=== PATIENT | male | born 1940 | race Caucasian/White ===

== ENCOUNTER 2017-03-22 09:11 | Outpatient (CLI) | payer MEDICARE, OTHER ==
--- NOTE | 2017-03-22 12:40 | CT ---
CT THORAX WITHOUT IV CONTRAST: Date: 03-22-17 History: Follow up left lower lobe nodule. COPD. Comparison: No prior CT available for direct comparison. FINDINGS: An approximately 4 mm pleural based nodular density is seen in the superior aspect of the major fiss ure on the right. Calcified granuloma is present at the right lung apex. No additional noncalcified pulmonary nodule i s seen within the lungs bilaterally. There is mild linear increased density seen in the right upper lobe which may be related to an area of mild scarring. No pleural effusion is present. Prominent vascular calcifications are seen in the coronary arteries as well as involving the visuali zed thoracic and upper abdominal aorta. There are calcified mediastinal and right hilar lymph nodes identified. Post cholecystectomy changes are noted. There is limited evaluation of the vascular structures due to the nonenhanced examination. There is a low density incompletely imaged calcific lesion in the superior pole right kidney, also s een on prior CT lumbar spine on 11-15-14 and also visualized on MRI lumbar spine of 10-24-14 likely re lated to a small cyst. There is a small nodule seen within the subcutaneous soft tissues left anterolateral chest wall whic h measures 13 mm in greatest dimensions and may represent a small lymph node. IMPRESSION: 1. No discrete pulmonary nodule is identified in the left lower lobe as indicated by provided histor y. There is a tiny 4 mm pleural based nodular density along the major fissure which is in the right upper lobe. This may represent a small focal area of nodular pleural thickening. 2. Prominent vascular calcifications in the coronary arteries. 3. Hypodense cystic region superior pole right kidney seen on prior studies in 2015 and likely repre sents a renal cyst. 4. Small subcutaneous nodule left anterolateral chest may represent a small lymph node. POS: [facility]
== END 2017-03-22 09:12 | disposition home or self-care (01) ==
LOC: CT 09:11
PROVIDERS: ATTEND Orthopaedic Surgery Sports Medicine
DX: R91.1 Solitary pulmonary nodule (principal); R91.8 Other nonspecific abnormal finding of lung field; I25.10 Atherosclerotic heart disease of native coronary artery without angina pectoris; N28.89 Other specified disorders of kidney and ureter
CPT/HCPCS: 71250

== ENCOUNTER 2017-06-11 21:30 | Inpatient (IN) | payer MEDICARE ==
[2017-06-11 22:15] LABS: #Eosinphils 0.2 thou/uL (0.0-0.7); #Lymphocytes 2.1 thou/uL (1.20-3.40); #Monocytes 1.3 thou/uL (0.11-0.59); #Neutrophils 10.1 thou/uL (1.40-6.50); %Basophils 0.2 % (0.0-1.0); %Eosinophils 1.4 % (0.0-10.0); %Lymphocytes 15.2 % (21.0-51.0); %Monocytes 9.6 % (0.0-10.0); %Neutrophils 73.5 % (42.0-75.0); Hemoglobin 11.8 g/dL (14.0-18.0); Mean Corpuscular HGB CONC 32.1 g/dL (32.0-36.0); Mean Corpuscular Hemoglobin 27.6 pg (27.0-31.0); Mean Corpuscular Volume 86.3 fl (80.0-94.0); Mean Platelet Volume 7.3 fL (7.4-10.4); Platelet Count 240 thou/uL (130-400); RBC Distribution Width 15.8 % (11.5-14.5); Red Blood Cell (RBC) Count 4.25 mill/uL (4.70-6.10); White Blood Cell (WBC) Count 13.7 thou/uL (4.8-10.8)
[2017-06-11 22:20] LABS: Actual Bicarbonate (HCO3a) 27.1 mEq/L (22-26); Base Excess (BEa) 2.2 mEq/L (0 (+/-) 2.5); CO2 Tension 43.6 mmHg (35.0-45.0); Hematocrit-ABG 36.1 % (42.0-52.0); Hemoglobin (Hb) 11.2 g/dL (14.0-18.0); O2 Tension (PaO2) 174.9 mmHg (80.0-100.0); pH, Arterial 7.41 (7.35-7.45)
[2017-06-11 22:21] LABS: PTT 33.2 SEC (22.9-36.1)
[2017-06-11 22:21] LABS: Analyzer IN Cardio ER; Calcium, Ionized 1.2 mmol/L (1.12-1.30); Puncture Site RRA
[2017-06-11] MEDS ORDERED: Nitroglycerin 2% Ointment 1 INCH/1 GM Packet ONE (22:25)
[2017-06-11] MEDS ORDERED: Furosemide 40 MG/4 ML VIAL ONE (22:25)
[2017-06-11] MEDS ORDERED: Dexamethasone 10 MG/ML VIAL ONE (22:25)
[2017-06-11 22:26] LABS: INR-International Normal Ratio 1.1; Prothrombin Time 14.1 SEC (12.0-14.7)
[2017-06-11 22:36] LABS: ALT (SGPT) 24 U/L (8-55); AST (SGOT) 20 U/L (5-34); Alkaline Phosphatase 98 U/L (40-150); Anion Gap 13 mmol/L (10-20); BUN (Urea Nitrogen) 29 mg/dL (8.4-25.7); Bilirubin, Total 0.4 mg/dL (0.2-1.2); CK (CPK) 105 U/L (30-200); Calc. Creatinine Clearance 0 mL/min (70-130); Carbon Dioxide 28 mmol/L (23-31); Chloride 103 mmol/L (98-107); Estimated GFR-MDRD 36; Globulin 3.3 g/dL (2.4-3.5); Glucose 192 mg/dL (83-110); Lipase 33 U/L (8-78); Potassium 4.9 mmol/L (3.5-5.1); Protein, Total 7.3 g/dL (5.8-8.1); Sodium 139 mmol/L (136-145)
[2017-06-11 22:40] LABS: CKMB 1.6 ng/mL (0-6.6)
--- NOTE | 2017-06-11 22:52 | RAD ---
CHEST ONE VIEW 06/11/17 HISTORY: Dyspnea. COMPARISON: Chest one view 06/04/16. FINDINGS: The heart size is enlarged. Mild pulmonary venous congestion. No pneumothorax or large effusion. IMPRESSION: Mild cardiomegaly and pulmonary venous congestion. POS: [facility]
[2017-06-11 23:31] LABS: Bilirubin Negative (Negative); Blood, Urine Negative (Negative); Clarity CLEAR (Clear); Glucose, Urine (Dipstick) Negative (Negative); Leukocyte Negative (Negative); Nitrite Negative (Negative); Protein, Urine (Dipstick) Negative (Neg-Trace); Specific Gravity, Urine 1.017 (1.002-1.036); Urobilinogen 0.2 mg/dL (0.2-1.0)
[2017-06-12] MEDS ORDERED: Dextrose 50% Abboject 50 ML SYRINGE SLOW IVP PRN ×2 (01:07→10:11)
[2017-06-12] MEDS ORDERED: Dextrose 5% in Water 1,000 ML IV PRN ×2 (01:07→10:11)
[2017-06-12] MEDS ORDERED: Acetaminophen 325 MG TAB PO PRN (01:07)
[2017-06-12] MEDS ORDERED: Guaifenesin DM 100-10/5 ML UDCUP PO PRN (01:07)
--- NOTE | 2017-06-12 02:34 | HP ---
REASON FOR ADMISSION: Acute respiratory failure with hypoxia, on BiPAP; acute congestive heart failure exacerbation; acute chronic obstructive pulmonary disease exacerbation. HISTORY OF PRESENT ILLNESS: The patient gives history of shortness of breath from 1 week. This has been progressively getting worse. He has a followup appointment on Tuesday and does not think that he could make it. He also complains of fluid buildup with swelling of both lower extremities. He has no chest pain or palpitation. The patient normally is on 3 liters nasal cannula at home. He has taken his flu shot for this year and has had a pneumococcal shot as well. No history of fever at home. PAST MEDICAL AND SURGICAL HISTORY: Chronic obstructive pulmonary disease, hypertension, cholecystectomy, congestive heart failure with diastolic dysfunction, paroxysmal atrial fibrillation, obstructive sleep apnea, morbid obesity, pulmonary hypertension, history of rheumatoid arthritis, history of psoriasis, multiple back surgeries, depression. PERSONAL HISTORY: Quit smoking 15 years ago, does not abuse alcohol or drugs. Lives with his . FAMILY HISTORY: No history of lung disease or vascular disease. CURRENT MEDICATIONS: The patient is on MiraLax daily, potassium chloride 30 mEq p.o. daily, Breo Ellipta inhaler daily, Brilinta 90 mg twice daily, Otezla 30 mg p.o. twice daily, Crestor 20 mg daily, amiodarone 200 mg twice daily, metolazone 5 mg every other day, valsartan 320 mg daily, Lasix 80 mg 3 times a day, Coreg 25 mg twice daily, budesonide inhaler daily, glipizide 5 mg daily, aspirin 81 mg daily, CoQ10 of 100 mg daily, fluoxetine 20 mg 3 times daily, cetirizine 5 mg daily, hydroxyzine 25 mg 3 times daily. ALLERGIES: No known drug allergies. REVIEW OF SYSTEMS: The following complete review of systems was negative, unless otherwise mentioned in the HPI or below: Constitutional: Weight loss or gain, ability to conduct usual activities. Skin: Rash, itching. Eyes: Double vision, pain. ENT/Mouth: Nose bleeding, neck stiffness, pain, tenderness. Cardiovascular: Palpitations, dyspnea on exertion, orthopnea. Respiratory: Shortness of breath, wheezing, cough, hemoptysis, fever or night sweats. Gastrointestinal: Poor appetite, abdominal pain, heartburn, nausea, vomiting, constipation, or diarrhea. Genitourinary: Urgency, frequency, dysuria, nocturia. Musculoskeletal: Pain, swelling. Neurologic/Psychiatric: Anxiety, depression. Allergy/Immunologic: Skin rash, bleeding tendency. PHYSICAL EXAMINATION: GENERAL: The patient is a 77-year-old male, who is currently on BiPAP. VITAL SIGNS: Blood pressure 144/80, pulse 72 per minute, respiratory rate 22 per minute, temperature 98.3 degrees Fahrenheit, saturating 100% on BiPAP. NECK: Supple, no elevated JVD. HEENT: Eyes: Extraocular muscles are intact. Pupils are reacting to light. Oral cavity: Mucous membranes are moist. No exudates or congestion. CARDIOVASCULAR SYSTEM: S1, S2 heard. Regular rhythm. RESPIRATORY SYSTEM: Air entry 1+ bilateral. Scattered rales plus bilateral. ABDOMEN: Soft, bowel sounds heard. No tenderness, rigidity or guarding. EXTREMITIES: There is 2+ peripheral edema, no calf tenderness. VASCULAR SYSTEM: Peripheral pulses 1+ bilateral. No ischemic ulcerations or gangrene. CENTRAL NERVOUS SYSTEM: No gross focal deficits seen. The patient is alert and oriented well. PSYCHIATRIC SYSTEM: The patient's mood is euthymic. No hallucinations or delusions. LABORATORY AND X-RAY FINDINGS: White count of 13, H&H 11 and 36, platelet count 240 with 73% neutrophils, MCV is 86. PT, INR, PTT within normal limits. Blood gas done shows a pH of 7.41, PCO2 of 43, PO2 of 174. Electrolytes are stable. BUN 29, creatinine 1.8, glucose 192. Liver enzymes are within normal limits. Cardiac enzymes are negative. BNP is 147. Lipase is 33. Influenza A and B antigens are negative. Chest x-ray done shows pulmonary vascular congestion with mild cardiomegaly. CLINICAL IMPRESSION AND PLAN: The patient will be admitted to [facility] for acute respiratory failure with hypoxia, acute chronic obstructive pulmonary disease exacerbation. The patient will be on Lasix 40 mg IV q.12 hourly. We will also add metolazone 2.5 mg daily. He will be on DuoNebs q.6 hourly and Solu-Medrol 40 mg IV q.6 hourly. We will continue his Brilinta, low dose aspirin, Coreg at a smaller dose at 6.25 twice daily to accommodate for diuresis and CoQ10 100 mg at bedtime. We will also continue sucralfate and Crestor as before. His Cozaar will be held for now. He will be empirically placed on Levaquin 750 mg daily. We will continue to closely monitor him. The patient has known history of multivessel coronary artery disease and is a prohibitive risk for surgery due to severe lung disease. MTDD
[2017-06-12 02:43] VITALS: BMI 44.6
[2017-06-12 05:16] LABS: #Eosinphils 0.1 thou/uL (0.0-0.7); #Lymphocytes 1.5 thou/uL (1.20-3.40); #Monocytes 0.2 thou/uL (0.11-0.59); #Neutrophils 8.7 thou/uL (1.40-6.50); %Basophils 0.2 % (0.0-1.0); %Eosinophils 1.1 % (0.0-10.0); %Lymphocytes 13.9 % (21.0-51.0); %Neutrophils 82.7 % (42.0-75.0); Hemoglobin 10.8 g/dL (14.0-18.0); Mean Corpuscular Hemoglobin 27.4 pg (27.0-31.0); Mean Corpuscular Volume 85.5 fl (80.0-94.0); Mean Platelet Volume 7.4 fL (7.4-10.4); Platelet Count 213 thou/uL (130-400); RBC Distribution Width 15.7 % (11.5-14.5); Red Blood Cell (RBC) Count 3.95 mill/uL (4.70-6.10); White Blood Cell (WBC) Count 10.5 thou/uL (4.8-10.8)
[2017-06-12 05:39] LABS: Anion Gap 14 mmol/L (10-20); BUN (Urea Nitrogen) 30 mg/dL (8.4-25.7); Calc. Creatinine Clearance 77 mL/min (70-130); Calcium 9.7 mg/dL (7.8-10.44); Carbon Dioxide 26 mmol/L (23-31); Chloride 102 mmol/L (98-107); Estimated GFR-MDRD 37; Glucose 237 mg/dL (83-110); Potassium 4.5 mmol/L (3.5-5.1); Sodium 137 mmol/L (136-145)
[2017-06-12] MEDS ORDERED: Furosemide 40 MG/4 ML VIAL SLOW IVP SCH ×2 (06:00→11:45)
[2017-06-12] MEDS: HumaLOG 300 UNITS/3 ML VIAL SC PRN ×4 (07:21→21:23)
[2017-06-12] MEDS: Sucralfate 1 GM TAB PO SCH ×4 (08:43→20:41)
[2017-06-12] MEDS ORDERED: Famotidine 20 MG TAB PO SCH (09:00)
[2017-06-12] MEDS: Rosuvastatin 20 MG TAB PO SCH (09:01)
[2017-06-12] MEDS: Docusate 100 MG CAP PO SCH ×2 (09:01→20:42)
[2017-06-12] MEDS: FLUoxetine HCl 20 MG CAP PO SCH ×2 (09:01→20:41)
[2017-06-12] MEDS: Carvedilol 6.25 MG TAB PO SCH ×2 (09:01→20:41)
[2017-06-12] MEDS: TICAGRELOR 90 MG TABLET PO SCH ×2 (09:22→20:40)
[2017-06-12] MEDS ORDERED: Metolazone 5 MG TAB PO SCH (11:45)
[2017-06-12] MEDS: Furosemide 40 MG/4 ML VIAL SLOW IVP SCH (13:51)
--- NOTE | 2017-06-12 14:08 | CON ---
DATE OF CONSULTATION: 06/12/2017 HISTORY OF PRESENT ILLNESS: The patient is a 77-year-old gentleman with a history of coronary artery disease who presents with increasing dyspnea and lower extremity swelling. The patient has a long history of coronary artery disease. The patient recently was in the hospital in 07/2016 and underwent cardiac evaluation and was found to have severe 3-vessel coronary artery disease. He subsequently underwent PTCA and stent placement in the left anterior descending, obtuse marginal branch and left circumflex artery. He subsequently underwent PTCA and stent placement into the RCA . The patient was felt to be at prohibitive risk for surgery due to severe COPD. The patient also has a history of atrial fibrillation and he has undergone several oblations for atrial fibrillation. The patient unfortunately suffers from sleep apnea and morbid obesity. The patient presented to the hospital with marked increased lower extremity swelling and dyspnea. He denied having any chest discomfort. PAST MEDICAL HISTORY: 1. COPD. 2. Hypertension. 3. Paroxysmal atrial fibrillation. 4. Morbid obesity. 5. Rheumatoid arthritis. PAST SURGICAL HISTORY: Cholecystectomy and back surgery. SOCIAL HISTORY: He is a former smoker. FAMILY HISTORY: No strong family history of heart disease. MEDICATIONS ON ADMISSION: See nursing list. ALLERGIES: No known drug allergies. REVIEW OF SYSTEM: Noticeable for increasing weight gain. No bright red blood per rectum, hematuria or palpitations. PHYSICAL EXAMINATION: GENERAL: This is an obese gentleman in no acute distress. Blood pressure 161/ 77. NECK: Full. LUNGS: Clear to auscultation. HEART: Regular rate and rhythm with a normal S1 and S2. ABDOMEN: Distended. EXTREMITIES: Severe bilateral edema. SKIN: Warm and dry. NEUROLOGIC: Nonfocal. VASCULAR: Radial pulses are 2+. LABORATORY RESULTS: Sodium is 137, potassium 4.5, chloride 102, bicarbonate 26 , BUN 30 and creatinine is 1.79. His white blood cell count is 10.5, hemoglobin 10.8, hematocrit 33.8 and platelets are 213. IMAGING DATA: His EKG revealed him to have normal sinus rhythm with a nonspecific T-wave abnormality. IMPRESSION: 1. Congestive heart failure, probably secondary to right-sided heart failure. 2. Chronic obstructive pulmonary disease. 3. History of atrial fibrillation. 4. Renal insufficiency. 5. Diabetes mellitus. 6. Hypertension. 7. Morbid obesity. PLAN: This gentleman presents with right-sided heart failure, probably secondary to sleep apnea, morbid obesity and diastolic dysfunction. The patient is being diuresed with IV Lasix. He has chronic renal insufficiency. From a cardiac standpoint, we would try to decrease the dose of the patient's Coreg since he also has severe chronic obstructive pulmonary disease. We will follow this patient with you through his hospitalization. PERCY
--- NOTE | 2017-06-12 17:10 | PDOC.EVN ---
Event Note - Event Note Event Note: pt seen and evaluated agree with current plan
[2017-06-12] MEDS: Ubidecarenone 50 MG CAP PO SCH (20:39)
--- NOTE | 2017-06-12 23:28 | CON ---
DATE OF CONSULTATION: 06/12/2017 SERVICE: Pulmonary Medicine. HISTORY OF PRESENT ILLNESS: The patient is a 77-year-old white male. He had multiple family engagements recently. He had [place], his 's birthday, and 2 different family functions because there was a in the family. With this, he put over 30 pounds of weight on over a 2-month period of time. He had increasing difficulty with breathing, got to the point where he could not even walk to the bathroom and back. He lost his water weight get away from him. As such, he developed respiratory failure. He denied any fevers or chills. He had no sick contacts. He is not coughing up any sputum, but he is coughing. The only reprieve he gets is when he wears his BiPAP. PAST MEDICAL HISTORY: 1. COPD. 2. Chronic diastolic heart failure. 3. Paroxysmal atrial fibrillation. 4. Obstructive sleep apnea, severe. 5. Morbid obesity. 6. Pulmonary hypertension, multifactorial. 7. History of rheumatoid arthritis. 8. Psoriasis. PAST SURGICAL HISTORY: 1. Multiple back surgeries. 2. Cholecystectomy. SOCIAL HISTORY: Negative for alcohol, tobacco, or illicit drug use currently. He has quit smoking 15 years ago. Prior to that, he had a [id number] history of smoking. He currently lives with his . He has no exposure to chemicals , dust, asbestos, or tuberculosis. FAMILY HISTORY: Noncontributory. ALLERGIES: No known drug allergies. MEDICATIONS: List of his inpatient medications were reviewed. No specific updates were made at this time. REVIEW OF SYSTEMS: General, head, eyes, nose, throat, cardiovascular, respiratory, GI, , musculoskeletal, neurologic, and skin is negative except as mentioned in the HPI. PHYSICAL EXAMINATION: VITAL SIGNS: Afebrile, pulse 66, blood pressure 153/77, respirations 20, saturation 96% on 3 liters nasal cannula. GENERAL: Patient is awake, alert, in no apparent distress. LUNGS: Extensive crackles are present. There is a prolonged expiratory phase and wheezing. Rhonchi are present. HEART: Normal rate, regular. ABDOMEN: Soft, nontender, nondistended. Bowel sounds positive. MUSCULOSKELETAL: No cyanosis or clubbing. There is 2-3+ pitting in the bilateral lower extremities. NEUROLOGIC: Grossly nonfocal. LABORATORIES: WBC 10.5, hemoglobin 10.8, platelets 213,000. INR 1.1. PH 7.41 , pCO2 43, pO2 174. Creatinine 1.79 and gently downtrending. BUN 30. Basic metabolic profile is otherwise unremarkable. Magnesium is normal. Liver function studies are unremarkable. BNP is elevated. Troponin is negative. Urinalysis is unremarkable. Influenza A and B are negative. IMAGING: Chest x-ray demonstrates pulmonary vascular congestion as well as interstitial opacifications consistent with volume overload. I do not appreciate any overt pulmonary edema. ASSESSMENT: 1. Acute hypoxic respiratory failure. 2. Chronic obstructive pulmonary disease with acute exacerbation. 3. Obstructive sleep apnea, severe. 4. Acute on chronic diastolic heart failure. PLAN: We will continue to diurese the patient aggressively until he approaches euvolemia. At this point, he is stable for transition out of the [facility]. He uses BiPAP at home on and off basis during the daytime as well as at night. Pulmonary will continue to follow while he remains in this location. I will decrease his steroids to 40 mg p.o. on a daily basis. We will continue our nebulized medications as well as other antibiotics. 70 minutes have been devoted to this patient in various activities. I personally reviewed all imaging studies and laboratory data noted within this document. For at least half of this time, I was interacting with the patient at bedside or coordinating care with the care team. For the remainder of the time, I was immediately available to the patient in the hospital unit. PERCY
[2017-06-13 04:35] LABS: #Basophils 0.1 thou/uL (0.0-0.2); #Eosinphils 0.1 thou/uL (0.0-0.7); #Lymphocytes 2.6 thou/uL (1.20-3.40); #Monocytes 1.1 thou/uL (0.11-0.59); #Neutrophils 12.4 thou/uL (1.40-6.50); %Basophils 0.4 % (0.0-1.0); %Eosinophils 0.6 % (0.0-10.0); %Monocytes 6.8 % (0.0-10.0); %Neutrophils 76.2 % (42.0-75.0); Hemoglobin 11.2 g/dL (14.0-18.0); Mean Corpuscular HGB CONC 32.4 g/dL (32.0-36.0); Mean Corpuscular Hemoglobin 27.6 pg (27.0-31.0); Mean Corpuscular Volume 85.1 fl (80.0-94.0); Mean Platelet Volume 7.2 fL (7.4-10.4); Platelet Count 247 thou/uL (130-400); RBC Distribution Width 15.7 % (11.5-14.5); Red Blood Cell (RBC) Count 4.06 mill/uL (4.70-6.10); White Blood Cell (WBC) Count 16.2 thou/uL (4.8-10.8)
[2017-06-13 05:01] LABS: Albumin 3.8 g/dL (3.4-4.8); Anion Gap 14 mmol/L (10-20); BUN (Urea Nitrogen) 46 mg/dL (8.4-25.7); Calc. Creatinine Clearance 65 mL/min (70-130); Calcium 9.7 mg/dL (7.8-10.44); Carbon Dioxide 28 mmol/L (23-31); Chloride 98 mmol/L (98-107); Estimated GFR-MDRD 31; Glucose 210 mg/dL (83-110); Phosphorus 3.6 mg/dL (2.3-4.7); Potassium 3.8 mmol/L (3.5-5.1); Sodium 136 mmol/L (136-145)
[2017-06-13] MEDS: Furosemide 40 MG/4 ML VIAL SLOW IVP SCH ×2 (05:44→14:51)
[2017-06-13] MEDS: predniSONE 20 MG TAB PO SCH (08:26)
[2017-06-13] MEDS: Carvedilol 6.25 MG TAB PO SCH ×2 (08:26→21:51)
[2017-06-13] MEDS: Rosuvastatin 20 MG TAB PO SCH (08:26)
[2017-06-13] MEDS: Docusate 100 MG CAP PO SCH ×2 (08:26→21:51)
[2017-06-13] MEDS: FLUoxetine HCl 20 MG CAP PO SCH ×2 (08:27→21:51)
[2017-06-13] MEDS: Sucralfate 1 GM TAB PO SCH ×4 (08:27→21:50)
[2017-06-13] MEDS: TICAGRELOR 90 MG TABLET PO SCH ×2 (08:28→21:50)
[2017-06-13] MEDS: HumaLOG 300 UNITS/3 ML VIAL SC PRN ×3 (12:09→21:51)
--- NOTE | 2017-06-13 15:29 | PRG ---
DATE OF SERVICE: 06/13/2017 SERVICE: Pulmonary Medicine. INTERVAL HISTORY: The patient is doing well from a cardiovascular and respiratory standpoint. He is breathing much more comfortably this morning. He slept well. He has no overnight events. Otherwis e, there has been no interval change to his condition. The BiPAP can be discontinued. The patient c an use his home unit at night. PHYSICAL EXAMINATION: VITAL SIGNS: Afebrile, pulse 90, blood pressure 150/64, respirations 18, saturation 93% on 2-1/2 lit ers nasal cannula. GENERAL: Patient is awake, alert, in no apparent distress. LUNGS: Much improved air entry. There is a slightly prolonged expiratory phase, but no wheezing tod ay. Crackles are still present. HEART: Normal rate, regular. ABDOMEN: Soft, nontender, nondistended. Bowel sounds positive. MUSCULOSKELETAL: No cyanosis or clubbing. Pitting edema has improved to 2+ in the bilateral lower e xtremities. NEUROLOGIC: Grossly nonfocal. LABORATORY DATA: WBC 16.2, hemoglobin 11.2, platelets 247,000 and stable. INR 1.1. Creatinine 2.11 and up trending. Basic metabolic profile is otherwise unremarkable. Magnesium 2.5. Urinalysis is negative. Influenza A and B is unremarkable. Blood cultures x2 remain negative. ASSESSMENT: 1. Acute on chronic hypoxic respiratory failure. 2. Chronic obstructive pulmonary disease with acute exacerbation. 3. Acute on chronic diastolic heart failure. 4. Obstructive sleep apnea, severe. PLAN: The patient will continue his BiPAP at night. We will continue our antibiotics, steroids, and nebulized medications. My suspicion is that the patient's primary reason for exacerbation and COPD is secondary to volume. Agree with aggressive diuretics. I will back off to once daily, however.
--- NOTE | 2017-06-13 18:42 | PDOC.PN ---
- Subjective Encounter Start Date: 06/13/17 Encounter Start Time: 18:40 Patient seen and examined. No new complaints. No overnight events - Objective Resuscitation Status: Resuscitation Status FULL:Full Resuscitation MAR Reviewed: Yes Vital Signs & Weight: Vital Signs (12 hours) Temp Pulse Resp BP BP Pulse Ox 06/13/17 12:04 90 18 06/13/17 08:26 150/64 H 06/13/17 08:00 97.7 F 70 22 H 150/64 H 93 L 06/13/17 07:00 70 18 Weight Weight 337 lb 8 oz I&O: 06/12/17 06/13/17 06/14/17 06:59 06:59 06:59 Intake Total 100 1750 Output Total 1400 2250 Balance -1300 -500 Result Diagrams: 06/13/17 03:57 06/13/17 03:57 Additional Labs: Accuchecks 06/13/17 06/13/17 06/13/17 16:57 11:14 05:06 POC Glucose 369 H 216 H 214 H 06/12/17 20:24 POC Glucose 332 H Phys Exam - Physical Examination Constitutional: NAD HEENT: PERRLA Neck: no JVD Respiratory: no wheezing dependent crackles Cardiovascular: no significant murmur Gastrointestinal: non-tender Musculoskeletal: pulses present Neurological: moves all 4 limbs Psychiatric: A&O x 3 Dx/Plan (1) Morbid obesity Code(s): E66.01 - MORBID (SEVERE) OBESITY DUE TO EXCESS CALORIES Status: Acute (2) COPD with acute exacerbation Code(s): J44.1 - CHRONIC OBSTRUCTIVE PULMONARY DISEASE W (ACUTE) EXACERBATION Status: Acute Comment: cont steroids, nebs (3) Diastolic CHF, acute on chronic Code(s): I50.33 - ACUTE ON CHRONIC DIASTOLIC (CONGESTIVE) HEART FAILURE Status : Acute Comment: suspect diastolic dysfunction due to hypertensive crisis. (4) Dyslipidemia Code(s): E78.5 - HYPERLIPIDEMIA, UNSPECIFIED Status: Chronic (5) Sleep apnea, obstructive Code(s): G47.33 - OBSTRUCTIVE SLEEP APNEA (ADULT) (PEDIATRIC) Status: Chronic - Plan * ef- 65% * cont current rx
[2017-06-13] MEDS: Ubidecarenone 50 MG CAP PO SCH (21:50)
--- NOTE | 2017-06-13 23:34 | CON ---
NEPHROLOGY CONSULTATION NOTE DATE OF CONSULTATION: 06/13/2017 CONSULTING PHYSICIAN: Vannesa Torres M.D. REASON FOR CONSULTATION: Acute kidney injury. REASON FOR ADMISSION: Shortness of breath. HISTORY OF PRESENT ILLNESS: This is a 77-year-old male with history of chronic kidney disease, COPD, hypertension, congestive heart failure and AFib, who came to the hospital with shortness of breath and is being evaluated for CHF and COPD exacerbation. The patient is feeling much better. His baseline creatinine is around 1.82 and this morning was found to be 2.1 and Nephrology consultation per family request for evaluation of renal function. No fever or chills. No nausea or vomiting. No chest pain or palpitations. PAST MEDICAL HISTORY: Positive for COPD, hypertension, congestive heart failure , diastolic dysfunction, AFib, obstructive sleep apnea, pulmonary hypertension, rheumatoid arthritis, psoriasis and depression. PAST SURGICAL HISTORY: Cholecystectomy and back surgeries. HOME MEDICATIONS: Include MiraLax, potassium chloride, Breo, Brilinta, Otezla, Crestor, amiodarone, metolazone, Valsartan, Lasix, Coreg, prednisone, glipizide , aspirin, coenzyme Q10, fluoxetine, cetirizine and hydroxyzine. ALLERGIES: No known drug allergies. SOCIAL HISTORY: No smoking, alcohol or illicit drug abuse. Remote history of smoking. FAMILY HISTORY: No history of any kidney disease. REVIEW OF SYSTEMS: The following complete review of systems was negative, unless otherwise mentioned in the HPI or below: CONSTITUTIONAL: Weight loss or gain, ability to conduct usual activities. SKIN: Rash, itching. EYES: Double vision, pain. ENT/MOUTH: Nose bleeding, neck stiffness, pain, tenderness. CARDIOVASCULAR: Palpitations, dyspnea on exertion, orthopnea. RESPIRATORY: Shortness of breath, wheezing, cough, hemoptysis, fever or night sweats. GASTROINTESTINAL: Poor appetite, abdominal pain, heartburn, nausea, vomiting, constipation, or diarrhea. GENITOURINARY: Urgency, frequency, dysuria, nocturia. MUSCULOSKELETAL: Pain, swelling. NEUROLOGIC/PSYCHIATRIC: Anxiety, depression. ALLERGY/IMMUNOLOGIC: Skin rash, bleeding tendency. PHYSICAL EXAMINATION: GENERAL: This is an obese male in no apparent distress. VITAL SIGNS: Temperature 97.7, pulse 70, respiratory rate 16 and blood pressure 150/64. HEENT: Atraumatic, normocephalic. Oral mucosa is moist. NECK: Supple. CARDIOVASCULAR: S1, S2 heard. Rate and rhythm regular. RESPIRATORY: Clear. GASTROINTESTINAL: Abdomen is soft. MUSCULOSKELETAL: 2+ edema. DERMATOLOGIC: No skin rash. NEUROLOGIC: Alert and awake. PSYCHIATRIC: Mood and affect normal. LABORATORY DATA: Potassium is 3.8, BUN is 46 and creatinine is 2.1. Hemoglobin is 11.2. ASSESSMENT AND PLAN: 1. 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 Renal function was slightly worsening with diuresis. Agree with diuresis with cautious monitoring. 2. Hypokalemia, replace. 3. Edema, better. 4. Cardiorenal syndrome. 5. Hyperglycemia. 6. Obesity. 7. Mild hypoalbuminemia. 8. Anemia. 9. Hypertension, titrate medications. 10. Agree with current plan. We will monitor renal function closely. Avoid nephrotoxins. We will follow. Thank you for the consultation. PERCY
[2017-06-14 05:38] LABS: #Eosinphils 0.1 thou/uL (0.0-0.7); #Lymphocytes 3.5 thou/uL (1.20-3.40); #Monocytes 1.4 thou/uL (0.11-0.59); #Neutrophils 10.2 thou/uL (1.40-6.50); %Basophils 0.1 % (0.0-1.0); %Eosinophils 0.8 % (0.0-10.0); %Lymphocytes 23.1 % (21.0-51.0); Hemoglobin 11.3 g/dL (14.0-18.0); Mean Corpuscular HGB CONC 31.6 g/dL (32.0-36.0); Mean Corpuscular Hemoglobin 26.8 pg (27.0-31.0); Mean Corpuscular Volume 84.8 fl (80.0-94.0); Mean Platelet Volume 7.6 fL (7.4-10.4); Platelet Count 262 thou/uL (130-400); RBC Distribution Width 15.8 % (11.5-14.5); Red Blood Cell (RBC) Count 4.21 mill/uL (4.70-6.10); White Blood Cell (WBC) Count 15.3 thou/uL (4.8-10.8)
[2017-06-14 05:58] LABS: Albumin 3.6 g/dL (3.4-4.8); Anion Gap 15 mmol/L (10-20); BUN (Urea Nitrogen) 54 mg/dL (8.4-25.7); BUN/Creatinine Ratio 25.35; Calc. Creatinine Clearance 65 mL/min (70-130); Calcium 9.5 mg/dL (7.8-10.44); Carbon Dioxide 30 mmol/L (23-31); Chloride 95 mmol/L (98-107); Estimated GFR-MDRD 30; Glucose 156 mg/dL (83-110); Magnesium 2.7 mg/dL (1.6-2.6); Phosphorus 4.1 mg/dL (2.3-4.7); Sodium 137 mmol/L (136-145)
[2017-06-14] MEDS: Furosemide 100 MG/10 ML VIAL SLOW IVP SCH (06:30)
[2017-06-14] MEDS ORDERED: Potassium Chloride 20 MEQ TAB PO SCH (11:00)
--- NOTE | 2017-06-14 11:05 | PRG ---
DATE OF SERVICE: 06/14/2016 SUBJECTIVE: Patient was seen and examined at bedside and overnight events noted. Patient denies any shortness of breath or chest pain or palpitation. No history of nausea or vomiting or diarrhea or f ever or chills or cramps. OBJECTIVE: GENERAL: This is an obese male in no apparent distress. VITAL SIGNS: Temperature 97.7, pulse 60, respiratory rate 18, blood pressure 122/60. HEENT: Atraumatic, normocephalic. Oral mucosa is moist. NECK: Supple. CARDIOVASCULAR: S1, S2 heard. Rate and rhythm regular. RESPIRATORY: Clear to auscultation. GASTROINTESTINAL: Abdomen is soft. MUSCULOSKELETAL: No tenderness. No edema. DERMATOLOGIC: No skin rash. NEUROLOGIC: Alert and awake and oriented x3. No focal neurologic deficits. Moving all the extremiti es. PSYCHIATRIC: Mood and affect normal. LABORATORY DATA: Creatinine is 2.1, potassium 3.0. ASSESSMENT AND PLAN: 1. Acute kidney injury on chronic kidney disease. Renal function is stable. 2. Hypokalemia, replaced. 3. Edema. 4. Fluid overload. 5. Cardiorenal syndrome. 6. Anemia. 7. Hypertension, stable. 8. Obesity. 9. Obstructive sleep apnea. 10. COPD. 11. Continue supportive care. Renal function is stable. Replace potassium and will follow.
[2017-06-14] MEDS: Rosuvastatin 20 MG TAB PO SCH (11:19)
[2017-06-14] MEDS: Sucralfate 1 GM TAB PO SCH ×4 (11:19→21:21)
[2017-06-14] MEDS: predniSONE 20 MG TAB PO SCH (11:19)
[2017-06-14] MEDS: FLUoxetine HCl 20 MG CAP PO SCH ×2 (11:19→21:21)
[2017-06-14] MEDS: Carvedilol 6.25 MG TAB PO SCH ×2 (11:19→21:21)
[2017-06-14] MEDS: TICAGRELOR 90 MG TABLET PO SCH ×2 (11:19→21:22)
[2017-06-14] MEDS: Docusate 100 MG CAP PO SCH ×2 (11:20→21:22)
[2017-06-14] MEDS: Potassium Chloride 20 MEQ TAB PO SCH ×3 (17:30→23:37)
--- NOTE | 2017-06-14 17:56 | PDOC.PN ---
- Subjective Encounter Start Date: 06/14/17 Encounter Start Time: 17:54 Patient seen and examined. No new complaints. No overnight events - Objective Resuscitation Status: Resuscitation Status FULL:Full Resuscitation MAR Reviewed: Yes Vital Signs & Weight: Vital Signs (12 hours) Temp Pulse Resp BP BP Pulse Ox 06/14/17 11:19 174/71 H 06/14/17 08:00 97.5 F L 57 L 22 H 174/71 H 99 06/14/17 07:29 64 20 94 L Weight Weight 339 lb I&O: 06/13/17 06/14/17 06/15/17 06:59 06:59 06:59 Intake Total 1750 150 Output Total 2250 Balance -500 150 Result Diagrams: 06/14/17 04:27 06/14/17 04:27 Additional Labs: Accuchecks 06/14/17 06/14/17 06/14/17 16:40 11:08 05:09 POC Glucose 237 H 187 H 184 H 06/13/17 20:03 POC Glucose 333 H Phys Exam - Physical Examination Constitutional: NAD HEENT: PERRLA Neck: no JVD Respiratory: no wheezing Cardiovascular: no significant murmur Gastrointestinal: non-tender Musculoskeletal: pulses present Neurological: moves all 4 limbs Psychiatric: A&O x 3 Dx/Plan (1) Diastolic CHF, acute on chronic Code(s): I50.33 - ACUTE ON CHRONIC DIASTOLIC (CONGESTIVE) HEART FAILURE Status : Acute Comment: suspect diastolic dysfunction due to hypertensive crisis. (2) Morbid obesity Code(s): E66.01 - MORBID (SEVERE) OBESITY DUE TO EXCESS CALORIES Status: Acute (3) COPD with acute exacerbation Code(s): J44.1 - CHRONIC OBSTRUCTIVE PULMONARY DISEASE W (ACUTE) EXACERBATION Status: Acute Comment: cont steroids, nebs (4) Dyslipidemia Code(s): E78.5 - HYPERLIPIDEMIA, UNSPECIFIED Status: Chronic (5) Sleep apnea, obstructive Code(s): G47.33 - OBSTRUCTIVE SLEEP APNEA (ADULT) (PEDIATRIC) Status: Chronic (6) Renal failure (ARF), acute on chronic Code(s): N17.9 - ACUTE KIDNEY FAILURE, UNSPECIFIED; N18.9 - CHRONIC KIDNEY DISEASE, UNSPECIFIED Status: Acute - Plan * f/u renal plan * continue current treatment * pulm and card input appreciated
[2017-06-14] MEDS: Ubidecarenone 50 MG CAP PO SCH (21:20)
[2017-06-14] MEDS: HumaLOG 300 UNITS/3 ML VIAL SC PRN (21:22)
[2017-06-15] MEDS: Furosemide 100 MG/10 ML VIAL SLOW IVP SCH (06:00)
[2017-06-15] MEDS: HumaLOG 300 UNITS/3 ML VIAL SC PRN ×3 (06:17→16:39)
[2017-06-15 07:13] LABS: Albumin 3.8 g/dL (3.4-4.8); Anion Gap 12 mmol/L (10-20); BUN (Urea Nitrogen) 53 mg/dL (8.4-25.7); BUN/Creatinine Ratio 25.73; Calc. Creatinine Clearance 67 mL/min (70-130); Carbon Dioxide 37 mmol/L (23-31); Chloride 93 mmol/L (98-107); Estimated GFR-MDRD 32; Glucose 197 mg/dL (83-110); Magnesium 2.7 mg/dL (1.6-2.6); Phosphorus 3.1 mg/dL (2.3-4.7); Potassium 3.1 mmol/L (3.5-5.1); Sodium 139 mmol/L (136-145)
[2017-06-15] MEDS: TICAGRELOR 90 MG TABLET PO SCH ×2 (09:21→20:14)
[2017-06-15] MEDS: Rosuvastatin 20 MG TAB PO SCH (09:22)
[2017-06-15] MEDS: Sucralfate 1 GM TAB PO SCH ×4 (09:22→20:13)
[2017-06-15] MEDS: Carvedilol 6.25 MG TAB PO SCH ×2 (09:23→20:14)
[2017-06-15] MEDS: predniSONE 20 MG TAB PO SCH (09:23)
[2017-06-15] MEDS: FLUoxetine HCl 20 MG CAP PO SCH ×2 (09:23→20:13)
[2017-06-15] MEDS: Docusate 100 MG CAP PO SCH ×2 (09:26→20:14)
[2017-06-15] MEDS: Potassium Chloride 20 MEQ TAB PO SCH ×3 (09:27→20:14)
--- NOTE | 2017-06-15 13:38 | PDOC.PN ---
- Subjective Encounter Start Date: 06/15/17 Encounter Start Time: 09:20 Pt seen for followup re: CHF exacerbation. Reports feeling better. Shortness of breath is better. - Objective Resuscitation Status: Resuscitation Status FULL:Full Resuscitation MAR Reviewed: Yes Vital Signs & Weight: Vital Signs (12 hours) Temp Pulse Resp BP BP Pulse Ox 06/15/17 09:23 129/59 L 06/15/17 08:04 61 20 93 L 06/15/17 08:00 98.6 F 61 20 93 L 06/15/17 07:14 98.6 F 61 18 119/65 92 L 06/15/17 04:00 97.4 F L 53 L 20 136/85 96 Weight Weight 338 lb 2 oz I&O: 06/14/17 06/15/17 06/16/17 06:59 06:59 06:59 Intake Total 150 700 Balance 150 700 Result Diagrams: 06/14/17 04:27 06/15/17 04:15 Additional Labs: Accuchecks 06/15/17 06/15/17 06/14/17 11:00 05:01 20:07 POC Glucose 183 H 225 H 404 H 06/14/17 16:40 POC Glucose 237 H Phys Exam - Physical Examination Morbid obesity HEENT: moist MMs Neck: supple Bibasal crackles Cardiovascular: RRR Gastrointestinal: soft Musculoskeletal: edema present Neurological: moves all 4 limbs Psychiatric: normal affect Deviation from normal: Melchor LE stasis dermatitis Dx/Plan (1) Diastolic CHF, acute on chronic Code(s): I50.33 - ACUTE ON CHRONIC DIASTOLIC (CONGESTIVE) HEART FAILURE Status : Acute Comment: suspect diastolic dysfunction due to hypertensive crisis. (2) HTN (hypertension) Code(s): I10 - ESSENTIAL (PRIMARY) HYPERTENSION Status: Acute (3) CKD (chronic kidney disease) Code(s): N18.9 - CHRONIC KIDNEY DISEASE, UNSPECIFIED Status: Acute (4) DM type 2 (diabetes mellitus, type 2) Status: Chronic (5) Dyslipidemia Code(s): E78.5 - HYPERLIPIDEMIA, UNSPECIFIED Status: Chronic (6) Paroxysmal atrial fibrillation Code(s): I48.0 - PAROXYSMAL ATRIAL FIBRILLATION Status: Chronic Comment: on xarelto (7) Sleep apnea, obstructive Code(s): G47.33 - OBSTRUCTIVE SLEEP APNEA (ADULT) (PEDIATRIC) Status: Chronic - Plan out of bed/ambulate * . Continue furosemide. Monitor vital signs, titrate antihypertensives as needed. CPAP use when asleep. Monitor renal function Continue accuchecks, insulin sliding scale. Review of Systems - Review of Systems Respiratory: Shortness of Breath, SOB with Excertion. negative: Cough, Dry, Hemoptysis, Pleuritic Pain, Sputum, Wheezing Cardiovascular: negative: chest pain, palpitations, orthopnea, paroxysmal nocturnal dyspnea, edema, light headedness - Medications/Allergies Allergies/Adverse Reactions: Allergies Allergy/AdvReac Type Severity Reaction Status Date / Time No Known Allergies Allergy Verified 07/22/16 02:17 Medications: Current Medications Acetaminophen (Tylenol) 650 mg PO Q4H PRN PRN Reason: Headache/Fever or Pain Albuterol/Ipratropium (Duoneb) 3 ml NEB S1AP-HA [facility] Last Admin: 06/15/17 08:04 Dose: 3 ml Aspirin (Aspirin Chewable) 81 mg PO DAILY [facility] Last Admin: 06/15/17 09:22 Dose: 81 mg Carvedilol (Coreg) 6.25 mg PO BID [facility] Last Admin: 06/15/17 09:23 Dose: 6.25 mg Coenzyme Q10 (Coenzyme Q10) 100 mg PO HS [facility] Last Admin: 06/14/17 21:20 Dose: 100 mg Dextrose/Water (Dextrose 50%) 25 gm SLOW IVP PRN PRN PRN Reason: Hypoglycemia Docusate Sodium (Colace) 100 mg PO BID [facility] Last Admin: 06/15/17 09:26 Dose: 100 mg Fluoxetine HCl (Prozac) 20 mg PO BID [facility] Last Admin: 06/15/17 09:23 Dose: 20 mg Furosemide (Lasix) 80 mg SLOW IVP 0600 [facility] Last Admin: 06/15/17 06:00 Dose: 80 mg Glucagon (Glucagon) 1 mg IM PRN PRN PRN Reason: Hypoglycemia Guaifenesin/Dextromethorphan (Robitussin Dm) 15 ml PO Q4H PRN PRN Reason: Cough Dextrose/Water (D5w) 1,000 mls @ 0 mls/hr IV .Q0M PRN; As Directed PRN Reason: Hypoglycemia Levofloxacin 750 mg/ Device 150 mls @ 100 mls/hr IVPB Q2D [facility] Last Admin: 06/13/17 21:50 Dose: 150 mls Insulin Human Lispro (Humalog) 0 units SC .MODERATE SLIDING SC PRN PRN Reason: Moderate Correctional Scale Last Admin: 06/15/17 12:01 Dose: 2 unit Potassium Chloride (K-Dur) 40 meq PO TID [facility] Last Admin: 06/15/17 09:27 Dose: 40 meq Prednisone (Prednisone) 40 mg PO QAM-WM [facility] Stop: 06/17/17 08:01 Last Admin: 06/15/17 09:23 Dose: 40 mg Rosuvastatin Calcium (Crestor) 20 mg PO DAILY [facility] Last Admin: 06/15/17 09:22 Dose: 20 mg Sodium Chloride (Flush - Normal Saline) 10 ml IVF PRN PRN PRN Reason: Saline Flush Last Admin: 06/15/17 06:01 Dose: 10 ml Sucralfate (Carafate) 1 gm PO ACHS [facility] Last Admin: 06/15/17 12:01 Dose: 1 gm Ticagrelor (Brilinta) 90 mg PO BID [facility] Last Admin: 06/15/17 09:21 Dose: 90 mg
[2017-06-15] MEDS ORDERED: Furosemide 100 MG/10 ML VIAL SLOW IVP SCH (17:00)
--- NOTE | 2017-06-15 17:39 | PRG ---
DATE OF SERVICE: 06/15/2017 SUBJECTIVE: Patient was seen and examined at bedside and overnight events noted. Patient denies any shortness of breath or chest pain or palpitation. No history of nausea or vomiting or diarrhea or fever or chills or cramps. OBJECTIVE: General: This is an obese male in no apparent distress. Vital Signs: Temperature 96, pulse 60, respiratory rate 18, blood pressure 119/65. HEENT: Atraumatic, normocephalic, Oral mucosa is moist Neck: Supple Cardiovascular: S1, S2 heard, rate and rhythm regular. Respiratory: Clear to auscultation. Gastrointestinal: Abdomen is soft. Musculoskeletal : No tenderness, No edema. Dermatologic : No skin rash. Neurologic: Alert and awake and oriented x3, No focal neurologic deficits. Moving all the extremitie s. Psychiatric: Mood and affect normal LABORATORY DATA: Potassium is 3.1, BUN is 53, creatinine is 2.06. ASSESSMENT AND PLAN: 1. Acute kidney injury on chronic kidney disease stage 3. Renal function is stable from Nephrology standpoint. 2. Hypokalemia, replaced on potassium supplements. No edema. On Lasix. 3. Fluid overload. 4. Cardiorenal syndrome. 5. Anemia. 6. Hypertension. 7. Obesity. Plan is to continue on diuretics, to limit fluid and salt intake. We will replace potassium and we w ill follow.
[2017-06-15] MEDS: Ubidecarenone 50 MG CAP PO SCH (20:14)
--- NOTE | 2017-06-15 22:59 | PRG ---
DATE OF SERVICE: 06/15/2017 SERVICE: Pulmonary Medicine. INTERVAL HISTORY: The patient is doing really well from a cardiovascular and respiratory standpoint. He is breathing comfortably. He is down to 2 liters nasal cannula. Otherwise, there were no event s overnight. His breathing is much improved, though his lower extremity swelling has yet to make a p rofound improvement. He does have less swelling in his hips, and thighs, but he is upset about how m uch water there is in feet. PHYSICAL EXAMINATION: VITAL SIGNS: Afebrile. Pulse 112, blood pressure 129/59, respirations 16, saturation 93% on 3 liter s nasal cannula. GENERAL: Patient is awake, alert, in no apparent distress. LUNGS: Decreased air entry. There is no prolonged expiratory phase. Crackles are present HEART: Normal rate, regular. ABDOMEN: Soft, nontender, nondistended. Bowel sounds positive. MUSCULOSKELETAL: No cyanosis or clubbing. There is 2-3+ pitting in the bilateral lower extremities, which is now limited to his leg. LABORATORY DATA: WBC 15.3, hemoglobin 11.3, platelets 262,000. Basic metabolic profile includes a c reatinine of 2.06, which is stable if not down trending slightly. BUN 53 and stable, bicarbonate 37, which has bumped. Potassium 3.1. Basic metabolic profile, magnesium and phosphorus fall into unrem arkable ranges. Influenza A and B is unremarkable. Blood culture x2 is negative. ASSESSMENT: 1. Acute hypoxic respiratory failure. 2. Acute on chronic diastolic heart failure. 3. Chronic obstructive pulmonary disease with acute exacerbation. 4. Obstructive sleep apnea, severe. PLAN: We will continue to diurese the patient to euvolemia. He has developed a contraction alkalosi s. We will decrease his Lasix interval. Outside of this, supportive measures will be continued. [facility] will continue to follow up for the time being.
[2017-06-16 04:49] LABS: BUN (Urea Nitrogen) 50 mg/dL (8.4-25.7); Calc. Creatinine Clearance 66 mL/min (70-130); Calcium 10.4 mg/dL (7.8-10.44); Estimated GFR-MDRD 31; Glucose 218 mg/dL (83-110)
[2017-06-16 04:58] LABS: Anion Gap 17 mmol/L (10-20); Carbon Dioxide 35 mmol/L (23-31); Chloride 90 mmol/L (98-107); Sodium 139 mmol/L (136-145)
[2017-06-16] MEDS: Furosemide 100 MG/10 ML VIAL SLOW IVP SCH (05:57)
[2017-06-16] MEDS: predniSONE 20 MG TAB PO SCH (08:52)
[2017-06-16] MEDS: TICAGRELOR 90 MG TABLET PO SCH (08:53)
[2017-06-16] MEDS: Sucralfate 1 GM TAB PO SCH ×3 (08:53→16:35)
[2017-06-16] MEDS: FLUoxetine HCl 20 MG CAP PO SCH (08:53)
[2017-06-16] MEDS: Rosuvastatin 20 MG TAB PO SCH (08:53)
[2017-06-16] MEDS: Potassium Chloride 20 MEQ TAB PO SCH ×2 (08:54→14:04)
[2017-06-16] MEDS: Docusate 100 MG CAP PO SCH (08:54)
[2017-06-16] MEDS: Carvedilol 6.25 MG TAB PO SCH (08:54)
[2017-06-16] MEDS ORDERED: Amiodarone 200 MG TAB PO SCH (09:00)
[2017-06-16] MEDS: HumaLOG 300 UNITS/3 ML VIAL SC PRN ×2 (12:18→16:35)
[2017-06-16] MEDS ORDERED: Furosemide 40 MG/4 ML VIAL SLOW IVP SCH (12:45)
[2017-06-16 17:20] VITALS: BP 155/86; TEMP 98.6
--- NOTE | 2017-06-16 17:51 | PRG ---
DATE OF SERVICE: 06/16/2017 SERVICE: Pulmonary Medicine. INTERVAL HISTORY: The patient is doing really well from a cardiovascular and respiratory standpoint. He is breathing comfortably. His lower extremity swelling is much improved, although he still cont inues to have persistent lower extremity edema. He is very pleased with the progress that he has mad e to date. PHYSICAL EXAMINATION: VITAL SIGNS: Afebrile, pulse 66, blood pressure 171/89, respirations 18, saturation 95% on 1 liter n shivam cannula. GENERAL: The patient is awake, alert, no apparent distress. LUNGS: Decent air entry. Dependent crackles are minimal. There is prolonged expiratory phase, but I do not appreciate wheezing or rhonchi today. HEART: Normal rate, regular. ABDOMEN: Soft, nontender, nondistended. Bowel sounds positive. MUSCULOSKELETAL: No cyanosis or clubbing. No pitting in the bilateral lower extremities. NEUROLOGIC: Grossly nonfocal. LABORATORY DATA: Sodium 139, potassium 3.0. Bicarbonate 35 and roughly stable, it is now down trend ing to touch. BUN is 50 and stable. Creatinine 2.10 and stable. Basic metabolic profile is otherwi se unremarkable. Influenza A and B are negative. Blood cultures x2 are unremarkable. ASSESSMENT: 1. Acute hypoxic respiratory failure. 2. Acute on chronic diastolic heart failure. 3. Chronic obstructive pulmonary disease with acute exacerbation. 4. Obstructive sleep apnea, severe. PLAN: From my perspective, the patient is stable for transition out of the hospital. We will contin ue replacing his potassium. If he remains inhouse, I will follow. Otherwise, he will return to clin ic to see me as previously directed.
--- NOTE | 2017-06-16 18:34 | PRG ---
DATE OF SERVICE: 06/16/2017 SUBJECTIVE: Patient was seen and examined at bedside and overnight events noted. Patient denies any shortness of breath or chest pain or palpitation. No history of nausea or vomiting or diarrhea or f ever or chills or cramps. OBJECTIVE: GENERAL: This is a morbidly obese male in no apparent distress. VITAL SIGNS: Temperature 98.5, pulse 62, respiratory rate 18, blood pressure 171/89. HEENT: Atraumatic, normocephalic. Oral mucosa is moist. NECK: Supple. CARDIOVASCULAR: S1, S2 heard. Rate and rhythm regular. RESPIRATORY: Clear to auscultation. GASTROINTESTINAL: Abdomen is soft. MUSCULOSKELETAL: 1+ edema. DERMATOLOGIC: No skin rash. NEUROLOGIC: Alert and awake and oriented x3. No focal neurologic deficits. Moving all the extremit ies. PSYCHIATRIC: Mood and affect normal. LABORATORY DATA: Potassium is 3.7, BUN is 50, creatinine is 2.1. ASSESSMENT AND PLAN: 1. Acute kidney injury on chronic kidney disease stage III. Renal function is stable. 2. Cardiorenal syndrome with edema and fluid overload, much better. 3. Hypokalemia. Replace potassium, supplements and agree with starting losartan as outpatient. 4. Hypertension. 5. Obesity. Overall, stable renal function. We will continue to follow.
--- NOTE | 2017-06-16 22:39 | DIS ---
PRIMARY CARE PHYSICIAN: Dr. Anselmo Reese DATE OF ADMISSION: 06/11/2017 DATE OF DISCHARGE: 06/16/2017 DISCHARGE DIAGNOSES: 1. Acute respiratory failure with hypoxia. 2. Chronic obstructive pulmonary disease exacerbation. 3. Acute congestive heart failure exacerbation. CONSULTATIONS DURING THIS HOSPITALIZATION: Cardiology, Dr. Farmer; pulmonology, Dr. Luca Patel; and nephrology, Dr. Roque. CONDITION OF PATIENT ON THE DAY OF DISCHARGE: Stable. I assessed Mr. Ej Mcgill on the day of discharge. He denies any chest pain or shortness of breath. Vital signs are stable. S1 and S2 are heard, regular. Lungs are clear to auscultation bilaterally. DISCHARGE MEDICATIONS: His Coreg dose was decreased to 6.25 mg 2 times a day. He will also receive a prescription for prednisone 40 mg for 1 more day. Otherwise, his medications are unchanged from the list dictated on the history and physical note from 06/11/2017. HOSPITAL COURSE: Mr. Ej Mcgill is a pleasant 77-year-old gentleman who was admitted to [facility] on 06/11/2017 for acute respiratory failure secondary to chronic obstructive pulmonary disease exacerbation and congestive heart failure exacerbation. He was treated with BiPAP in the IMCU setting. He was seen by Pulmonology and Cardiology services. He was aggressively diuresed. He continued to improve clinically. He is being discharged home in a stable condition. He was also seen by Nephrology service. On the day of discharge, his sodium of 139, potassium 3.0, which is being replaced, blood urea nitrogen 50, creatinine 2.10. On 06/14/2017, he had white count of 15,300, hemoglobin 11.3, and platelet count 262,000. His BNP level during this admission was 147.6. His valsartan was on hold during this admission, it is being resumed at the time of discharge. Nephrology service wants him to have his basic metabolic profile checked within a week. Pt is not on anticoagulation for atrial fibrillation because of the contraindication of frequent falls. Many thanks for allowing me to participate in your patient's care. Please feel free to contact me with any questions or concerns. DISCHARGE DESTINATION: Home. TOTAL AMOUNT OF TIME SPENT COORDINATING THIS DISCHARGE: 34 minutes. PERCY
--- NOTE | 2017-07-02 15:15 | EKG ---
Test Reason : Blood Pressure : / mmHG Vent. Rate : 065 BPM Atrial Rate : 065 BPM P-R Int : 260 ms QRS Dur : 088 ms QT Int : 400 ms P-R-T Axes : 074 037 039 degrees QTc Int : 416 ms Sinus rhythm with 1st degree A-V block with Fusion complexes Low voltage QRS Cannot rule out Anterior infarct , age undetermined Abnormal ECG Confirmed by MONIKA URENA, HARRISON ([id number]), editor city JYOTI LOCKWOOD ([id number]) on 07/02/2017 3:14:23 PM Referred By: Confirmed By:HARRISON FRANK MD
== END 2017-06-16 17:58 | disposition home or self-care (01) | DRG 291 ==
LOC: ERS 21:30 → ERHOLD 23:10 → IMCU/EMU 06-12 02:25 → T4-A 06-12 21:47
PROVIDERS: ADMIT Internal Medicine; ATTEND Internal Medicine
PROC: 5A09457 Assistance with Respiratory Ventilation, 24-96 Consecutive Hours, Continuous Positive Airway Pressure (ICD-10-PCS; principal; 2017-06-11)
DX: I13.0 Hypertensive heart and chronic kidney disease with heart failure and stage 1 through stage 4 chronic kidney disease, or unspecified chronic kidney disease (principal); J96.01 Acute respiratory failure with hypoxia; N17.9 Acute kidney failure, unspecified; I27.20 Pulmonary hypertension, unspecified; E66.01 Morbid (severe) obesity due to excess calories; E11.22 Type 2 diabetes mellitus with diabetic chronic kidney disease; I50.33 Acute on chronic diastolic (congestive) heart failure; J44.1 Chronic obstructive pulmonary disease with (acute) exacerbation; Z68.41 Body mass index [BMI] 40.0-44.9, adult; I16.9 Hypertensive crisis, unspecified; E88.09 Other disorders of plasma-protein metabolism, not elsewhere classified; I48.0 Paroxysmal atrial fibrillation; G47.33 Obstructive sleep apnea (adult) (pediatric); M06.9 Rheumatoid arthritis, unspecified; L40.9 Psoriasis, unspecified; F32.9 Major depressive disorder, single episode, unspecified; Z87.891 Personal history of nicotine dependence; Z79.84 Long term (current) use of oral hypoglycemic drugs; Z79.82 Long term (current) use of aspirin; I25.10 Atherosclerotic heart disease of native coronary artery without angina pectoris; N18.3 Chronic kidney disease, stage 3 (moderate); E87.6 Hypokalemia; D64.9 Anemia, unspecified; Z95.5 Presence of coronary angioplasty implant and graft; E78.5 Hyperlipidemia, unspecified; I44.30 Unspecified atrioventricular block
CPT/HCPCS: 36415; 36416; 71045; 80048; 80053; 80069; 81003; 82550; 82553; 82805; 83605; 83690; 83735; 83880; 84484; 85025; 85610; 85730; 87040; 87804; 93005; 93306; 93798; 94640; 94660; 96365; 96366; 96375; J1100; J1940; J1956; J7506; J7620

== ENCOUNTER 2017-06-22 08:41 | Inpatient (IN) | payer MEDICARE ==
[2017-06-22 10:02] LABS: #Eosinphils 0.2 thou/uL (0.0-0.7); #Lymphocytes 1.6 thou/uL (1.20-3.40); #Monocytes 1.2 thou/uL (0.11-0.59); #Neutrophils 6.4 thou/uL (1.40-6.50); %Basophils 0.2 % (0.0-1.0); %Eosinophils 1.6 % (0.0-10.0); %Lymphocytes 16.9 % (21.0-51.0); %Monocytes 13.2 % (0.0-10.0); %Neutrophils 68.1 % (42.0-75.0); Hemoglobin 12.8 g/dL (14.0-18.0); Mean Corpuscular Hemoglobin 27.4 pg (27.0-31.0); Mean Corpuscular Volume 85.5 fl (80.0-94.0); Mean Platelet Volume 7.5 fL (7.4-10.4); Platelet Count 215 thou/uL (130-400); RBC Distribution Width 15.7 % (11.5-14.5); White Blood Cell (WBC) Count 9.4 thou/uL (4.8-10.8)
[2017-06-22] MEDS ORDERED: Furosemide 40 MG/4 ML VIAL ONE (10:10)
[2017-06-22 10:23] LABS: ALT (SGPT) 384 U/L (8-55); AST (SGOT) 333 U/L (5-34); Alkaline Phosphatase 80 U/L (40-150); Anion Gap 17 mmol/L (10-20); BUN (Urea Nitrogen) 39 mg/dL (8.4-25.7); Bilirubin, Total 0.8 mg/dL (0.2-1.2); Calc. Creatinine Clearance 0 mL/min (70-130); Calcium 9.5 mg/dL (7.8-10.44); Carbon Dioxide 29 mmol/L (23-31); Chloride 98 mmol/L (98-107); Estimated GFR-MDRD 37; Globulin 3.1 g/dL (2.4-3.5); Glucose 139 mg/dL (83-110); Potassium 3.7 mmol/L (3.5-5.1); Protein, Total 7.1 g/dL (5.8-8.1); Sodium 140 mmol/L (136-145)
[2017-06-22 10:30] LABS: CKMB 3.6 ng/mL (0-6.6); Troponin I 0.048 ng/mL (< 0.028)
[2017-06-22] MEDS ORDERED: methylPREDNISolone Sod Succ/PF 125 MG/2 ML VIAL ONE (10:53)
--- NOTE | 2017-06-22 11:40 | RAD ---
CHEST ONE VIEW: History: Dyspnea. Comparison: 06-11-17 FINDINGS: Cardiac silhouette is magnified by projection. Lungs remain hyperinflated. Pulmonary vasculature is u pper limits of normal. Mediastinum is midline. There is no lobar consolidation or evidence of pneumot horax. IMPRESSION: COPD and other chronic type findings are stable. POS: [facility]
[2017-06-22] MEDS ORDERED: Bisacodyl 5 MG TAB PO PRN (13:18)
[2017-06-22 13:32] LABS: Troponin I 0.053 ng/mL (< 0.028)
[2017-06-22] MEDS ORDERED: Proctozone-HC 2.5% Cream 30 GM TUBE TOP PRN (14:41)
--- NOTE | 2017-06-22 14:53 | HP ---
PRIMARY CARE PHYSICIAN: Dr. Anselmo Reese. CHIEF COMPLAINT: Shortness of breath. HISTORY OF PRESENT ILLNESS: Mr. Ej Ovalles is a pleasant 77-year-old gentleman, who was seen at [facility] on 06/22/2017. He was hospitalized at this facility from 06/11/2017 t o 06/16/2017 for acute respiratory failure with hypoxia secondary to chronic obstructive pulmonary di sease exacerbation and congestive heart failure exacerbation. He reports that he was initially doing well at home. Over the last 4 days, he has had progressively worsening shortness of breath. He also reports worsening lower extremity edema. He is having to sle ep upright, because of orthopnea. He also reports cough that is productive of whitish sputum. He de nies any fevers or chills. He denies any chest pain. He is taking torsemide 20 mg daily. He was supposed to see his PCP today morning, but came to the em ergency room, because of ongoing shortness of breath. REVIEW OF SYSTEMS: The following complete review of systems was negative, unless otherwise mentioned in the HPI or below: Constitutional: Weight loss or gain, ability to conduct usual activities. Sk in: Rash, itching. Eyes: Double vision, pain. ENT/Mouth: Nose bleeding, neck stiffness, pain, te nderness. Cardiovascular: Palpitations, dyspnea on exertion, orthopnea. Respiratory: Shortness of breath, wheezing, cough, hemoptysis, fever or night sweats. Gastrointestinal: Poor appetite, abdom inal pain, heartburn, nausea, vomiting, constipation, or diarrhea. Genitourinary: Urgency, frequenc y, dysuria, nocturia. Musculoskeletal: Pain, swelling. Neurologic/Psychiatric: Anxiety, depressio n. Allergy/Immunologic: Skin rash, bleeding tendency. PAST MEDICAL HISTORY: Significant for chronic obstructive pulmonary disease, hypertension, congestiv e heart failure with diastolic dysfunction, paroxysmal atrial fibrillation, obstructive sleep apnea s yndrome, morbid obesity, pulmonary hypertension, rheumatoid arthritis, psoriasis, and depression. Th e patient has known history of multivessel coronary artery disease and is prohibitive risk for surger y due to severe lung disease. PAST SURGICAL HISTORY: Significant for cholecystectomy and multiple back surgeries. SOCIAL HISTORY: The patient is an ex-smoker. He does not use alcohol or drugs. He lives with his w yelena. FAMILY HISTORY: No history of lung disease or vascular disease. CODE STATUS: I discussed his code status. He is FULL CODE. ALLERGIES: No known drug allergies. CURRENT MEDICATIONS: Include carvedilol 6.25 mg 2 times a day, prednisone 40 mg 2 times a day, fluox etine 20 mg 3 times a day, glyburide 5 mg daily, aspirin 81 mg daily, valsartan 320 mg daily, Coenzym e Q10 100 mg daily, Ventolin p.r.n., levocetirizine 5 mg daily, potassium chloride 30 mEq daily, Bril inta 90 mg 2 times a day, Crestor 20 mg daily, metolazone 5 mg daily, amiodarone 200 mg 2 times a day , Otezla 30 mg 2 times a day, budesonide inhaler once daily, vitamin D2 2000 units daily, Breo Ellipt a 1 puff daily, MiraLax 17 grams daily, torsemide 100 mg 2 times a day, glipizide 5 mg daily, clobeta natalie topically 2 times a day. PHYSICAL EXAMINATION: GENERAL: Mr. Ej Ovalles is awake and alert, in moderate respiratory distress. VITAL SIGNS: Blood pressure is 132/60, pulse is 70, he is breathing at rate of 18, and saturating 99 % on room air. He is afebrile. He is morbidly obese. EYES: No scleral icterus. No conjunctival pallor. ENT: Moist mucosal membranes, no oropharyngeal erythema or exudates. NECK: I could not assess jugular veins. Trachea is midline. No thyromegaly. RESPIRATORY: Accessory muscles of breathing are active. Chest wall movements are symmetric bilatera lly. Lung examination reveals a few bibasilar crackles. He has expiratory wheezes in the upper lung zones. CARDIOVASCULAR: S1 and S2 are heard, regular. I could not palpate his dorsalis pedis secondary to e christian. Upper extremity pulses are palpable. No pericardial rub, no carotid bruit. ABDOMEN: Distended, nontender, bowel sounds are heard. SKIN: He has bilateral lower extremity stasis dermatitis. He also has bilateral lower extremity yuri ma. NEUROLOGIC: Cranial nerves II-XII are intact. Deep tendon reflexes are 2+. MUSCULOSKELETAL: Power is 5/5 in all 4 extremities. LYMPHATIC: No cervical lymphadenopathy. PSYCHIATRIC: Normal mood, normal affect, patient is oriented to person, place, and time. LABORATORY DATA: Mr. Ej Ovalles's labs and investigations were reviewed. I reviewed his electrocar diogram, which appears to show accelerated junctional rhythm, no ST changes to suggest an acute coron jacky syndrome. I also reviewed his chest x-ray, which does not show any pulmonary infiltrates. He ap pears to have mild pulmonary venous congestion. Laboratory investigation showed normal white count, normocytic anemia with hemoglobin of 12.8, normal platelet count, normal electrolytes, elevated blood urea nitrogen of 39, elevated creatinine of 1.80 , last known creatinine 2.10 on 06/16/2017, normal total bilirubin, normal alkaline phosphatase, elev ated AST of 333, elevated ALT of 384, indeterminate troponin I of 0.053, normal BNP of 77, and normal albumin. ASSESSMENT AND PLAN: Mr. Ej Ovalles is a pleasant 77-year-old gentleman, who was seen at [facility] on 06/22/2017. His problem list includes: 1. Acute respiratory failure: Mr. Ej Ovalles is presenting with acute respiratory failure. This i s most likely secondary to a congestive heart failure exacerbation and chronic obstructive pulmonary disease exacerbation. He will be admitted to the hospital for further management. 2. Congestive heart failure exacerbation. Mr. Ej Ovalles has a normal BNP. Chest x-ray is not satish y impressive in terms of pulmonary edema. However, his clinical presentation is strongly suggestive of congestive heart failure exacerbation. He is known to have diastolic dysfunction. We will contin ue him on diuretics intravenously and request Cardiology Service for opinion. 3. Chronic obstructive pulmonary disease exacerbation. His presentation also has some components of chronic obstructive pulmonary disease exacerbation. He will be treated with bronchodilators and floyd roids. I am not starting him on antibiotics at this time. 4. Hypertension. Monitor vital signs, titrate antihypertensives as needed. 5. Transaminitis: Isolated transaminitis. We will check CK to rule out rhabdomyolysis. We will al so trend LFTs if CK is normal. The isolated transaminitis could be secondary to hepatic congestion f rom congestive heart failure as well. 6. Chronic kidney disease: Stable. 7. Indeterminate troponin, likely due to congestive heart failure exacerbation. Mr. Pagan is know n to have multivessel coronary artery disease that is not amenable to surgery, because of comorbiditi es. 8. Obstructive sleep apnea syndrome. Patient to use his CPAP when he is asleep. Many thanks for allowing me to participate in your patient's care. Please feel free to contact me wi th any questions or concerns. LEVEL OF RISK: High. LEVEL OF COMPLEXITY: High.
[2017-06-22 17:07] LABS: Troponin I 0.047 ng/mL (< 0.028)
[2017-06-22] MEDS: FLUoxetine HCl 20 MG CAP PO SCH ×2 (19:05→22:45)
[2017-06-22] MEDS: Furosemide 40 MG/4 ML VIAL SLOW IVP SCH (19:13)
[2017-06-22] MEDS: Mometasone/Formoterol 120 PUFF INHALER INH SCH (20:39)
[2017-06-22] MEDS: Ubidecarenone 50 MG CAP PO SCH (22:44)
[2017-06-22] MEDS: Carvedilol 6.25 MG TAB PO SCH (22:45)
[2017-06-22] MEDS: Loratadine 10 MG TAB PO SCH (22:45)
[2017-06-22] MEDS: TICAGRELOR 90 MG TABLET PO SCH (22:45)
[2017-06-22] MEDS: Amiodarone 200 MG TAB PO SCH (22:45)
[2017-06-22] MEDS: Rosuvastatin 20 MG TAB PO SCH (22:45)
[2017-06-23 04:12] LABS: Base Excess-Venous 8.4 mmol/L (-30.0-30.0); Bicarbonate (HCO3v) 34.2 mmol/L (1.0-85.0); Calcium, Ionized 0.99 mmol/L (1.12-1.32); Hemoglobin - Calc 13.9 g/dL (12.0-18.0); O2 Tension (PvO2) 39.8 mmHg (35.0-45.0); Potassium 3.6 mmol/L (3.4-4.7); T. Carbon Dioxide 35.8 mmol/L (1.0-85.0); pH (Venous) 7.435 (7.35-7.45); vO2 Saturation-calc 75.3 % (0.0-100.0)
[2017-06-23] MEDS: Furosemide 40 MG/4 ML VIAL SLOW IVP SCH ×2 (05:36→15:44)
[2017-06-23 05:46] LABS: #Eosinphils 0.1 thou/uL (0.0-0.7); #Lymphocytes 1.7 thou/uL (1.20-3.40); #Monocytes 1.2 thou/uL (0.11-0.59); #Neutrophils 6.5 thou/uL (1.40-6.50); %Basophils 0.1 % (0.0-1.0); %Eosinophils 0.9 % (0.0-10.0); %Lymphocytes 17.7 % (21.0-51.0); %Monocytes 12.2 % (0.0-10.0); Mean Corpuscular HGB CONC 31.5 g/dL (32.0-36.0); Mean Corpuscular Hemoglobin 26.7 pg (27.0-31.0); Mean Corpuscular Volume 84.7 fl (80.0-94.0); Mean Platelet Volume 7.7 fL (7.4-10.4); Platelet Count 221 thou/uL (130-400); RBC Distribution Width 15.4 % (11.5-14.5); Red Blood Cell (RBC) Count 4.49 mill/uL (4.70-6.10); White Blood Cell (WBC) Count 9.4 thou/uL (4.8-10.8)
[2017-06-23 06:04] LABS: Anion Gap 15 mmol/L (10-20); BUN (Urea Nitrogen) 47 mg/dL (8.4-25.7); Calc. Creatinine Clearance 76 mL/min (70-130); Calcium 9.3 mg/dL (7.8-10.44); Carbon Dioxide 33 mmol/L (23-31); Chloride 96 mmol/L (98-107); Estimated GFR-MDRD 38; Glucose 180 mg/dL (83-110); Potassium 3.5 mmol/L (3.5-5.1); Sodium 140 mmol/L (136-145)
[2017-06-23] MEDS ORDERED: predniSONE 20 MG TAB PO SCH (08:00)
[2017-06-23] MEDS: glipiZIDE 5 MG TAB PO SCH (09:30)
[2017-06-23] MEDS: Prenatal Vitamin 1 TAB PO SCH (09:30)
[2017-06-23] MEDS: TICAGRELOR 90 MG TABLET PO SCH ×2 (09:30→21:41)
[2017-06-23] MEDS: Valsartan 80 MG TAB PO SCH (09:30)
[2017-06-23] MEDS: glyBURIDE 5 MG TAB PO SCH (09:30)
[2017-06-23] MEDS: Amiodarone 200 MG TAB PO SCH ×2 (09:30→21:41)
[2017-06-23] MEDS: Carvedilol 6.25 MG TAB PO SCH ×2 (09:31→21:41)
[2017-06-23] MEDS: FLUoxetine HCl 20 MG CAP PO SCH ×3 (09:31→21:41)
[2017-06-23] MEDS: Polyethylene Glycol 3350 17 GM Packet PO SCH (09:36)
[2017-06-23] MEDS: Mometasone/Formoterol 120 PUFF INHALER INH SCH (09:43)
[2017-06-23] MEDS ORDERED: Furosemide 100 MG/10 ML VIAL SLOW IVP SCH (12:30)
--- NOTE | 2017-06-23 12:46 | PDOC.PN ---
- Subjective Encounter Start Date: 06/23/17 Encounter Start Time: 07:40 Pt seen for followup re; acute respiratory failure. Reports SOBOE. No chest pain. Cough+. No fevers. Wheezing+ - Objective Resuscitation Status: Resuscitation Status FULL:Full Resuscitation MAR Reviewed: Yes Vital Signs & Weight: Vital Signs (12 hours) Temp Pulse Resp BP BP Pulse Ox 06/23/17 09:44 120 H 24 H 06/23/17 09:43 120 H 24 H 06/23/17 09:31 146/65 H 06/23/17 06:19 91 L 06/23/17 06:16 70 20 91 L 06/23/17 04:00 97.6 F 61 20 162/74 H 93 L 06/23/17 03:47 95 06/23/17 01:03 79 18 945 H Weight Weight 327 lb I&O: 06/22/17 06/23/17 06/24/17 06:59 06:59 06:59 Intake Total 500 Output Total 550 Balance -50 Result Diagrams: 06/23/17 04:47 06/23/17 04:47 Additional Labs: Accuchecks 06/22/17 20:28 POC Glucose 212 H EKG Reviewed by me: Yes (Tele: NSR) Phys Exam - Physical Examination Morbid obesity HEENT: PERRLA, moist MMs, sclera anicteric, oral pharynx no lesions Neck: no nodes, supple, full ROM Unable to assess JVD Respiratory: no rhonchi, wheezing present Cardiovascular: RRR, no rub Gastrointestinal: soft, non-tender, positive bowel sounds distention+ Musculoskeletal: pulses present Neurological: moves all 4 limbs Psychiatric: A&O x 3 Deviation from normal: anxious Dx/Plan (1) Acute and chronic respiratory failure Code(s): J96.20 - ACUTE AND CHR RESP FAILURE, UNSP W HYPOXIA OR HYPERCAPNIA Status: Acute (2) CHF exacerbation Code(s): I50.9 - HEART FAILURE, UNSPECIFIED Status: Acute (3) COPD exacerbation Code(s): J44.1 - CHRONIC OBSTRUCTIVE PULMONARY DISEASE W (ACUTE) EXACERBATION Status: Acute (4) CKD (chronic kidney disease) Code(s): N18.9 - CHRONIC KIDNEY DISEASE, UNSPECIFIED Status: Chronic (5) Multi-vessel coronary artery stenosis Code(s): I25.10 - ATHSCL HEART DISEASE OF [place] CORONARY ARTERY W/O ANG PCTRS Status: Acute (6) DM type 2 (diabetes mellitus, type 2) Status: Chronic (7) Dyslipidemia Code(s): E78.5 - HYPERLIPIDEMIA, UNSPECIFIED Status: Chronic (8) Paroxysmal atrial fibrillation Code(s): I48.0 - PAROXYSMAL ATRIAL FIBRILLATION Status: Chronic Comment: on xarelto (9) Sleep apnea, obstructive Code(s): G47.33 - OBSTRUCTIVE SLEEP APNEA (ADULT) (PEDIATRIC) Status: Chronic - Plan PT/OT, out of bed/ambulate * . Continue oxygen, steroids, bronchodilators, diuretics. Accuchecks, insulin sliding scale. Monitor vital signs, titrate antihypertensives as needed. CKD stable. Review of Systems - Review of Systems Constitutional: negative: fever, chills, sweats, weakness, malaise Respiratory: Cough, Dry, Shortness of Breath, SOB with Excertion, Wheezing. negative: Hemoptysis, Pleuritic Pain, Sputum Cardiovascular: negative: chest pain, palpitations, orthopnea, paroxysmal nocturnal dyspnea, edema, light headedness Gastrointestinal: negative: Nausea, Vomiting, Abdominal Pain, Diarrhea, Constipation, Melena, Hematochezia Genitourinary: negative: Dysuria, Frequency, Incontinence, Hematuria, Retention Musculoskeletal: negative: Neck Pain, Shoulder Pain, Arm Pain, Back Pain, Hand Pain, Leg Pain, Foot Pain - Medications/Allergies Allergies/Adverse Reactions: Allergies Allergy/AdvReac Type Severity Reaction Status Date / Time No Known Allergies Allergy Verified 07/22/16 02:17 Medications: Current Medications Albuterol/Ipratropium (Duoneb) 3 ml NEB [id number] [facility] Last Admin: 06/23/17 06:16 Dose: 3 ml Albuterol/Ipratropium (Duoneb) 3 ml NEB [id number] PRN PRN Reason: SOB &/or Wheezing Last Admin: 06/23/17 09:44 Dose: 3 ml Amiodarone HCl (Cordarone) 200 mg PO BID [facility] Last Admin: 06/23/17 09:30 Dose: 200 mg Aspirin (Aspirin Chewable) 81 mg PO MoWeFr@0900 [facility] Bisacodyl (Dulcolax) 10 mg PO DAILYPRN PRN PRN Reason: Constipation Carvedilol (Coreg) 6.25 mg PO BID [facility] Last Admin: 06/23/17 09:31 Dose: 6.25 mg Cholecalciferol (Vitamin D3) 2,000 units PO DAILY [facility] Last Admin: 06/23/17 09:30 Dose: 2,000 units Coenzyme Q10 (Coenzyme Q10) 100 mg PO HS [facility] Last Admin: 06/22/17 22:44 Dose: 100 mg Fluoxetine HCl (Prozac) 20 mg PO TID [facility] Last Admin: 06/23/17 09:31 Dose: 20 mg Furosemide (Lasix) 40 mg SLOW IVP 0600,1400 [facility] Last Admin: 06/23/17 05:36 Dose: 40 mg Furosemide (Lasix) 80 mg SLOW IVP NOW [facility] Stop: 06/23/17 14:30 Glipizide (Glucotrol) 5 mg PO DAILY [facility] Last Admin: 06/23/17 09:30 Dose: 5 mg Glyburide (Diabeta) 5 mg PO DAILY [facility] Last Admin: 06/23/17 09:30 Dose: 5 mg Hydrocortisone Sodium Succinate (Proctozone-Hc 2.5% Cream) 1 gm TOP BID PRN PRN Reason: Hemorrhoids Loratadine (Claritin) 10 mg PO [facility] Last Admin: 06/22/17 22:45 Dose: 10 mg Mometasone Furoate/Formoterol Fumar (Dulera 100 Mcg/5 Mcg Inhaler) 2 puff INH BID-RT [facility] Last Admin: 06/23/17 09:43 Dose: 2 puff (Apremilast [Otezla] (30 Mg)) 30 mg PO BID [facility] Polyethylene Glycol (Miralax) 17 gm PO DAILY [facility] Last Admin: 06/23/17 09:36 Dose: 17 gm Prednisone (Prednisone) 40 mg PO QAM-WM [facility] Last Admin: 06/23/17 09:30 Dose: 40 mg Multivit/Folic Acid/Iron ( Vitamin) 1 tab PO DAILY [facility] Last Admin: 06/23/17 09:30 Dose: 1 tab Rosuvastatin Calcium (Crestor) 20 mg PO HS [facility] Last Admin: 06/22/17 22:45 Dose: 20 mg Ticagrelor (Brilinta) 90 mg PO BID [facility] Last Admin: 06/23/17 09:30 Dose: 90 mg Valsartan (Diovan) 320 mg PO DAILY [facility] Last Admin: 06/23/17 09:30 Dose: 320 mg
[2017-06-23] MEDS ORDERED: Dextrose 5% in Water 1,000 ML IV PRN (13:19)
[2017-06-23] MEDS ORDERED: Dextrose 50% Abboject 50 ML SYRINGE SLOW IVP PRN (13:19)
--- NOTE | 2017-06-23 15:02 | CON ---
DATE OF CONSULTATION: 06/23/2017 INDICATION FOR CONSULTATION: A 77-year-old gentleman we were asked to see for new onset congestive h eart failure. HISTORY OF PRESENT ILLNESS: This very unfortunate 77-year-old gentleman has had a long history of co ronary artery disease. He originally was seen several years ago by Dr. Cleary for some congestive heart failure type symptoms and was diagnosed even at that time, I believe, with some COPD, did not h ave any coronary disease documentation until just recently. He has actually had some atrial fibrilla tion ablations I think twice in [place] by Dr. Gruber. He has been doing relatively well from that, b ut his says he still continues to have occasional episodes of some type of arrhythmias, but appa rently is still stable at this time. His EKG does not show any atrial fibrillation at this time. He appears to be in sinus rhythm. He also in 2017, underwent angioplasty and stent placement on 2-3 di fferent occasions with angioplasty and stent placement to the mid left anterior descending artery. Angela phillips also had stent placement to the left circumflex and second obtuse marginal branch extending to the circumflex and to the obtuse marginal branch and then on another cardiac catheterization underwent an gioplasty and stent placement to the mid right coronary also distally the right coronary artery. Eje ction fraction has always been at least 50%. He does have evidence of right-sided heart failure with some lower extremity edema, shortness of breath. He had been doing relatively well, but has been lira ving problems with shortness of breath and he has been actually been falling. EMT brought him to the hospital after he was complaining of increasing shortness of breath, unable to breathe and was broug ht into the hospital and was found to have possibly some type of bronchitis, respiratory problems wit h significant wheezing. He denied any chest pain. EKG does not show any acute changes. Cardiac enz ymes are unremarkable. His cardiac enzymes were indeterminate and did not appear to be significantly elevated. At this time, he still continues to deny any chest pain and chest x-ray does not show any evidence of left heart failure. He may have some right heart failure. He does have some abnormal l diego findings in the right side, but he will be followed by Dr. Patel with Pulmonology. He has been having some slight improvement in his overall symptoms when he has been given nebulizer treatments. At this time from a cardiac standpoint, I do not see that he has any new failure. This is old diast olic heart failure with this gentleman and most likely exacerbation due to his COPD exacerbation. PAST MEDICAL HISTORY: Significant for diabetes, hypercholesterolemia, hypertension, COPD, coronary a rtery disease. He has had morbid obesity. He has had a cholecystectomy, multiple back surgeries. Angela phillips has had a history of paroxysmal atrial fibrillation. He has sleep apnea, pulmonary hypertension. He has a history of rheumatoid arthritis, psoriasis and depression as well as his coronary artery dis ease which is noted above. SOCIAL HISTORY: He smoked in the past, but has not smoked for the last at least 10-15 years. He den ies any alcohol use. He does use smokeless tobacco. FAMILY HISTORY: Noncontributory. ALLERGIES: None. MEDICATIONS: Please refer to the list of medications, but it appears that he is on Coreg, which he s eems to be tolerating. He has been on steroids at home, fluoxetine, glyburide, aspirin, valsartan, C oenzyme Q10, Ventolin nebulizer treatments, levocetirizine, potassium, Brilinta, Crestor, metolazone, amiodarone, Otezla, budesonide, vitamins, Breo Ellipta, MiraLax, torsemide, glipizide and topical oi ntment with clobetasol. REVIEW OF SYSTEMS: He denies any new HEENT complaints. PULMONARY: He has been coming more short of breath. He denied any chest pain. GI: He did have some occasional episode of nausea. He has had no significant diarrhea. He does hav e occasional episodes, but nothing chronic. : He had no complaints. He does see apparently see a telecommunications operator as he does have chronic kid jase disease and this seems to have been worsened by the cardiac catheterization in the past, but see ms to have recovered. NEURO: He denied any new neurologic complaints. EXTREMITIES: He does complain of some lower extremity edema and the left leg has become more edemato us and recently he has had to actually has had improvement in the swelling of the left lower extremit y, but this is again now more edematous. He denied any syncope. He has had some falls; however, but otherwise no neurological complaints. PHYSICAL EXAMINATION: GENERAL: Reveals a morbidly obese gentleman who appears to be in some mild distress due to his diffi culty with breathing. He still has significant wheezing during the examination. VITAL SIGNS: Blood pressure of 146/65, heart rate is anywhere between 70-120, respiratory rate 24, O 2 saturations of 91%. He is on 2-3 liters of oxygen. HEENT: Shows the head to be normocephalic and atraumatic. Carotid pulses are difficult to auscultat e, but the pulses are present. I did not hear any significant bruits. CHEST: His chest has diffuse expiratory wheezing throughout with rales bilaterally from the proximal area to distal from apical to the base of his lungs. CARDIOVASCULAR: Exam again somewhat difficult to auscultate due to lack of noise from the pulmonary status, but it appears to be regular at this time, I do not hear any gross murmurs, heaves, thrills o r bruits. ABDOMEN: I cannot palpate any tenderness, but the patient has morbid obesity. Positive bowel sounds are present. EXTREMITIES: Showed no clubbing or cyanosis. He does have 2-3+ lower extremity edema on the left si de and has 1+ lower extremity edema on the right side. I could not palpate pedal pulses or popliteal pulses, nor could I palpate femoral pulses, but again this is due to morbid obesity and large pannus unable to palpate the femoral pulses. NEUROLOGIC: The patient appears to be intact. SKIN: At this time, his skin is warm and dry. NEUROLOGIC: Otherwise, he appears to be intact. He did not get out of bed for further evaluation. IMPRESSION: 1. Chronic obstructive pulmonary disease exacerbation with right-sided failure and diastolic dysfunc tion in this elderly gentleman who has morbid obesity. I would continue his nebulizer treatments and antibiotics for bronchitis, most likely. 2. Most likely his right-sided failure which is due to his chronic obstructive pulmonary disease. W e will continue the diuretics, but would be careful not to over diurese the patient due to the diasto lic dysfunction. 3. Morbid obesity. He has been trying to lose weight apparently, but this has been unsuccessful edmundo s far. This is obviously a very difficult situation in this patient who is unable to exercise due to his pulmonary status. 4. History of diabetes. This will be dealt with by the primary care service. 5. Chronic kidney disease. We will need to watch this very carefully monitor this with the use of d iuretics. 6. History of hyperlipidemia. He will continue his present medications. At this time there is no further cardiac workup or intervention that I would anticipate. I would con tinue to monitor him and carefully control his pulmonary status. The is very concerned and woul d prefer that the patient go to rehab to see if he can get some benefit from some type of pulmonary r ehab. I will be more than happy to continue to follow the patient with you. He was seen by Dr. Tamia hopkins on his last admission and will defer further treatment and decisions to Dr. Farmer when he see s the patient tomorrow.
[2017-06-23] MEDS: Ubidecarenone 50 MG CAP PO SCH (21:41)
[2017-06-23] MEDS: Rosuvastatin 20 MG TAB PO SCH (21:41)
[2017-06-23] MEDS: Loratadine 10 MG TAB PO SCH (21:41)
--- NOTE | 2017-06-23 23:43 | CON ---
DATE OF SERVICE: 06/23/2017 SERVICE: Pulmonary medicine. REASON FOR CONSULTATION: Respiratory failure. HISTORY OF PRESENT ILLNESS: The patient is a 77-year-old white male with past medical history signif icant for obstructive sleep apnea and chronic obstructive pulmonary disease. He was recently in the hospital for acute on chronic diastolic heart failure. He was diuresed very nicely and actually retu rned to his usual state of health. After he left the hospital, he did fantastic for 1 day, but then over the last 3 days, had an increasing cough with congestion with purulent sputum production. He cu rrently denies any nausea, vomiting, or diarrhea. He is having increasing work of breathing. He has increasing dyspnea that prevents him from doing basically anything that he needs to. He has not bee n able to sleep because of his difficulty with breathing. Abdominal distention is getting worse. Ot herwise, there has been no interval change to his condition. PAST MEDICAL HISTORY: 1. COPD. 2. Chronic diastolic heart failure. 3. Hypertension. 4. Dyslipidemia. 5. Paroxysmal atrial fibrillation. 6. Obstructive sleep apnea, severe. 7. Morbid obesity. 8. Pulmonary hypertension, multifactorial. 9. Rheumatoid arthritis. 10. Psoriasis. 11. Major depressive disorder. 12. Coronary artery disease, multivessel. PAST SURGICAL HISTORY: 1. Cholecystectomy. 2. Multiple back surgeries. SOCIAL HISTORY: He has got a greater than [id number]-[id number] history of smoking, but does not currently us ing alcohol, tobacco, or illicit drug use. He has no exposures to chemicals, dust asbestos, or tuber culosis. FAMILY HISTORY: Noncontributory. ALLERGIES: No known drug allergies. MEDICATIONS: List of inpatient medications were reviewed. A couple of small updates were made. REVIEW OF SYSTEMS: General, head, ears, eyes, nose, throat, cardiovascular, respiratory, GI, , mus culoskeletal, neurologic, and skin is negative except as mentioned in the HPI. PHYSICAL EXAMINATION: VITAL SIGNS: Afebrile, pulse 68, blood pressure 139/62, respirations 20, saturation 94% on 3 liters nasal cannula. GENERAL: Patient is awake, alert, in no apparent distress. LUNGS: Decreased air entry. This is much worse than 3 days ago. He has a prolonged expiratory phas e as well as wheezing and rhonchi. No crackles are appreciated today. HEART: Normal rate, regular. ABDOMEN: Soft, nontender, nondistended, bowel sounds positive. MUSCULOSKELETAL: No cyanosis or clubbing. There is 1-2+ pitting in the bilateral lower extremities. This is actually much better than when he left the hospital. LABORATORY DATA: WBC 9.4, hemoglobin 12.0, platelets 221,000. Eosinophil count is normal. D-dimer 0.51, pH of 7.4, pCO2 of 51 on a VBG. Creatinine of 1.76 and roughly stable/downtrending compared to the recent hospital stay. BUN is uptrending to 47. Basic metabolic profile was otherwise unremarka ble. Ionized calcium 0.99. Troponin is gently downtrending to 0.047 with a BNP of 77. AST and ALT are marginally elevated. Liver function studies otherwise unremarkable. Influenza A and B are negat kizzy. ASSESSMENT: 1. Acute on chronic hypoxic respiratory failure. 2. Chronic obstructive pulmonary disease with true exacerbation. 3. Chronic diastolic heart failure, improved compared to prior hospital stay. 4. Pulmonary hypertension, multifactorial. 5. Obstructive sleep apnea. DISCUSSION AND PLAN: My suspicion is that the patient has caught a viral illness compared to his alvin or hospital stay. I will do a repeat respiratory virus panel to see if anything turns out. We will continue steroids, nebulize medications, as well as antibiotics. D-dimer was slightly elevated. VQ scan will be considered if the patient does not have a profound improvement in respiratory symptoms. I will increase his prednisone to methylprednisolone 40 mg IV twice daily. Because of his increased work of breathing, and requirements for BiPAP, and an non-obstructive sleep apnea treatment fashion, we will escalate his care to the [facility], so that we can keep a close watch on him. Pulmonary Critical Care will continue to follow.
[2017-06-24 04:33] LABS: #Lymphocytes 1.3 thou/uL (1.20-3.40); #Monocytes 0.4 thou/uL (0.11-0.59); #Neutrophils 7.5 thou/uL (1.40-6.50); %Basophils 0.2 % (0.0-1.0); %Eosinophils 0.3 % (0.0-10.0); %Lymphocytes 14.3 % (21.0-51.0); %Monocytes 4.7 % (0.0-10.0); %Neutrophils 80.5 % (42.0-75.0); Hemoglobin 12.3 g/dL (14.0-18.0); Mean Corpuscular HGB CONC 31.4 g/dL (32.0-36.0); Mean Corpuscular Hemoglobin 26.9 pg (27.0-31.0); Mean Corpuscular Volume 85.4 fl (80.0-94.0); Mean Platelet Volume 7.8 fL (7.4-10.4); Platelet Count 219 thou/uL (130-400); RBC Distribution Width 15.2 % (11.5-14.5); White Blood Cell (WBC) Count 9.3 thou/uL (4.8-10.8)
[2017-06-24 04:52] LABS: Anion Gap 14 mmol/L (10-20); BUN (Urea Nitrogen) 51 mg/dL (8.4-25.7); Calc. Creatinine Clearance 75 mL/min (70-130); Calcium 9.5 mg/dL (7.8-10.44); Carbon Dioxide 35 mmol/L (23-31); Chloride 96 mmol/L (98-107); Estimated GFR-MDRD 37; Glucose 190 mg/dL (83-110); Magnesium 2.6 mg/dL (1.6-2.6); Potassium 3.7 mmol/L (3.5-5.1); Sodium 141 mmol/L (136-145)
[2017-06-24] MEDS: HumaLOG 300 UNITS/3 ML VIAL SC PRN ×3 (05:43→17:40)
[2017-06-24] MEDS: Mometasone/Formoterol 120 PUFF INHALER INH SCH (06:39)
--- NOTE | 2017-06-24 08:06 | PDOC.CTH ---
Cardiology Progress Note - Objective Vital Signs Temp Pulse Resp BP BP BP Pulse Ox 06/24/17 07:00 97.5 F L 62 22 H 156/64 H 92 L 06/24/17 04:00 97.6 F 58 L 16 149/58 H 96 06/24/17 00:00 98.0 F 56 L 16 162/58 H 94 L 06/23/17 21:41 155/73 H 06/23/17 20:08 98.2 F 67 20 130/49 L 100 Weight 318 lb 9 oz 06/23/17 06/24/17 06/25/17 06:59 06:59 06:59 Intake Total 500 1680 Output Total 550 2425 Balance -50 -501 - Labs Result Diagrams: 06/24/17 04:02 06/24/17 04:02 Troponin/CKMB CK-MB (CK-2) 3.6 ng/mL (0-6.6) 06/22/17 09:50 Troponin I 0.047 ng/mL (< 0.028) H 06/22/17 16:37 - Assessment/Plan (1) Acute and chronic respiratory failure Code(s): J96.20 - ACUTE AND CHR RESP FAILURE, UNSP W HYPOXIA OR HYPERCAPNIA Status: Acute (2) CHF exacerbation Code(s): I50.9 - HEART FAILURE, UNSPECIFIED Status: Acute (3) COPD exacerbation Code(s): J44.1 - CHRONIC OBSTRUCTIVE PULMONARY DISEASE W (ACUTE) EXACERBATION Status: Acute (4) CKD (chronic kidney disease) Code(s): N18.9 - CHRONIC KIDNEY DISEASE, UNSPECIFIED Status: Chronic (5) Multi-vessel coronary artery stenosis Code(s): I25.10 - ATHSCL HEART DISEASE OF [place] CORONARY ARTERY W/O ANG PCTRS Status: Acute (6) DM type 2 (diabetes mellitus, type 2) Status: Chronic (7) Dyslipidemia Code(s): E78.5 - HYPERLIPIDEMIA, UNSPECIFIED Status: Chronic (8) Paroxysmal atrial fibrillation Code(s): I48.0 - PAROXYSMAL ATRIAL FIBRILLATION Status: Chronic Comment: on xarelto (9) Sleep apnea, obstructive Code(s): G47.33 - OBSTRUCTIVE SLEEP APNEA (ADULT) (PEDIATRIC) Status: Chronic - Plan PT/OT, out of bed/ambulate . Continue oxygen, steroids, bronchodilators, diuretics. Accuchecks, insulin sliding scale. Monitor vital signs, titrate antihypertensives as needed. CKD stable.
--- NOTE | 2017-06-24 08:10 | PDOC.PN ---
- Subjective Encounter Start Date: 06/24/17 Encounter Start Time: 08:08 Subjective: Seen and examined feeling ok but still in bad shape - Objective Resuscitation Status: Resuscitation Status FULL:Full Resuscitation Vital Signs & Weight: Vital Signs (12 hours) Temp Pulse Resp BP BP Pulse Ox 06/24/17 07:00 97.5 F L 62 22 H 156/64 H 92 L 06/24/17 04:00 97.6 F 58 L 16 149/58 H 96 06/24/17 00:00 98.0 F 56 L 16 162/58 H 94 L 06/23/17 21:41 155/73 H Weight Weight 318 lb 9 oz I&O: 06/23/17 06/24/17 06/25/17 06:59 06:59 06:59 Intake Total 500 1680 Output Total 550 2425 Balance -50 -745 Result Diagrams: 06/24/17 04:02 06/24/17 04:02 Additional Labs: Accuchecks 06/24/17 06/23/17 05:37 20:44 POC Glucose 197 H 272 H Phys Exam - Physical Examination Constitutional: NAD HEENT: PERRLA, moist MMs, sclera anicteric, TM's clear Neck: no nodes, no JVD, supple, full ROM Respiratory: wheezing present Cardiovascular: RRR, no significant murmur, no rub Gastrointestinal: soft, non-tender, no distention, positive bowel sounds Musculoskeletal: pulses present, edema present Neurological: normal sensation, moves all 4 limbs Psychiatric: normal affect, A&O x 3 Dx/Plan (1) Acute and chronic respiratory failure Code(s): J96.20 - ACUTE AND CHR RESP FAILURE, UNSP W HYPOXIA OR HYPERCAPNIA Status: Acute (2) CHF exacerbation Code(s): I50.9 - HEART FAILURE, UNSPECIFIED Status: Acute (3) COPD exacerbation Code(s): J44.1 - CHRONIC OBSTRUCTIVE PULMONARY DISEASE W (ACUTE) EXACERBATION Status: Acute (4) COPD with acute exacerbation Code(s): J44.1 - CHRONIC OBSTRUCTIVE PULMONARY DISEASE W (ACUTE) EXACERBATION Status: Acute Comment: cont steroids, nebs (5) Diastolic CHF, acute on chronic Code(s): I50.33 - ACUTE ON CHRONIC DIASTOLIC (CONGESTIVE) HEART FAILURE Status : Acute Comment: suspect diastolic dysfunction due to hypertensive crisis. (6) HTN (hypertension) Code(s): I10 - ESSENTIAL (PRIMARY) HYPERTENSION Status: Acute (7) Morbid obesity Code(s): E66.01 - MORBID (SEVERE) OBESITY DUE TO EXCESS CALORIES Status: Acute (8) DM type 2 (diabetes mellitus, type 2) Status: Chronic (9) Dyslipidemia Code(s): E78.5 - HYPERLIPIDEMIA, UNSPECIFIED Status: Chronic (10) Paroxysmal atrial fibrillation Code(s): I48.0 - PAROXYSMAL ATRIAL FIBRILLATION Status: Chronic Comment: on brandon (11) Sleep apnea, obstructive Code(s): G47.33 - OBSTRUCTIVE SLEEP APNEA (ADULT) (PEDIATRIC) Status: Chronic - Plan plan discussed w/ family, continue antibiotics, PT/OT, socially responsible investment adviser, respiratory therapy Continue sterods/nebs/antibuotics -: Appreciate cardiology and pulmonary input * .
[2017-06-24] MEDS: Polyethylene Glycol 3350 17 GM Packet PO SCH (08:28)
[2017-06-24] MEDS: TICAGRELOR 90 MG TABLET PO SCH ×2 (08:29→21:35)
[2017-06-24] MEDS: Prenatal Vitamin 1 TAB PO SCH (08:29)
[2017-06-24] MEDS: Amiodarone 200 MG TAB PO SCH (08:30)
[2017-06-24] MEDS: Valsartan 80 MG TAB PO SCH (08:30)
[2017-06-24] MEDS: Carvedilol 6.25 MG TAB PO SCH ×2 (08:30→21:35)
[2017-06-24] MEDS: FLUoxetine HCl 20 MG CAP PO SCH ×3 (08:30→21:36)
[2017-06-24] MEDS: glipiZIDE 5 MG TAB PO SCH (08:30)
[2017-06-24] MEDS: Furosemide 100 MG/10 ML VIAL SLOW IVP SCH (08:30)
[2017-06-24] MEDS: glyBURIDE 5 MG TAB PO SCH (08:30)
--- NOTE | 2017-06-24 10:43 | PRG ---
DATE OF SERVICE: 06/24/2017 SERVICE: Pulmonary Medicine. INTERVAL HISTORY: The patient is doing really well from a respiratory standpoint. He is much improv ed over the last 24 hours. Otherwise, there has been no interval change to his condition. He is cou ghing and bringing up a little bit of sputum. Outside of that, there were no overnight events. PHYSICAL EXAMINATION: VITAL SIGNS: Afebrile, pulse 62, blood pressure 155/73, respirations 22, and saturation 92% on 3 lit ers nasal cannula. GENERAL: Patient is awake, alert, in no apparent distress. LUNGS: Decent air entry. This is improved compared to yesterday. There is polyphonic expiratory wh eezing present. I do not appreciate crackles or rhonchi today. HEART: Normal rate, regular. ABDOMEN: Soft, nontender, nondistended. Bowel sounds are positive. MUSCULOSKELETAL: No cyanosis or clubbing. There is trace to 1+ pitting in the bilateral lower extre mities. NEUROLOGIC: Grossly nonfocal. LABORATORY DATA: WBC 9.3, hemoglobin 12.3, platelets 219,000. D-dimer 0.51. Creatinine 1.78, BUN 8 1. Bicarbonate 35 and gently up trending. Basic metabolic profile is otherwise unremarkable. Magne sium and phosphorus all within the normal limits. Respiratory virus panel is currently pending. ASSESSMENT: 1. Acute on chronic hypoxic respiratory failure. 2. Chronic obstructive pulmonary disease with acute exacerbation. 3. Chronic diastolic heart failure, currently close to euvolemia. 4. Pulmonary hypertension, multifactorial. 5. Obstructive sleep apnea. PLAN: We will follow up on the respiratory virus panel. If this is abnormal on this occasion, no ad ditional studies will be performed. If on the other hand, we do not identify viral illness that prec ipitated this presentation, VQ scan may need to be considered, looking into whether or not a pulmonar y embolism is possibility here. Until then, I will continue the steroids, nebulize medications, and antibiotic. Pulmonary Critical Care will continue to follow him through the weekend. He will likely need to stay here. Case management consultation will be placed for rehabilitation stay if he qualif ies.
[2017-06-24] MEDS: Ubidecarenone 50 MG CAP PO SCH (21:35)
[2017-06-24] MEDS: Rosuvastatin 20 MG TAB PO SCH (21:35)
[2017-06-24] MEDS: Loratadine 10 MG TAB PO SCH (21:35)
[2017-06-24] MEDS: Senokot S 8.6-50 MG TAB PO SCH (21:35)
[2017-06-24] MEDS: Enoxaparin Sodium 40 MG/0.4 ML SYRINGE SC SCH (21:36)
[2017-06-25 04:26] LABS: #Lymphocytes 1.9 thou/uL (1.20-3.40); #Monocytes 0.6 thou/uL (0.11-0.59); #Neutrophils 10.8 thou/uL (1.40-6.50); %Eosinophils 0.3 % (0.0-10.0); %Lymphocytes 14.1 % (21.0-51.0); %Monocytes 4.3 % (0.0-10.0); %Neutrophils 81.3 % (42.0-75.0); Mean Corpuscular Hemoglobin 27.4 pg (27.0-31.0); Mean Corpuscular Volume 85.8 fl (80.0-94.0); Mean Platelet Volume 7.7 fL (7.4-10.4); Platelet Count 265 thou/uL (130-400); RBC Distribution Width 15.6 % (11.5-14.5); Red Blood Cell (RBC) Count 4.72 mill/uL (4.70-6.10); White Blood Cell (WBC) Count 13.3 thou/uL (4.8-10.8)
[2017-06-25 04:50] LABS: Anion Gap 14 mmol/L (10-20); BUN (Urea Nitrogen) 55 mg/dL (8.4-25.7); Calc. Creatinine Clearance 75 mL/min (70-130); Calcium 9.9 mg/dL (7.8-10.44); Carbon Dioxide 32 mmol/L (23-31); Chloride 95 mmol/L (98-107); Estimated GFR-MDRD 38; Glucose 230 mg/dL (83-110); Potassium 3.9 mmol/L (3.5-5.1); Sodium 137 mmol/L (136-145)
[2017-06-25] MEDS: HumaLOG 300 UNITS/3 ML VIAL SC PRN ×2 (06:04→17:33)
[2017-06-25] MEDS: Prenatal Vitamin 1 TAB PO SCH (09:30)
[2017-06-25] MEDS ORDERED: Ampicillin 2 GM, Syringe 5.2 ML in Sterile Water 14.8 ML SLOW IVP SCH (09:30)
[2017-06-25] MEDS: Furosemide 100 MG/10 ML VIAL SLOW IVP SCH ×2 (09:30→20:35)
[2017-06-25] MEDS: TICAGRELOR 90 MG TABLET PO SCH ×2 (09:30→20:38)
[2017-06-25] MEDS: Polyethylene Glycol 3350 17 GM Packet PO SCH (09:30)
[2017-06-25] MEDS: Carvedilol 6.25 MG TAB PO SCH ×2 (09:31→20:35)
[2017-06-25] MEDS: Amiodarone 200 MG TAB PO SCH (09:31)
[2017-06-25] MEDS: FLUoxetine HCl 20 MG CAP PO SCH ×3 (09:31→20:35)
[2017-06-25] MEDS: glyBURIDE 5 MG TAB PO SCH (09:31)
[2017-06-25] MEDS: Senokot S 8.6-50 MG TAB PO SCH ×2 (09:31→20:35)
[2017-06-25] MEDS: Valsartan 80 MG TAB PO SCH (09:31)
[2017-06-25] MEDS: glipiZIDE 5 MG TAB PO SCH (09:31)
--- NOTE | 2017-06-25 12:54 | PDOC.PN ---
- Subjective Encounter Start Date: 06/25/17 Encounter Start Time: 12:53 Subjective: Seen and examined feeling better - Objective Resuscitation Status: Resuscitation Status FULL:Full Resuscitation Vital Signs & Weight: Vital Signs (12 hours) Temp Pulse Resp BP BP Pulse Ox 06/25/17 12:38 97.6 F 66 20 182/79 H 98 06/25/17 07:55 61 20 97 06/25/17 07:32 97.6 F 59 L 20 135/68 95 06/25/17 07:20 97.6 F 72 24 H 96 06/25/17 04:00 97.6 F 72 24 H 117/50 L 93 L Weight Weight 316 lb 5 oz I&O: 06/24/17 06/25/17 06/26/17 06:59 06:59 06:59 Intake Total 1680 1560 320 Output Total 2425 2050 Balance -745 490 320 Result Diagrams: 06/25/17 04:00 06/25/17 04:00 Additional Labs: Accuchecks 06/25/17 06/25/17 06/24/17 10:55 06:05 21:35 POC Glucose 134 H 305 H 181 H 06/24/17 16:49 POC Glucose 161 H Phys Exam - Physical Examination Constitutional: NAD HEENT: PERRLA, moist MMs, sclera anicteric, TM's clear, oral pharynx no lesions Neck: no nodes, no JVD, supple, full ROM Respiratory: no rales, no rhonchi, wheezing present Cardiovascular: RRR, no significant murmur, no rub Gastrointestinal: soft, non-tender, no distention, positive bowel sounds Musculoskeletal: no edema, pulses present Dx/Plan (1) Acute and chronic respiratory failure Code(s): J96.20 - ACUTE AND CHR RESP FAILURE, UNSP W HYPOXIA OR HYPERCAPNIA Status: Acute (2) CHF exacerbation Code(s): I50.9 - HEART FAILURE, UNSPECIFIED Status: Acute (3) COPD exacerbation Code(s): J44.1 - CHRONIC OBSTRUCTIVE PULMONARY DISEASE W (ACUTE) EXACERBATION Status: Acute (4) COPD with acute exacerbation Code(s): J44.1 - CHRONIC OBSTRUCTIVE PULMONARY DISEASE W (ACUTE) EXACERBATION Status: Acute Comment: cont steroids, nebs (5) Diastolic CHF, acute on chronic Code(s): I50.33 - ACUTE ON CHRONIC DIASTOLIC (CONGESTIVE) HEART FAILURE Status : Acute Comment: suspect diastolic dysfunction due to hypertensive crisis. (6) HTN (hypertension) Code(s): I10 - ESSENTIAL (PRIMARY) HYPERTENSION Status: Acute (7) Morbid obesity Code(s): E66.01 - MORBID (SEVERE) OBESITY DUE TO EXCESS CALORIES Status: Acute (8) DM type 2 (diabetes mellitus, type 2) Status: Chronic (9) Dyslipidemia Code(s): E78.5 - HYPERLIPIDEMIA, UNSPECIFIED Status: Chronic (10) Paroxysmal atrial fibrillation Code(s): I48.0 - PAROXYSMAL ATRIAL FIBRILLATION Status: Chronic Comment: on malloryto (11) Sleep apnea, obstructive Code(s): G47.33 - OBSTRUCTIVE SLEEP APNEA (ADULT) (PEDIATRIC) Status: Chronic (12) Hypertension Code(s): I10 - ESSENTIAL (PRIMARY) HYPERTENSION Status: Acute - Plan plan discussed w/ family, continue antibiotics, PT/OT, social services counselor, respiratory therapy PRN antihypertensives -: Adjust Bp meds to optimise hemodynamics * .
[2017-06-25] MEDS ORDERED: hydrALAZINE 20 MG/ML VIAL SLOW IVP SCH (15:45)
--- NOTE | 2017-06-25 17:26 | PDOC.CTH ---
Cardiology Progress Note - Subjective Still SOB but some improvement. - Objective Vital Signs Temp Pulse Resp BP BP BP Pulse Ox 06/25/17 15:37 60 06/25/17 15:32 98.1 F 60 20 211/63 H 99 06/25/17 13:45 73 06/25/17 12:38 97.6 F 66 20 182/79 H 98 06/25/17 07:55 61 20 97 06/25/17 07:32 97.6 F 59 L 20 135/68 95 06/25/17 07:20 97.6 F 72 24 H 96 Weight 316 lb 5 oz 06/24/17 06/25/17 06/26/17 06:59 06:59 06:59 Intake Total 1680 1560 680 Output Total 2425 2050 650 Balance -745 -490 30 - Physical Examination General/Neuro: alert & oriented x3, NAD Neck: no JVD present Lungs: unlabored respirations, other: (reduced breath sounds bilat. ) Heart: RRR Abdomen: NT/ND Extremities: + edema B (1+) - Telemetry Telemetry Rhythm: S tach. - Labs Result Diagrams: 06/25/17 04:00 06/25/17 04:00 Troponin/CKMB CK-MB (CK-2) 3.6 ng/mL (0-6.6) 06/22/17 09:50 Troponin I 0.047 ng/mL (< 0.028) H 06/22/17 16:37 - Assessment/Plan 1. COPD exacerbation 2. RV failure 3. Diastolic heart failure 4. LYDIA 5. Morbid obesity 6. CKD stage III 7. RSV B infection. 8. HTN PLAN: - Continue IV diuresis. - Continue other meds. - PRNs for BP for now. He had an episode were his BP was very high but it was with his O2 disconnected and he was struggling to breath even with the CPAP mask on so he was agitated, improved once this was resolved. - Will increase hydralazine to TID dosing.
[2017-06-25] MEDS ORDERED: Morphine 2 MG/ML SYRINGE SLOW IVP SCH (17:30)
[2017-06-25] MEDS: Enoxaparin Sodium 40 MG/0.4 ML SYRINGE SC SCH (20:34)
[2017-06-25] MEDS: hydrALAZINE 25 MG TAB PO SCH (20:35)
[2017-06-25] MEDS: Ubidecarenone 50 MG CAP PO SCH (20:35)
[2017-06-25] MEDS: Loratadine 10 MG TAB PO SCH (20:35)
[2017-06-25] MEDS: Rosuvastatin 20 MG TAB PO SCH (20:36)
[2017-06-25] MEDS ORDERED: hydrALAZINE 25 MG TAB PO SCH ×2 (21:00)
[2017-06-25] MEDS ORDERED: hydrALAZINE 20 MG/ML VIAL SLOW IVP PRN (21:00)
--- NOTE | 2017-06-25 21:17 | PRG ---
DATE OF SERVICE: 06/25/2017 Mr. Pagan had no complaints. He said he was feeling a little bit better than he felt yesterday. OBJECTIVE: VITAL SIGNS: He is afebrile, heart rate 60, respiratory rate is 20, oximetry is 99, blood pressure h as actually been elevated intermittently with a high of 211/63 this afternoon. LUNGS: Remarkable for diffuse wheezes. HEART: Regular rhythm. ABDOMEN: Soft and nontender. LABORATORY DATA: White count 13.3, hemoglobin 13.0, platelets 265. Sodium 137, potassium 3.9, chloride 95, bicarbonate 32, BUN 55, creatinine 1.75. Intake and output i s negative 490. IMPRESSION: 1. Acute on chronic hypoxic respiratory failure. 2. Chronic obstructive pulmonary disease with acute exacerbation. 3. Chronic diastolic heart failure, slowly being diuresed. 4. Multifactorial pulmonary hypertension. 5. Sleep apnea. PLAN: Continue current care given his ongoing clinical improvement. We are going to hold off on doi ng a V/Q scan.
[2017-06-26] MEDS: HumaLOG 300 UNITS/3 ML VIAL SC PRN ×2 (05:23→21:27)
--- NOTE | 2017-06-26 09:05 | PDOC.PN ---
- Subjective Encounter Start Date: 06/26/17 Encounter Start Time: 09:04 Subjective: Seen and examined feeling a little bit better today - Objective Resuscitation Status: Resuscitation Status FULL:Full Resuscitation Vital Signs & Weight: Vital Signs (12 hours) Temp Pulse Resp BP BP Pulse Ox 06/26/17 07:58 80 22 H 98 06/26/17 07:54 98.6 F 55 L 22 H 97 06/26/17 07:27 97.4 F L 73 18 136/96 H 95 06/26/17 04:00 98.6 F 55 L 22 H 185/68 H 97 06/26/17 00:00 98.1 F 60 22 H 139/99 H 93 L 06/25/17 23:21 95 Weight Weight 317 lb 2 oz I&O: 06/25/17 06/26/17 06/27/17 06:59 06:59 06:59 Intake Total 1560 1520 Output Total 2050 1050 Balance -490 470 Result Diagrams: 06/25/17 04:00 06/25/17 04:00 Additional Labs: Accuchecks 06/26/17 06/25/17 06/25/17 05:23 20:35 17:14 POC Glucose 253 H 242 H 191 H 06/25/17 10:55 POC Glucose 134 H Phys Exam - Physical Examination Constitutional: NAD HEENT: PERRLA, moist MMs, sclera anicteric, TM's clear Neck: no nodes, no JVD, supple, full ROM Respiratory: wheezing present Cardiovascular: RRR, no significant murmur, no rub Gastrointestinal: soft, non-tender, no distention, positive bowel sounds Musculoskeletal: pulses present, edema present Neurological: non-focal, normal sensation, moves all 4 limbs Lymphatic: no nodes Psychiatric: normal affect, A&O x 3 Dx/Plan (1) Acute and chronic respiratory failure Code(s): J96.20 - ACUTE AND CHR RESP FAILURE, UNSP W HYPOXIA OR HYPERCAPNIA Status: Acute (2) CHF exacerbation Code(s): I50.9 - HEART FAILURE, UNSPECIFIED Status: Acute (3) COPD exacerbation Code(s): J44.1 - CHRONIC OBSTRUCTIVE PULMONARY DISEASE W (ACUTE) EXACERBATION Status: Acute (4) COPD with acute exacerbation Code(s): J44.1 - CHRONIC OBSTRUCTIVE PULMONARY DISEASE W (ACUTE) EXACERBATION Status: Acute Comment: cont steroids, nebs (5) Diastolic CHF, acute on chronic Code(s): I50.33 - ACUTE ON CHRONIC DIASTOLIC (CONGESTIVE) HEART FAILURE Status : Acute Comment: suspect diastolic dysfunction due to hypertensive crisis. (6) HTN (hypertension) Code(s): I10 - ESSENTIAL (PRIMARY) HYPERTENSION Status: Acute (7) Morbid obesity Code(s): E66.01 - MORBID (SEVERE) OBESITY DUE TO EXCESS CALORIES Status: Acute (8) DM type 2 (diabetes mellitus, type 2) Status: Chronic (9) Dyslipidemia Code(s): E78.5 - HYPERLIPIDEMIA, UNSPECIFIED Status: Chronic (10) Paroxysmal atrial fibrillation Code(s): I48.0 - PAROXYSMAL ATRIAL FIBRILLATION Status: Chronic Comment: on xarelto (11) Sleep apnea, obstructive Code(s): G47.33 - OBSTRUCTIVE SLEEP APNEA (ADULT) (PEDIATRIC) Status: Chronic (12) Hypertension Code(s): I10 - ESSENTIAL (PRIMARY) HYPERTENSION Status: Acute - Plan polanco catheter, PT/OT, social staff worker, respiratory therapy, out of bed/ambulate Diuresis -: Bp much improved on the current meds --continue same -: Appreciate cardiology and Pulmonary input * .
[2017-06-26] MEDS: glyBURIDE 5 MG TAB PO SCH (09:27)
[2017-06-26] MEDS: TICAGRELOR 90 MG TABLET PO SCH ×2 (09:27→21:19)
[2017-06-26] MEDS: glipiZIDE 5 MG TAB PO SCH (09:28)
[2017-06-26] MEDS: FLUoxetine HCl 20 MG CAP PO SCH ×3 (09:28→21:20)
[2017-06-26] MEDS: Amiodarone 200 MG TAB PO SCH (09:28)
[2017-06-26] MEDS: hydrALAZINE 25 MG TAB PO SCH ×3 (09:28→21:20)
[2017-06-26] MEDS: Carvedilol 6.25 MG TAB PO SCH ×2 (09:31→21:20)
[2017-06-26] MEDS: Prenatal Vitamin 1 TAB PO SCH (09:31)
[2017-06-26] MEDS: Valsartan 80 MG TAB PO SCH (09:31)
[2017-06-26] MEDS: Polyethylene Glycol 3350 17 GM Packet PO SCH (09:32)
[2017-06-26] MEDS: Furosemide 100 MG/10 ML VIAL SLOW IVP SCH ×2 (09:32→21:21)
--- NOTE | 2017-06-26 13:46 | PRG ---
DATE OF SERVICE: 06/26/2017 SUBJECTIVE: Mr. Pagan says he had a bad night. Still on the side of the bed with a CPAP on. He says he cannot lie down. We planned to move into the Critical Care Unit and place him on BiPAP with higher pressures. OBJECTIVE: VITAL SIGNS: Blood pressure is 139/60, heart rate 80, respiratory rate is 20, oximetry is 98% on 3 l iters with his CPAP. LUNGS: Remarkable for diffuse tight wheezes. HEART: Regular rhythm. ABDOMEN: Soft and massive. If he did not have this abdominal girth, obviously, he would tolerate th is better. LABORATORY DATA: There is no new lab other than blood glucoses. IMPRESSION AND PLAN: 1. Chronic obstructive pulmonary disease exacerbation. 2. Sleep apnea. 3. Respiratory muscle insufficiency with his abdominal girth and his bronchospasm. We will plan to move him to the Critical Care Unit and place him on BiPAP. He is currently speaking in complete sent ences. I think a blood gas will be helpful at this point in time, but I do think rechecking his bessie l function and his CBC is reasonable. He cannot lie back for a chest x-ray and I do not think that elenita jade change our management at this point in time. He will be transferred down to the Critical Care [facility].
--- NOTE | 2017-06-26 18:00 | PDOC.CTH ---
Cardiology Progress Note - Subjective He has had increased work of breathing. - Objective Vital Signs Temp Pulse Resp BP BP Pulse Ox 06/26/17 16:00 97.6 F 06/26/17 15:41 66 06/26/17 15:05 66 06/26/17 12:28 71 06/26/17 12:10 79 F L 66 16 98 06/26/17 12:00 97.5 F L 06/26/17 11:35 64 06/26/17 09:58 72 20 98 06/26/17 09:31 139/60 06/26/17 09:28 80 139/60 06/26/17 07:58 80 22 H 98 06/26/17 07:54 98.6 F 55 L 22 H 97 06/26/17 07:27 97.4 F L 73 18 136/96 H 95 Weight 317 lb 2 oz 06/25/17 06/26/17 06/27/17 06:59 06:59 06:59 Intake Total 1560 1520 487 Output Total 2050 1050 775 Balance -490 470 -288 - Physical Examination General/Neuro: alert & oriented x3, NAD Neck: no JVD present Lungs: CTA, unlabored respirations Heart: RRR Abdomen: NT/ND Extremities: + edema B (2+) - Telemetry Telemetry Rhythm: S tach. - Labs Result Diagrams: 06/25/17 04:00 06/25/17 04:00 Troponin/CKMB CK-MB (CK-2) 3.6 ng/mL (0-6.6) 06/22/17 09:50 Troponin I 0.047 ng/mL (< 0.028) H 06/22/17 16:37 - Assessment/Plan 1. COPD exacerbation 2. RV failure 3. Diastolic heart failure 4. LYDIA 5. Morbid obesity 6. CKD stage III 7. RSV B infection. 8. HTN PLAN: - Continue IV diuresis. - Continue other meds. - PRNs for BP for now. He had an episode were his BP was very high but it was with his O2 disconnected and he was struggling to breath even with the CPAP mask on so he was agitated, improved once this was resolved. - Will increase hydralazine to TID dosing.
[2017-06-26] MEDS: (Apremilast [Otezla] 30 MG) PO SCH (19:07)
[2017-06-26] MEDS ORDERED: cloNIDine 0.1 MG TAB PO PRN (21:10)
[2017-06-26] MEDS ORDERED: predniSONE 20 MG TAB PO SCH (21:15)
[2017-06-26] MEDS: Loratadine 10 MG TAB PO SCH (21:19)
[2017-06-26] MEDS: Ubidecarenone 50 MG CAP PO SCH (21:19)
[2017-06-26] MEDS: Rosuvastatin 20 MG TAB PO SCH (21:20)
[2017-06-26] MEDS: Enoxaparin Sodium 40 MG/0.4 ML SYRINGE SC SCH (21:20)
[2017-06-27 05:58] LABS: #Lymphocytes 1.8 thou/uL (1.20-3.40); #Monocytes 0.9 thou/uL (0.11-0.59); #Neutrophils 10.9 thou/uL (1.40-6.50); %Basophils 0.2 % (0.0-1.0); %Eosinophils 0.3 % (0.0-10.0); %Lymphocytes 13.3 % (21.0-51.0); %Monocytes 6.5 % (0.0-10.0); %Neutrophils 79.7 % (42.0-75.0); Hemoglobin 12.6 g/dL (14.0-18.0); Mean Corpuscular HGB CONC 30.7 g/dL (32.0-36.0); Mean Corpuscular Hemoglobin 26.3 pg (27.0-31.0); Mean Corpuscular Volume 85.6 fl (80.0-94.0); Platelet Count 273 thou/uL (130-400); RBC Distribution Width 15.7 % (11.5-14.5); White Blood Cell (WBC) Count 13.7 thou/uL (4.8-10.8)
[2017-06-27 06:03] LABS: Anion Gap 16 mmol/L (10-20); BUN (Urea Nitrogen) 65 mg/dL (8.4-25.7); Calc. Creatinine Clearance 62 mL/min (70-130); Calcium 9.9 mg/dL (7.8-10.44); Carbon Dioxide 34 mmol/L (23-31); Chloride 94 mmol/L (98-107); Estimated GFR-MDRD 31; Glucose 230 mg/dL (83-110); Potassium 3.7 mmol/L (3.5-5.1); Sodium 140 mmol/L (136-145)
[2017-06-27] MEDS: HumaLOG 300 UNITS/3 ML VIAL SC PRN ×4 (06:14→21:16)
[2017-06-27] MEDS: Valsartan 80 MG TAB PO SCH (07:52)
[2017-06-27] MEDS: Prenatal Vitamin 1 TAB PO SCH (07:52)
[2017-06-27] MEDS: hydrALAZINE 25 MG TAB PO SCH ×3 (07:53→20:21)
[2017-06-27] MEDS: Carvedilol 6.25 MG TAB PO SCH (07:53)
[2017-06-27] MEDS: FLUoxetine HCl 20 MG CAP PO SCH ×3 (07:53→20:22)
[2017-06-27] MEDS: Amiodarone 200 MG TAB PO SCH (07:53)
[2017-06-27] MEDS: glyBURIDE 5 MG TAB PO SCH (07:53)
[2017-06-27] MEDS: glipiZIDE 5 MG TAB PO SCH (07:53)
[2017-06-27] MEDS: TICAGRELOR 90 MG TABLET PO SCH ×2 (07:54→20:22)
[2017-06-27] MEDS: Polyethylene Glycol 3350 17 GM Packet PO SCH (07:57)
[2017-06-27] MEDS: predniSONE 20 MG TAB PO SCH (08:28)
[2017-06-27] MEDS ORDERED: Furosemide 100 MG/10 ML VIAL SLOW IVP SCH ×2 (09:00)
[2017-06-27] MEDS ORDERED: predniSONE 20 MG TAB PO SCH (09:00)
[2017-06-27] MEDS: (Apremilast [Otezla] 30 MG) PO SCH ×2 (10:39→10:40)
--- NOTE | 2017-06-27 10:48 | PRG ---
DATE OF SERVICE: 06/27/2017 SERVICE: Pulmonary Medicine. INTERVAL HISTORY: The patient is doing fine from a respiratory standpoint. He is breathing much mor e comfortably today. He still does not have a lot of energy, though he has not been out of bed since he has been in the ICU. Otherwise, there has been no interval change to his condition. He is cough ing and bringing up significant amounts of sputum. He denies any chest pain or shortness of breath c urrently. PHYSICAL EXAMINATION: VITAL SIGNS: Afebrile, pulse 74, blood pressure 191/70, respirations 22 and saturation 99% on 3 lite rs nasal cannula. GENERAL: Patient is awake and alert, in no apparent distress. LUNGS: Decent air entry. There is a prolonged expiratory phase with polyphonic wheeze. I do not ap preciate crackles. Rhonchi cleared easily with cough. HEART: Normal rate and regular. ABDOMEN: Soft, nontender and nondistended. Bowel sounds are positive. MUSCULOSKELETAL: No cyanosis or clubbing. There is 1-2+ pitting in the bilateral lower extremities, which has vastly improved compared to prior hospital stay. GENITOURINARY: No Polk catheter. NEUROLOGIC: Grossly nonfocal. LABORATORY DATA: WBC 13.7, hemoglobin 12.6 and platelets 273,000. PH 7.43, pCO2 of 51. Creatinine 2.08 and up trending. BUN 65 and also trending. Basic metabolic profile is otherwise unremarkable w ith a potassium of 3.7. Respiratory virus panel is growing respiratory syncytial virus B. Influenza A and B is unremarkable. ASSESSMENT: 1. Acute on chronic hypoxic and hypercapnic respiratory failure. 2. Chronic obstructive pulmonary disease exacerbation secondary to respiratory syncytial virus B. 3. Chronic diastolic heart failure, currently close to euvolemic. 4. Pulmonary hypertension, multifactorial. 5. Obstructive sleep apnea. DISCUSSION AND PLAN: We will continue steroids, antibiotics, and nebulized medications. At least, w e know we are dealing with here. Pulmonary Critical Care will continue to follow. From my perspecti ve, he is stable for transition back to the [facility], though he might be able to go to the floor tomorrow , so it is reasonable to keep him here. We will continue BiPAP at night and during the daytime on a p.r.n. basis. He has lost his IV, so most of his medicines will be transitioned over to something or al. A midline catheter will be attempted.
[2017-06-27] MEDS ORDERED: Furosemide 80 MG TAB PO SCH (11:15)
--- NOTE | 2017-06-27 13:30 | PDOC.PN ---
- Subjective Encounter Start Date: 06/27/17 Encounter Start Time: 14:00 Subjective: Patient a bit short of breath after lunch and using Bipap during -: a nap, but otherwise doing much better. - Objective Resuscitation Status: Resuscitation Status FULL:Full Resuscitation MAR Reviewed: Yes Vital Signs & Weight: Vital Signs (12 hours) Temp Pulse Resp Pulse Ox 06/27/17 12:00 97.6 F 06/27/17 08:23 99 06/27/17 08:20 69 22 H 99 06/27/17 08:00 97.9 F 69 22 H 98 06/27/17 07:53 56 L 06/27/17 07:00 97.9 F 06/27/17 04:00 98.4 F Weight Weight 317 lb 2 oz Most Recent Monitor Data Heart Rate from ECG 68 NIBP 148/57 NIBP BP-Mean 79 Respiration from ECG 14 SpO2 98 I&O: 06/26/17 06/27/17 06/28/17 06:59 06:59 06:59 Intake Total 1520 607 720 Output Total 1050 1950 475 Balance 470 -1343 245 Result Diagrams: 06/27/17 05:22 06/27/17 05:22 Additional Labs: Accuchecks 06/27/17 06/26/17 06/26/17 11:10 21:27 16:49 POC Glucose 208 H 166 H 123 H Phys Exam - Physical Examination Constitutional: NAD HEENT: moist MMs Respiratory: no rales, no rhonchi occ wheeze, good air movement throughoug on Bipap Cardiovascular: RRR Gastrointestinal: soft, positive bowel sounds obese Musculoskeletal: edema present 1+ bilaterally (better per patient) Neurological: non-focal, moves all 4 limbs Psychiatric: normal affect, A&O x 3 Dx/Plan (1) Acute and chronic respiratory failure Code(s): J96.20 - ACUTE AND CHR RESP FAILURE, UNSP W HYPOXIA OR HYPERCAPNIA Status: Acute Qualifiers: Respiratory failure complication: hypoxia and hypercapnia Qualified Code(s) : J96.21 - Acute and chronic respiratory failure with hypoxia; J96.22 - Acute and chronic respiratory failure with hypercapnia; J96.22 - Acute and chronic respiratory failure with hypercapnia; J96.22 - Acute and chronic respiratory failure with hypercapnia (2) Diastolic CHF, acute on chronic Code(s): I50.33 - ACUTE ON CHRONIC DIASTOLIC (CONGESTIVE) HEART FAILURE Status : Acute Comment: suspect diastolic dysfunction due to hypertensive crisis. (3) COPD with acute exacerbation Code(s): J44.1 - CHRONIC OBSTRUCTIVE PULMONARY DISEASE W (ACUTE) EXACERBATION Status: Acute Comment: cont steroids, nebs, Bipap as needed and at night (4) Hypertension Code(s): I10 - ESSENTIAL (PRIMARY) HYPERTENSION Status: Chronic (5) Morbid obesity Code(s): E66.01 - MORBID (SEVERE) OBESITY DUE TO EXCESS CALORIES Status: Chronic (6) CKD (chronic kidney disease) Code(s): N18.9 - CHRONIC KIDNEY DISEASE, UNSPECIFIED Status: Chronic (7) DM type 2 (diabetes mellitus, type 2) Status: Chronic (8) Paroxysmal atrial fibrillation Code(s): I48.0 - PAROXYSMAL ATRIAL FIBRILLATION Status: Chronic Comment: on xarelto (9) Sleep apnea, obstructive Code(s): G47.33 - OBSTRUCTIVE SLEEP APNEA (ADULT) (PEDIATRIC) Status: Chronic - Plan cont current plan of care, PT/OT, respiratory therapy, DVT proph w/lovenox * . - Discharge Day Encounter end time: 14:20
[2017-06-27] MEDS: Loratadine 10 MG TAB PO SCH (20:22)
[2017-06-27] MEDS: Rosuvastatin 20 MG TAB PO SCH (20:22)
[2017-06-27] MEDS: Enoxaparin Sodium 40 MG/0.4 ML SYRINGE SC SCH (20:22)
[2017-06-27] MEDS: Ubidecarenone 50 MG CAP PO SCH (20:22)
[2017-06-28] MEDS: Furosemide 80 MG TAB PO SCH (06:28)
[2017-06-28] MEDS: Valsartan 80 MG TAB PO SCH (08:18)
[2017-06-28] MEDS: hydrALAZINE 25 MG TAB PO SCH ×3 (08:19→20:38)
[2017-06-28] MEDS: Prenatal Vitamin 1 TAB PO SCH (08:19)
[2017-06-28] MEDS: FLUoxetine HCl 20 MG CAP PO SCH ×3 (08:19→20:39)
[2017-06-28] MEDS: predniSONE 20 MG TAB PO SCH (08:19)
[2017-06-28] MEDS: Amiodarone 200 MG TAB PO SCH (08:20)
[2017-06-28] MEDS: TICAGRELOR 90 MG TABLET PO SCH ×2 (08:20→20:45)
[2017-06-28] MEDS: Polyethylene Glycol 3350 17 GM Packet PO SCH (08:20)
[2017-06-28] MEDS: glyBURIDE 5 MG TAB PO SCH (08:20)
[2017-06-28] MEDS: glipiZIDE 5 MG TAB PO SCH (08:25)
--- NOTE | 2017-06-28 10:49 | PRG ---
DATE OF SERVICE: 06/28/2017 SERVICE: Pulmonary Medicine INTERVAL HISTORY: The patient is doing outstanding from a respiratory standpoint. He denies any cur rent fevers, chills, nausea, vomiting or chest discomfort. He is breathing much better and he is act ually walking around the room a touch today. He is having a little bit of bloody bowel movements. O therwise, there has been no interval change in his condition. PHYSICAL EXAMINATION: VITAL SIGNS: Afebrile, pulse 67, blood pressure 129/65, respirations 20, saturation 100% on 3 liters nasal cannula. GENERAL: The patient is awake, alert, in no apparent distress. LUNGS: Decent air entry. There is minimally prolonged expiratory phase, but the air entry is much i mproved. I can appreciate crackles today and there is also some polyphonic wheezing with forced exha lation. No rhonchi. HEART: Normal rate, regular. ABDOMEN: Soft, nontender, nondistended. Bowel sounds are positive. MUSCULOSKELETAL: No cyanosis or clubbing. No pitting in the bilateral lower extremities. NEUROLOGIC: Grossly nonfocal. ASSESSMENT: 1. Acute on chronic hypoxic and hypercapnic respiratory failure. 2. Chronic obstructive pulmonary disease with acute exacerbation, secondary to respiratory syncytial virus B. 3. Chronic diastolic heart failure, currently close to euvolemic. 4. Pulmonary hypertension, multifactorial. 5. Obstructive sleep apnea, DISCUSSION AND PLAN: We will continue our steroids, antibiotics, nebulized medications. The patient has more clearly turned the corner and seems to be improving slightly. As such, he can be transitio ron out of the ICU to the medical unit. We will continue to diurese him on a daily basis. Supportiv e management will otherwise be considered. We will give him some stool softeners if he continues to have bloody bowel movements, a GI consultation will be considered.
--- NOTE | 2017-06-28 11:53 | PDOC.PN ---
- Subjective Encounter Start Date: 06/28/17 Encounter Start Time: 12:30 Subjective: transfered to medical, doing better until ate lunch and again had worsened -: SOB. - Objective Resuscitation Status: Resuscitation Status FULL:Full Resuscitation MAR Reviewed: Yes Vital Signs & Weight: Vital Signs (12 hours) Temp Pulse Resp Pulse Ox 06/28/17 08:05 58 L 06/28/17 08:04 57 L 17 98 06/28/17 07:14 97.7 F 64 16 99 06/28/17 07:00 97.7 F 06/28/17 03:58 98.1 F 06/28/17 00:11 61 06/27/17 23:54 98 F Weight Weight 314 lb 9.594 oz Most Recent Monitor Data Heart Rate from ECG 67 NIBP 119/54 NIBP BP-Mean 80 Respiration from ECG 20 SpO2 97 I&O: 06/27/17 06/28/17 06/29/17 06:59 06:59 06:59 Intake Total 607 2240 480 Output Total 1950 1425 Balance -1343 815 480 Result Diagrams: 06/27/17 05:22 06/27/17 05:22 Additional Labs: Accuchecks 06/28/17 06/28/17 06/27/17 10:49 05:15 21:14 POC Glucose 148 H 124 H 225 H 06/27/17 17:22 POC Glucose 220 H Phys Exam - Physical Examination mild respiratory distress HEENT: moist MMs Respiratory: no rales, no rhonchi, wheezing present Cardiovascular: RRR Gastrointestinal: soft, positive bowel sounds Neurological: non-focal, moves all 4 limbs Psychiatric: normal affect, A&O x 3 Dx/Plan (1) Acute and chronic respiratory failure Code(s): J96.20 - ACUTE AND CHR RESP FAILURE, UNSP W HYPOXIA OR HYPERCAPNIA Status: Acute Qualifiers: Respiratory failure complication: hypoxia and hypercapnia Qualified Code(s) : J96.21 - Acute and chronic respiratory failure with hypoxia; J96.22 - Acute and chronic respiratory failure with hypercapnia; J96.22 - Acute and chronic respiratory failure with hypercapnia; J96.22 - Acute and chronic respiratory failure with hypercapnia (2) Diastolic CHF, acute on chronic Code(s): I50.33 - ACUTE ON CHRONIC DIASTOLIC (CONGESTIVE) HEART FAILURE Status : Acute Comment: suspect diastolic dysfunction due to hypertensive crisis. (3) COPD with acute exacerbation Code(s): J44.1 - CHRONIC OBSTRUCTIVE PULMONARY DISEASE W (ACUTE) EXACERBATION Status: Acute Comment: cont steroids, nebs, Bipap at night (4) Hypertension Code(s): I10 - ESSENTIAL (PRIMARY) HYPERTENSION Status: Chronic (5) Morbid obesity Code(s): E66.01 - MORBID (SEVERE) OBESITY DUE TO EXCESS CALORIES Status: Chronic (6) CKD (chronic kidney disease) Code(s): N18.9 - CHRONIC KIDNEY DISEASE, UNSPECIFIED Status: Chronic (7) DM type 2 (diabetes mellitus, type 2) Status: Chronic (8) Paroxysmal atrial fibrillation Code(s): I48.0 - PAROXYSMAL ATRIAL FIBRILLATION Status: Chronic Comment: on brandon (9) Sleep apnea, obstructive Code(s): G47.33 - OBSTRUCTIVE SLEEP APNEA (ADULT) (PEDIATRIC) Status: Chronic - Plan cont current plan of care Patient doing better, now transfered to medical bed. -: ? aspiration- will have speech therapy evaluate * . - Discharge Day Encounter end time: 12:45
[2017-06-28] MEDS: HumaLOG 300 UNITS/3 ML VIAL SC PRN ×2 (17:31→23:03)
[2017-06-28] MEDS: Rosuvastatin 20 MG TAB PO SCH (20:37)
[2017-06-28] MEDS: Enoxaparin Sodium 40 MG/0.4 ML SYRINGE SC SCH (20:37)
[2017-06-28] MEDS: Loratadine 10 MG TAB PO SCH (20:39)
[2017-06-28] MEDS: guaiFENesin ER 600 MG TAB PO SCH (20:39)
[2017-06-28] MEDS: Ubidecarenone 50 MG CAP PO SCH (23:01)
--- NOTE | 2017-06-29 00:01 | CON ---
DATE OF CONSULTATION: 06/28/2017 CONSULTING PHYSICIAN: Jeevan Han M.D. REASON FOR CONSULTATION: Acute kidney injury on chronic kidney disease. REASON FOR ADMISSION: Shortness of breath. HISTORY OF PRESENT ILLNESS: This is a 77-year-old male with a history of COPD, CHF, chronic kidney d isease, who came to the hospital with shortness of being treated for COPD and CHF exacerbation. The patient does follow up with our office and family informed us that the patient was admitted to the [facility]. He is feeling better, no chest pain, no fever or chills. His creatinine is slightly elevate d from baseline. PAST MEDICAL HISTORY: Positive for COPD, CHF, atrial fibrillation, obstructive sleep apnea, morbid o besity, pulmonary hypertension, CKD. PAST SURGICAL HISTORY: Cholecystectomy, multiple back surgeries. HOME MEDICATIONS: Carvedilol, prednisone, fluoxetine, glyburide, aspirin, coenzyme Q10, Ventolin, po tassium chloride, Brilinta, Crestor, metolazone, amiodarone, Otezla, budesonide, Breo, torsemide, gli pizide, clobetasol. ALLERGIES: No known drug allergies. FAMILY HISTORY: No history of any kidney disease. SOCIAL HISTORY: No smoking, alcohol, or illicit drug abuse. He is a former smoker. REVIEW OF SYSTEMS: The following complete review of systems was negative, unless otherwise mentioned in the HPI or below: Constitutional: Weight loss or gain, ability to conduct usual activities. Skin: Rash, itching. Eyes: Double vision, pain. ENT/Mouth: Nose bleeding, neck stiffness, pain, tenderness. Cardiovascular: Palpitations, dyspnea on exertion, orthopnea. Respiratory: Shortness of breath, wheezing, cough, hemoptysis, fever, or night sweats. Gastrointestinal: Poor appetite, abdominal pain, heartburn, nausea, vomiting, constipation, or diarr hea. Genitourinary: Urgency, frequency, dysuria, nocturia. Musculoskeletal: Pain, swelling. Neurologic/Psychiatric: Anxiety, depression. Allergy/Immunologic: Skin rash, bleeding tendency. PHYSICAL EXAMINATION: GENERAL: Obese male in no apparent distress. VITAL SIGNS: Temperature 98.1, pulse 79, respiratory rate 18, blood pressure 146/96. HEENT: Atraumatic, normocephalic. Oral mucosa is moist. NECK: Supple, no masses. CARDIOVASCULAR: S1, S2 heard. Rate and rhythm are regular. RESPIRATORY: Clear. MUSCULOSKELETAL: 1+ edema. DERMATOLOGIC: No skin rash. NEUROLOGIC: Alert, awake. PSYCHIATRIC: Mood and affect normal. LABORATORY: Potassium is 3.7, BUN is 65, creatinine is 2.9. ASSESSMENT AND PLAN: 1. Acute kidney injury on chronic kidney disease stage 4. Renal function is stable. 2. Edema. 3. Cardiorenal syndrome. 4. Hypertension. 5. Morbid obesity. 6. Anemia. Overall, the patient's creatinine is slightly elevated with diuretics. Recheck labs in the morning. We will follow. Thank you for the consultation.
[2017-06-29 05:15] LABS: #Eosinphils 0.1 thou/uL (0.0-0.7); #Lymphocytes 5.3 thou/uL (1.20-3.40); #Monocytes 1.6 thou/uL (0.11-0.59); #Neutrophils 10.8 thou/uL (1.40-6.50); %Basophils 0.1 % (0.0-1.0); %Eosinophils 0.7 % (0.0-10.0); %Lymphocytes 29.7 % (21.0-51.0); %Neutrophils 60.4 % (42.0-75.0); Hemoglobin 11.7 g/dL (14.0-18.0); Mean Corpuscular HGB CONC 31.1 g/dL (32.0-36.0); Mean Corpuscular Hemoglobin 26.6 pg (27.0-31.0); Mean Corpuscular Volume 85.3 fl (80.0-94.0); Platelet Count 294 thou/uL (130-400); RBC Distribution Width 15.9 % (11.5-14.5); Red Blood Cell (RBC) Count 4.41 mill/uL (4.70-6.10); White Blood Cell (WBC) Count 17.9 thou/uL (4.8-10.8)
[2017-06-29 05:28] LABS: Anion Gap 14 mmol/L (10-20); BUN (Urea Nitrogen) 74 mg/dL (8.4-25.7); Calc. Creatinine Clearance 49 mL/min (70-130); Calcium 9.9 mg/dL (7.8-10.44); Carbon Dioxide 36 mmol/L (23-31); Chloride 92 mmol/L (98-107); Estimated GFR-MDRD 24; Glucose 69 mg/dL (83-110); Magnesium 2.8 mg/dL (1.6-2.6); Phosphorus 3.5 mg/dL (2.3-4.7); Potassium 3.1 mmol/L (3.5-5.1); Sodium 139 mmol/L (136-145)
[2017-06-29] MEDS: Polyethylene Glycol 3350 17 GM Packet PO SCH (08:36)
[2017-06-29] MEDS: TICAGRELOR 90 MG TABLET PO SCH ×2 (08:36→20:42)
[2017-06-29] MEDS: Valsartan 80 MG TAB PO SCH (08:36)
[2017-06-29] MEDS: Prenatal Vitamin 1 TAB PO SCH (08:36)
[2017-06-29] MEDS: glyBURIDE 5 MG TAB PO SCH (08:36)
[2017-06-29] MEDS: predniSONE 20 MG TAB PO SCH (08:37)
[2017-06-29] MEDS: Furosemide 80 MG TAB PO SCH (08:37)
[2017-06-29] MEDS: hydrALAZINE 25 MG TAB PO SCH ×3 (08:37→20:42)
[2017-06-29] MEDS: glipiZIDE 5 MG TAB PO SCH (08:37)
[2017-06-29] MEDS: Amiodarone 200 MG TAB PO SCH (08:38)
[2017-06-29] MEDS: guaiFENesin ER 600 MG TAB PO SCH ×2 (08:38→20:42)
[2017-06-29] MEDS: FLUoxetine HCl 20 MG CAP PO SCH ×3 (08:38→20:41)
[2017-06-29] MEDS ORDERED: cloNIDine 0.1 MG TAB PO SCH (10:00)
[2017-06-29] MEDS ORDERED: HumaLOG 300 UNITS/3 ML VIAL SC PRN (10:24)
--- NOTE | 2017-06-29 11:48 | PRG ---
DATE OF SERVICE: 06/29/2017 SUBJECTIVE: Patient was seen and examined at bedside and overnight events noted. Patient denies any shortness of breath or chest pain or palpitation. No history of nausea or vomitin g or diarrhea or fever or chills or cramps. OBJECTIVE: GENERAL: This is a morbidly male, in no apparent distress. VITAL SIGNS: Temperature 97.6, pulse 60, respiratory rate 18, blood pressure 188/64. HEENT: Atraumatic, normocephalic. Oral mucosa is moist NECK: Supple. CARDIOVASCULAR: S1 and S2 heard. Rate and rhythm regular. RESPIRATORY: Clear to auscultation. GASTROINTESTINAL: Abdomen is soft. MUSCULOSKELETAL: 1+ edema. DERMATOLOGIC: No skin rash. NEUROLOGIC: Alert and awake and oriented X3, No focal neurologic deficits. Moving all the extremitie s. PSYCHIATRIC: Mood and affect normal. LABORATORY DATA: Potassium is 3.1, BUN 74, creatinine is 2.6, bicarbonate is 36. ASSESSMENT AND PLAN: 1. Acute kidney injury on chronic kidney disease stage 4. Renal function is getting worse, most lik deepthi from diuresis, so he will follow with Pulmonology for further diuresis. 2. Edema, getting better. 3. Cardiorenal syndrome. 4. Hypertension. 5. Metabolic alkalosis secondary to diuresis. 6. Morbid obesity. 7. Anemia. 8. Hypokalemia, replaced and monitor. Plan is to monitor renal function. Follow with Pulmonology for diuretics. We will replace electroly brielle. We will follow.
--- NOTE | 2017-06-29 11:53 | PDOC.PN ---
- Subjective Encounter Start Date: 06/29/17 Encounter Start Time: 09:10 -: old records requested/rev Patient seen and examined. No new complaints. No overnight events - Objective Resuscitation Status: Resuscitation Status FULL:Full Resuscitation MAR Reviewed: Yes Vital Signs & Weight: Vital Signs (12 hours) Temp Pulse Resp BP BP Pulse Ox 06/29/17 10:27 71 16 93 L 06/29/17 08:37 60 188/64 H 06/29/17 08:00 97.6 F 60 24 H 188/64 H 94 L 06/29/17 07:24 61 16 93 L 06/29/17 00:00 98.1 F 60 20 143/62 H 92 L Weight Weight 314 lb 9.594 oz Most Recent Monitor Data Heart Rate from ECG 67 NIBP 119/54 NIBP BP-Mean 80 Respiration from ECG 20 SpO2 97 I&O: 06/28/17 06/29/17 06/30/17 06:59 06:59 06:59 Intake Total 2240 480 Output Total 1425 Balance 815 480 Result Diagrams: 06/29/17 03:26 06/29/17 03:26 Additional Labs: Accuchecks 06/29/17 06/29/17 06/28/17 06:43 05:45 20:38 POC Glucose 87 347 H 264 H 06/28/17 15:55 POC Glucose 289 H Phys Exam - Physical Examination Constitutional: NAD HEENT: PERRLA, moist MMs, sclera anicteric Neck: no nodes, no JVD, supple Respiratory: no wheezing, no rales, no rhonchi Cardiovascular: RRR, no significant murmur, no rub Gastrointestinal: soft, non-tender, no distention, positive bowel sounds Musculoskeletal: no edema, pulses present Neurological: non-focal, normal sensation Lymphatic: no nodes Psychiatric: normal affect, A&O x 3 Skin: no rash, normal turgor Dx/Plan (1) Acute on chronic diastolic (congestive) heart failure Code(s): I50.33 - ACUTE ON CHRONIC DIASTOLIC (CONGESTIVE) HEART FAILURE Status : Acute (2) Acute on chronic respiratory failure with hypoxia Code(s): J96.21 - ACUTE AND CHRONIC RESPIRATORY FAILURE WITH HYPOXIA Status: Acute (3) COPD exacerbation Code(s): J44.1 - CHRONIC OBSTRUCTIVE PULMONARY DISEASE W (ACUTE) EXACERBATION Status: Acute (4) CKD (chronic kidney disease) stage 4, GFR 15-29 ml/min Code(s): N18.4 - CHRONIC KIDNEY DISEASE, STAGE 4 (SEVERE) Status: Chronic (5) DM type 2 (diabetes mellitus, type 2) Status: Chronic (6) Dyslipidemia Code(s): E78.5 - HYPERLIPIDEMIA, UNSPECIFIED Status: Chronic (7) HTN (hypertension) Code(s): I10 - ESSENTIAL (PRIMARY) HYPERTENSION Status: Chronic (8) Morbid obesity with BMI of 40.0-44.9, adult Code(s): E66.01 - MORBID (SEVERE) OBESITY DUE TO EXCESS CALORIES; Z68.41 - BODY MASS INDEX (BMI) 40.0-44.9, ADULT Status: Chronic (9) Paroxysmal atrial fibrillation Code(s): I48.0 - PAROXYSMAL ATRIAL FIBRILLATION Status: Chronic Comment: (10) Rheumatoid arthritis Code(s): M06.9 - RHEUMATOID ARTHRITIS, UNSPECIFIED Status: Chronic Qualifiers: Comment: (11) Sleep apnea, obstructive Code(s): G47.33 - OBSTRUCTIVE SLEEP APNEA (ADULT) (PEDIATRIC) Status: Chronic - Plan cont current plan of care, PT/OT, social media analyst * pt has significant improvement * now he is waiting for rehab placement * meanwhile will continue current optimum medical therapy for COPD and CHF * continue cpap as needed * medication reviewed as below * symptomatic treatment * all consultants recommendation noted. Review of Systems - Review of Systems ENT: negative: Ear Pain, Ear Discharge, Nose Pain, Nose Discharge, Nose Congestion, Mouth Pain, Mouth Swelling, Throat Pain, Throat Swelling, Other Respiratory: negative: Cough, Dry, Shortness of Breath, Hemoptysis, SOB with Excertion, Pleuritic Pain, Sputum, Wheezing Cardiovascular: negative: chest pain, palpitations, orthopnea, paroxysmal nocturnal dyspnea, edema, light headedness, other Gastrointestinal: negative: Nausea, Vomiting, Abdominal Pain, Diarrhea, Constipation, Melena, Hematochezia, Other Genitourinary: negative: Dysuria, Frequency, Incontinence, Hematuria, Retention , Other Musculoskeletal: negative: Neck Pain, Shoulder Pain, Arm Pain, Back Pain, Hand Pain, Leg Pain, Foot Pain, Other Skin: negative: Rash, Lesions, Kofi, Bruising, Other - Medications/Allergies Allergies/Adverse Reactions: Allergies Allergy/AdvReac Type Severity Reaction Status Date / Time No Known Allergies Allergy Verified 07/22/16 02:17 Medications: Current Medications Albuterol/Ipratropium (Duoneb) 3 ml NEB [id number] [facility] Last Admin: 06/29/17 07:24 Dose: 3 ml Albuterol/Ipratropium (Duoneb) 3 ml NEB [id number] PRN PRN Reason: SOB &/or Wheezing Last Admin: 06/26/17 09:58 Dose: 3 ml Amiodarone HCl (Cordarone) 200 mg PO DAILY [facility] Last Admin: 06/29/17 08:38 Dose: 200 mg Aspirin (Aspirin Chewable) 81 mg PO MoWeFr@0900 [facility] Last Admin: 06/29/17 08:37 Dose: 81 mg Bisacodyl (Dulcolax) 10 mg PO DAILYPRN PRN PRN Reason: Constipation Cholecalciferol (Vitamin D3) 2,000 units PO DAILY [facility] Last Admin: 06/29/17 08:36 Dose: 2,000 units Clonidine (Catapres) 0.1 mg PO Q6H PRN PRN Reason: FOR SBP > 180 Clonidine (Catapres) 0.1 mg PO BID [facility] Clonidine (Catapres) 0.1 mg PO 1000 [facility] Stop: 06/29/17 12:00 Coenzyme Q10 (Coenzyme Q10) 100 mg PO HS [facility] Last Admin: 06/28/17 23:01 Dose: 100 mg Dextrose/Water (Dextrose 50%) 25 gm SLOW IVP PRN PRN PRN Reason: Hypoglycemia Enoxaparin Sodium (Lovenox) 40 mg SC 2100 [facility] Last Admin: 06/28/17 20:37 Dose: 40 mg Fluoxetine HCl (Prozac) 20 mg PO TID [facility] Last Admin: 06/29/17 08:38 Dose: 20 mg Glipizide (Glucotrol) 5 mg PO DAILY [facility] Last Admin: 06/29/17 08:37 Dose: 5 mg Glucagon (Glucagon) 1 mg IM PRN PRN PRN Reason: Hypoglycemia Glyburide (Diabeta) 5 mg PO DAILY [facility] Last Admin: 06/29/17 08:36 Dose: 5 mg Guaifenesin (Mucinex) 1,200 mg PO Q12HR [facility] Last Admin: 06/29/17 08:38 Dose: 1,200 mg Hydralazine HCl (Apresoline) 20 mg SLOW IVP Q6H PRN PRN Reason: SBP > 180 Last Admin: 06/26/17 15:41 Dose: 20 mg Hydralazine HCl (Apresoline) 50 mg PO TID [facility] Last Admin: 06/29/17 08:37 Dose: 50 mg Hydrocortisone Sodium Succinate (Proctozone-Hc 2.5% Cream) 1 gm TOP BID PRN PRN Reason: Hemorrhoids Dextrose/Water (D5w) 1,000 mls @ 0 mls/hr IV .Q0M PRN; As Directed PRN Reason: Hypoglycemia Insulin Human Lispro (Humalog) 0 units SC .MODERATE SLIDING SC PRN PRN Reason: Moderate Correctional Scale Insulin Human Lispro (Humalog) 0 units SC .BEDTIME SLIDING SC PRN PRN Reason: Bedtime Correctional Scale Isosorbide Mononitrate (Imdur) 120 mg PO DAILY [facility] Last Admin: 06/29/17 08:37 Dose: 120 mg Loratadine (Claritin) 10 mg PO [facility] Last Admin: 06/28/17 20:39 Dose: 10 mg Polyethylene Glycol (Miralax) 17 gm PO DAILY [facility] Last Admin: 06/29/17 08:36 Dose: 17 gm Prednisone (Prednisone) 40 mg PO 0800 [facility] Last Admin: 06/29/17 08:37 Dose: 40 mg Multivit/Folic Acid/Iron ( Vitamin) 1 tab PO DAILY [facility] Last Admin: 06/29/17 08:36 Dose: 1 tab Rosuvastatin Calcium (Crestor) 20 mg PO HS [facility] Last Admin: 06/28/17 20:37 Dose: 20 mg Ticagrelor (Brilinta) 90 mg PO BID [facility] Last Admin: 06/29/17 08:36 Dose: 90 mg
[2017-06-29] MEDS: HumaLOG 300 UNITS/3 ML VIAL SC PRN ×2 (13:07→17:27)
[2017-06-29] MEDS ORDERED: Sodium Chloride 0.9% 500 ML IV SCH (14:00)
[2017-06-29] MEDS: cloNIDine 0.1 MG TAB PO SCH (20:41)
[2017-06-29] MEDS: Enoxaparin Sodium 40 MG/0.4 ML SYRINGE SC SCH (20:41)
[2017-06-29] MEDS: Ubidecarenone 50 MG CAP PO SCH (20:42)
[2017-06-29] MEDS: Loratadine 10 MG TAB PO SCH (20:42)
[2017-06-29] MEDS: Rosuvastatin 20 MG TAB PO SCH (20:42)
[2017-06-30 05:41] LABS: #Eosinphils 0.1 thou/uL (0.0-0.7); #Lymphocytes 3.8 thou/uL (1.20-3.40); #Monocytes 1.1 thou/uL (0.11-0.59); #Neutrophils 8.8 thou/uL (1.40-6.50); %Basophils 0.1 % (0.0-1.0); %Eosinophils 0.8 % (0.0-10.0); %Lymphocytes 27.2 % (21.0-51.0); %Monocytes 7.9 % (0.0-10.0); %Neutrophils 63.9 % (42.0-75.0); Hemoglobin 11.8 g/dL (14.0-18.0); Mean Corpuscular HGB CONC 32.6 g/dL (32.0-36.0); Mean Corpuscular Hemoglobin 27.8 pg (27.0-31.0); Mean Corpuscular Volume 85.3 fl (80.0-94.0); Mean Platelet Volume 7.7 fL (7.4-10.4); Platelet Count 247 thou/uL (130-400); RBC Distribution Width 15.6 % (11.5-14.5); Red Blood Cell (RBC) Count 4.23 mill/uL (4.70-6.10); White Blood Cell (WBC) Count 13.8 thou/uL (4.8-10.8)
[2017-06-30 05:50] LABS: BUN (Urea Nitrogen) 70 mg/dL (8.4-25.7); Calc. Creatinine Clearance 53 mL/min (70-130); Calcium 9.8 mg/dL (7.8-10.44); Estimated GFR-MDRD 26; Glucose 74 mg/dL (83-110); Magnesium 2.8 mg/dL (1.6-2.6); Phosphorus 3.7 mg/dL (2.3-4.7)
[2017-06-30 06:01] LABS: Anion Gap 17 mmol/L (10-20); Carbon Dioxide 33 mmol/L (23-31); Chloride 94 mmol/L (98-107); Potassium 3.2 mmol/L (3.5-5.1); Sodium 141 mmol/L (136-145)
--- NOTE | 2017-06-30 08:50 | PRG ---
DATE OF SERVICE: 06/29/2017 SERVICE: Pulmonary Medicine INTERVAL HISTORY: The patient did very poorly this morning. He woke up coughing and choking. Once he got a little bit of sputum up, he settled down a little bit. He is using his BiPAP presently. He denies any current fevers, chills, nausea, vomiting or chest discomfort. PHYSICAL EXAMINATION: VITAL SIGNS: Afebrile, pulse 79, blood pressure 137/55, respirations 18, saturation 96% on 3 liters nasal cannula. GENERAL: The patient is awake, alert, in no apparent distress. LUNGS: Decent air entry. There is a prolonged expiratory phase. Wheezing and rhonchi are both pres ent. I do not appreciate crackles today. HEART: Normal rate, regular. ABDOMEN: Soft, nontender, nondistended. Bowel sounds are positive. MUSCULOSKELETAL: No cyanosis or clubbing. There is no pitting in the right lower extremity. There is 2+ pitting in the left lower extremity. GENITOURINARY: No Polk catheter. NEUROLOGIC: Grossly nonfocal. LABORATORY DATA: WBC 17.9, hemoglobin 11.7, platelets 294,000. Creatinine 2.61, BUN 74. Bicarb is increased to 36, potassium 3.1. Magnesium is 2.8. ASSESSMENT: 1. Acute on chronic hypoxic and hypercapnic respiratory failure. 2. Chronic obstructive pulmonary disease with acute exacerbation secondary to respiratory syncytial virus D. 3. Chronic diastolic heart failure, currently close to euvolemic: 4. Pulmonary hypertension, multifactorial. 5. Obstructive sleep apnea. 6. Acute kidney injury on chronic kidney disease secondary to prerenal azotemia. PLAN: I agree with stopping the Lasix for the time being. I will give him a 500 mL bolus of normal saline. Hopefully, this is more of a prerenal azotemia with contraction alkalosis as opposed to true kidney injury, Pulmonary Critical Care will continue to follow for the time being, but certainly th e patient is not in a place where he is ready for discharge from this hospital yet.
[2017-06-30] MEDS ORDERED: Torsemide 100 MG TAB PO SCH (09:00)
[2017-06-30] MEDS: TICAGRELOR 90 MG TABLET PO SCH ×2 (09:22→20:16)
[2017-06-30] MEDS: Prenatal Vitamin 1 TAB PO SCH (09:22)
[2017-06-30] MEDS: glyBURIDE 5 MG TAB PO SCH (09:23)
[2017-06-30] MEDS: glipiZIDE 5 MG TAB PO SCH (09:23)
[2017-06-30] MEDS: cloNIDine 0.1 MG TAB PO SCH ×2 (09:23→20:12)
[2017-06-30] MEDS: guaiFENesin ER 600 MG TAB PO SCH ×2 (09:24→20:15)
[2017-06-30] MEDS: FLUoxetine HCl 20 MG CAP PO SCH ×3 (09:24→20:15)
[2017-06-30] MEDS: hydrALAZINE 25 MG TAB PO SCH ×3 (09:24→20:15)
[2017-06-30] MEDS: predniSONE 20 MG TAB PO SCH (09:24)
[2017-06-30] MEDS: Amiodarone 200 MG TAB PO SCH (09:24)
[2017-06-30] MEDS: Polyethylene Glycol 3350 17 GM Packet PO SCH (09:24)
[2017-06-30 09:32] VITALS: BMI 41.5
--- NOTE | 2017-06-30 11:16 | PDOC.PN ---
- Subjective Encounter Start Date: 06/30/17 Encounter Start Time: 14:00 Subjective: On CPAP after lunch. Breathing slightly better. Cleared ST eval. - Objective Resuscitation Status: Resuscitation Status FULL:Full Resuscitation MAR Reviewed: Yes Vital Signs & Weight: Vital Signs (12 hours) Temp Pulse Resp BP BP BP Pulse Ox 06/30/17 09:24 78 127/54 L 06/30/17 09:23 127/54 L 06/30/17 08:00 97.7 F 78 26 H 127/54 L 94 L 06/30/17 07:45 93 16 96 06/30/17 05:00 97.7 F 67 22 H 112/66 97 Weight Admit Weight 338 lb Weight 314 lb 9.594 oz Most Recent Monitor Data Heart Rate from ECG 67 NIBP 119/54 NIBP BP-Mean 80 Respiration from ECG 20 SpO2 97 I&O: 06/29/17 06/30/17 07/01/17 06:59 06:59 06:59 Intake Total 480 930 Balance 480 930 Result Diagrams: 06/30/17 05:03 06/30/17 05:03 Additional Labs: Accuchecks 06/30/17 06/29/17 06/29/17 05:19 21:31 16:35 POC Glucose 90 185 H 295 H 06/29/17 11:53 POC Glucose 196 H Phys Exam - Physical Examination Constitutional: NAD HEENT: moist MMs Respiratory: no rales, no rhonchi, wheezing present tight breath sounds bilaterally Cardiovascular: RRR, no significant murmur Gastrointestinal: soft, positive bowel sounds obese Musculoskeletal: no edema Neurological: non-focal, moves all 4 limbs Psychiatric: normal affect, A&O x 3 Dx/Plan (1) Acute and chronic respiratory failure Code(s): J96.20 - ACUTE AND CHR RESP FAILURE, UNSP W HYPOXIA OR HYPERCAPNIA Status: Chronic Qualifiers: Respiratory failure complication: hypoxia and hypercapnia Qualified Code(s) : J96.21 - Acute and chronic respiratory failure with hypoxia; J96.22 - Acute and chronic respiratory failure with hypercapnia; J96.22 - Acute and chronic respiratory failure with hypercapnia; J96.22 - Acute and chronic respiratory failure with hypercapnia (2) Diastolic CHF, acute on chronic Code(s): I50.33 - ACUTE ON CHRONIC DIASTOLIC (CONGESTIVE) HEART FAILURE Status : Chronic Comment: suspect diastolic dysfunction due to hypertensive crisis. (3) COPD with acute exacerbation Code(s): J44.1 - CHRONIC OBSTRUCTIVE PULMONARY DISEASE W (ACUTE) EXACERBATION Status: Chronic Comment: cont steroids, nebs, Bipap at night (4) Hypertension Code(s): I10 - ESSENTIAL (PRIMARY) HYPERTENSION Status: Deleted (5) Morbid obesity Code(s): E66.01 - MORBID (SEVERE) OBESITY DUE TO EXCESS CALORIES Status: Chronic (6) CKD (chronic kidney disease) Code(s): N18.9 - CHRONIC KIDNEY DISEASE, UNSPECIFIED Status: Chronic (7) DM type 2 (diabetes mellitus, type 2) Status: Chronic (8) Paroxysmal atrial fibrillation Code(s): I48.0 - PAROXYSMAL ATRIAL FIBRILLATION Status: Chronic Comment: (9) Sleep apnea, obstructive Code(s): G47.33 - OBSTRUCTIVE SLEEP APNEA (ADULT) (PEDIATRIC) Status: Chronic - Plan cont current plan of care acute worsening of renal failure, Lasix held and small amount of IV fluids * . - Discharge Day Encounter end time: 14:30
--- NOTE | 2017-06-30 11:44 | PRG ---
Patient Name: BENNY STEELE Date of service: 06/30/2017 Subjective: Patient was seen and examined at bedside and overnight events noted. Patient denies any shortness of breath or chest pain or palpitation. No history of nausea or vomiting or diarrhea or fever or chills or cramps. Objective: General: This is a morbidly obese male in no apparent distress. Vital signs: Temperature 97.7, pulse 70, respiratory rate 16, blood pressure 127/54. HEENT: Atraumatic, normocephalic. Oral mucosa is moist. Neck: Supple. Cardiovascular: S1 S2 heard. Rate and rhythm regular. Respiratory: Clear to auscultation. Gastrointestinal: Abdomen is soft. Musculoskeletal: No tenderness. No edema. Dermatologic: No skin rash. Neurologic: Alert and awake and oriented X3. No focal neurologic deficits. Moving all the extremities. Psychiatric: Mood and affect normal. LABORATORY DATA: Potassium 3.2, BUN 70, creatinine is 2.4. ASSESSMENT AND PLAN: 1. Acute kidney injury on chronic kidney disease. Creatinine seems to better. 2. Edema with cardiorenal syndrome on diuretics, diuretics on hold. 3. Metabolic alkalosis. 4. Morbid obesity. 5. Anemia. 6. Hypokalemia, replace and monitor. Renal function is stable. We will follow.
--- NOTE | 2017-06-30 16:50 | PRG ---
DATE OF SERVICE: 06/30/2017 SERVICE: Pulmonary Medicine. INTERVAL HISTORY: The patient is doing really well from a respiratory standpoint. Today, he is doin g much better than yesterday. He continues to cough and is bringing up a little bit of yellow sputum . He does not have nearly as much conversational dyspnea and is not using his BiPAP for now as neede d purpose at this time. OBJECTIVE: VITAL SIGNS: Afebrile, pulse 78, blood pressure 111/60, respirations 20, saturation 95% on 3 liters nasal cannula. GENERAL: The patient is awake, alert, in no apparent distress. LUNGS: Decreased air entry with prolonged expiratory phase. Rhonchi and wheezing are both present. I do not appreciate crackles. HEART: Normal rate, regular. ABDOMEN: Soft, nontender, nondistended. Bowel sounds are positive. MUSCULOSKELETAL: No cyanosis or clubbing. There is 1+ pitting in the right lower extremity, no adrianna ing in the left lower extremity. GENITOURINARY: No Polk. NEUROLOGIC: Grossly nonfocal. LABORATORY DATA: WBC 13.8, hemoglobin 11.8, platelets 247,000. D-dimer 0.51. Creatinine 2.41 and n icely down trending, BUN is 70 and stable. Basic metabolic profile is otherwise unremarkable. Potas sium 3.2. Magnesium 2.8, phosphorus 3.7. ASSESSMENT: 1. Acute on chronic hypoxic and hypercapnic respiratory failure. 2. Chronic obstructive pulmonary disease with acute exacerbation secondary to respiratory syncytial virus. 3. Chronic diastolic heart failure, currently nearly almost euvolemic. 4. Pulmonary hypertension, multifactorial. 5. Obstructive sleep apnea, severe. 6. Acute kidney injury on chronic kidney disease secondary to prerenal azotemia, improving. PLAN: The patient will need to stay in the hospital for 24-48 additional hours, but if he continues to make improvement, he will be stable for transition out of the hospital. Once his kidney injury re covers, we will need to reinitiate his home doses of Lasix. I do not think he is finally turning the corner from his respiratory illness and hopefully, he will make stepwise improvements over the next day or two. Pulmonary will continue to follow.
[2017-06-30] MEDS ORDERED: Diprivan 40 ML ONE (16:53)
[2017-06-30] MEDS: HumaLOG 300 UNITS/3 ML VIAL SC PRN (18:02)
[2017-06-30] MEDS: Enoxaparin Sodium 40 MG/0.4 ML SYRINGE SC SCH (20:15)
[2017-06-30] MEDS: Loratadine 10 MG TAB PO SCH (20:15)
[2017-06-30] MEDS: Rosuvastatin 20 MG TAB PO SCH (20:15)
[2017-06-30] MEDS: Ubidecarenone 50 MG CAP PO SCH (20:16)
[2017-07-01 04:14] LABS: #Eosinphils 0.1 thou/uL (0.0-0.7); #Lymphocytes 2.4 thou/uL (1.20-3.40); #Monocytes 0.9 thou/uL (0.11-0.59); #Neutrophils 6.5 thou/uL (1.40-6.50); %Basophils 0.1 % (0.0-1.0); %Eosinophils 0.6 % (0.0-10.0); %Lymphocytes 23.9 % (21.0-51.0); %Monocytes 9.5 % (0.0-10.0); %Neutrophils 65.8 % (42.0-75.0); Hemoglobin 10.6 g/dL (14.0-18.0); Mean Corpuscular HGB CONC 32.1 g/dL (32.0-36.0); Mean Corpuscular Hemoglobin 27.5 pg (27.0-31.0); Mean Corpuscular Volume 85.6 fl (80.0-94.0); Mean Platelet Volume 7.8 fL (7.4-10.4); Platelet Count 209 thou/uL (130-400); RBC Distribution Width 15.7 % (11.5-14.5); Red Blood Cell (RBC) Count 3.86 mill/uL (4.70-6.10); White Blood Cell (WBC) Count 9.9 thou/uL (4.8-10.8)
[2017-07-01 04:30] LABS: BUN (Urea Nitrogen) 68 mg/dL (8.4-25.7); Calc. Creatinine Clearance 56 mL/min (70-130); Calcium 9.5 mg/dL (7.8-10.44); Estimated GFR-MDRD 28; Glucose 85 mg/dL (83-110); Magnesium 2.7 mg/dL (1.6-2.6); Phosphorus 3.8 mg/dL (2.3-4.7)
[2017-07-01 04:38] LABS: Anion Gap 17 mmol/L (10-20); Carbon Dioxide 35 mmol/L (23-31); Chloride 95 mmol/L (98-107); Potassium 3.5 mmol/L (3.5-5.1); Sodium 143 mmol/L (136-145)
[2017-07-01] MEDS: glyBURIDE 5 MG TAB PO SCH (10:21)
[2017-07-01] MEDS: Polyethylene Glycol 3350 17 GM Packet PO SCH (10:21)
[2017-07-01] MEDS: predniSONE 20 MG TAB PO SCH (10:22)
[2017-07-01] MEDS: glipiZIDE 5 MG TAB PO SCH (10:22)
[2017-07-01] MEDS: TICAGRELOR 90 MG TABLET PO SCH ×2 (10:22→21:31)
[2017-07-01] MEDS: guaiFENesin ER 600 MG TAB PO SCH ×2 (10:22→21:32)
[2017-07-01] MEDS: Prenatal Vitamin 1 TAB PO SCH (10:22)
[2017-07-01] MEDS: FLUoxetine HCl 20 MG CAP PO SCH ×3 (10:22→21:31)
[2017-07-01] MEDS: Amiodarone 200 MG TAB PO SCH (10:23)
[2017-07-01] MEDS: cloNIDine 0.1 MG TAB PO SCH ×2 (10:24→21:31)
[2017-07-01] MEDS: hydrALAZINE 25 MG TAB PO SCH ×3 (10:24→21:32)
[2017-07-01] MEDS: Torsemide 100 MG TAB PO SCH ×2 (10:25→15:37)
--- NOTE | 2017-07-01 11:38 | PRG ---
Patient Name: BENNY STEELE Date of service: 07/01/2017 Subjective: Patient was seen and examined at bedside and overnight events noted. Patient denies any shortness of breath or chest pain or palpitation. No history of nausea or vomiting or diarrhea or fever or chills or cramps. Objective: General: This is an elderly male in no apparent distress. Vital signs: Temperature 97, pulse 82, respiratory rate 24, blood pressure 106/43. HEENT: Atraumatic, normocephalic. Oral mucosa is moist. Neck: Supple. Cardiovascular: S1 S2 heard. Rate and rhythm regular. Respiratory: Clear to auscultation. Gastrointestinal: Abdomen is soft. Musculoskeletal: No tenderness. 1+ edema. Dermatologic: No skin rash. Neurologic: Alert and awake and oriented X3. No focal neurologic deficits. Moving all the extremit ies. Psychiatric: Mood and affect normal. LABORATORY DATA: Potassium 3.5, BUN 68, creatinine is 2.3. ASSESSMENT AND PLAN: 1. Acute kidney injury on chronic kidney disease. Renal function is stable, slowly getting better. 2. Edema with cardiorenal syndrome. 3. Metabolic acidosis. 4. Morbid obesity. 5. Anemia. 6. Hypokalemia. Renal function is stable. We will follow along with the other consultants.
--- NOTE | 2017-07-01 13:37 | PRG ---
DATE OF SERVICE: 07/01/2017 SERVICE: Pulmonary Medicine INTERVAL HISTORY: The patient is doing really well today from a respiratory standpoint. He really f eels like he started to turn the corner. He feels much improved today compared to yesterday morning. That being said, he still has some fear about transitioning out of the hospital. There has been ot herwise no change in his condition. He had no overnight events. PHYSICAL EXAMINATION: VITAL SIGNS: Afebrile, pulse 69, blood pressure 161/60, respirations 24, saturation 92% on 3 liters nasal cannula. GENERAL: Patient is awake, alert, no apparent distress. LUNGS: Decent air entry. There is no prolonged expiratory phase, wheezing, rhonchi, or crackles tod ay. HEART: Normal rate, regular. ABDOMEN: Soft, nontender, nondistended. Bowel sounds are positive. EXTREMITIES: His air entry has improved dramatically. GENITOURINARY: No Polk. NEUROLOGIC: Grossly nonfocal. LABORATORY DATA: WBC 9.9, hemoglobin 10.6, platelets 209,000. Creatinine 2.31, which continues to i mprove. BUN 68 and down trending. Basic metabolic profile is otherwise unremarkable. Magnesium 2.7 , phosphorus 3.8, potassium is 3.5. ASSESSMENT: 1. Acute on chronic hypoxic and hypercapnic respiratory failure, improving. 2. Chronic obstructive pulmonary disease with acute exacerbation secondary to respiratory syncytial virus B. 3. Chronic diastolic heart failure, currently euvolemic. 4. Pulmonary hypertension, multifactorial. 5. Obstructive sleep apnea, severe. 6. Acute kidney injury on chronic kidney disease secondary to prerenal azotemia, improving. DISCUSSION AND PLAN: The patient is requesting to stay in the hospital because he is actually afraid at this point to go home. He does feel, however, that he has turned the corner and has improved estefanía matically since 3 days ago. We will continue our supportive care here including antibiotics, steroid s and nebulized medication. On discharge from the hospital, his home dose of Lasix will likely need to be continued. I do think we got him a touch dry here, resulting in his prerenal azotemia, which i s comfortably resolving at this time. Laboratory holiday will be provided tomorrow morning. Pulmona ry Critical Care will continue to follow if he remains in this location, but from my perspective, he is stable for transition to the rehabilitation facility.
[2017-07-01] MEDS: HumaLOG 300 UNITS/3 ML VIAL SC PRN ×2 (18:24→21:32)
--- NOTE | 2017-07-01 18:51 | PDOC.PN ---
- Subjective Encounter Start Date: 07/01/17 Encounter Start Time: 09:20 Pt seen for followup re: acute on chronic respiratory failure. Reports feeling better. SOBOE better. - Objective Resuscitation Status: Resuscitation Status FULL:Full Resuscitation MAR Reviewed: Yes Vital Signs & Weight: Vital Signs (12 hours) Temp Pulse Resp BP BP Pulse Ox 07/01/17 16:31 98.0 F 76 22 H 166/74 H 91 L 07/01/17 15:38 69 07/01/17 11:44 97.7 F 69 24 H 161/60 H 92 L 07/01/17 10:24 82 106/43 L 07/01/17 08:00 97.5 F L 82 24 H 91 L 07/01/17 07:59 97.5 F L 82 24 H 106/43 L 91 L Weight Admit Weight 338 lb Weight 315 lb Most Recent Monitor Data Heart Rate from ECG 67 NIBP 119/54 NIBP BP-Mean 80 Respiration from ECG 20 SpO2 97 I&O: 06/30/17 07/01/17 07/02/17 06:59 06:59 06:59 Intake Total 930 720 Balance 930 720 Result Diagrams: 07/01/17 03:54 07/01/17 03:54 Additional Labs: Accuchecks 07/01/17 07/01/17 06/30/17 16:40 11:44 20:12 POC Glucose 300 H 116 H 287 H Phys Exam - Physical Examination Morbid obesity HEENT: moist MMs Neck: supple Respiratory: clear to auscultation bilateral Cardiovascular: RRR Gastrointestinal: soft Musculoskeletal: pulses present Neurological: moves all 4 limbs Psychiatric: normal affect Skin: no rash Dx/Plan (1) Acute and chronic respiratory failure Code(s): J96.20 - ACUTE AND CHR RESP FAILURE, UNSP W HYPOXIA OR HYPERCAPNIA Status: Acute Qualifiers: Respiratory failure complication: hypoxia and hypercapnia Qualified Code(s) : J96.21 - Acute and chronic respiratory failure with hypoxia; J96.22 - Acute and chronic respiratory failure with hypercapnia; J96.22 - Acute and chronic respiratory failure with hypercapnia; J96.22 - Acute and chronic respiratory failure with hypercapnia (2) COPD exacerbation Code(s): J44.1 - CHRONIC OBSTRUCTIVE PULMONARY DISEASE W (ACUTE) EXACERBATION Status: Acute (3) CKD (chronic kidney disease) Code(s): N18.9 - CHRONIC KIDNEY DISEASE, UNSPECIFIED Status: Chronic (4) Multi-vessel coronary artery stenosis Code(s): I25.10 - ATHSCL HEART DISEASE OF [place] CORONARY ARTERY W/O ANG PCTRS Status: Deleted (5) DM type 2 (diabetes mellitus, type 2) Status: Chronic (6) Dyslipidemia Code(s): E78.5 - HYPERLIPIDEMIA, UNSPECIFIED Status: Chronic (7) Paroxysmal atrial fibrillation Code(s): I48.0 - PAROXYSMAL ATRIAL FIBRILLATION Status: Chronic Comment: (8) Sleep apnea, obstructive Code(s): G47.33 - OBSTRUCTIVE SLEEP APNEA (ADULT) (PEDIATRIC) Status: Chronic - Plan PT/OT, out of bed/ambulate * . Continue oxygen, steroids, bronchodilators. Continue torsemide. Ambulate patient. Review of Systems - Review of Systems Respiratory: Cough, SOB with Excertion. negative: Dry, Shortness of Breath, Hemoptysis, Pleuritic Pain, Sputum, Wheezing Cardiovascular: negative: chest pain, palpitations, orthopnea, paroxysmal nocturnal dyspnea, edema, light headedness - Medications/Allergies Allergies/Adverse Reactions: Allergies Allergy/AdvReac Type Severity Reaction Status Date / Time No Known Allergies Allergy Verified 07/22/16 02:17 Medications: Current Medications Albuterol/Ipratropium (Duoneb) 3 ml NEB [id number] [facility] Last Admin: 07/01/17 11:58 Dose: 3 ml Albuterol/Ipratropium (Duoneb) 3 ml NEB [id number] PRN PRN Reason: SOB &/or Wheezing Last Admin: 06/26/17 09:58 Dose: 3 ml Amiodarone HCl (Cordarone) 200 mg PO DAILY [facility] Last Admin: 07/01/17 10:23 Dose: 200 mg Aspirin (Aspirin Chewable) 81 mg PO MoWeFr@0900 [facility] Last Admin: 07/01/17 10:22 Dose: 81 mg Bisacodyl (Dulcolax) 10 mg PO DAILYPRN PRN PRN Reason: Constipation Cholecalciferol (Vitamin D3) 2,000 units PO DAILY [facility] Last Admin: 07/01/17 10:21 Dose: 2,000 units Clonidine (Catapres) 0.1 mg PO Q6H PRN PRN Reason: FOR SBP > 180 Clonidine (Catapres) 0.1 mg PO BID [facility] Last Admin: 07/01/17 10:24 Dose: Not Given Coenzyme Q10 (Coenzyme Q10) 100 mg PO HS [facility] Last Admin: 06/30/17 20:16 Dose: 100 mg Dextrose/Water (Dextrose 50%) 25 gm SLOW IVP PRN PRN PRN Reason: Hypoglycemia Enoxaparin Sodium (Lovenox) 40 mg SC 2100 [facility] Last Admin: 06/30/17 20:15 Dose: 40 mg Fluoxetine HCl (Prozac) 20 mg PO TID [facility] Last Admin: 07/01/17 15:37 Dose: 20 mg Glipizide (Glucotrol) 5 mg PO DAILY [facility] Last Admin: 07/01/17 10:22 Dose: 5 mg Glucagon (Glucagon) 1 mg IM PRN PRN PRN Reason: Hypoglycemia Glyburide (Diabeta) 5 mg PO DAILY [facility] Last Admin: 07/01/17 10:21 Dose: 5 mg Guaifenesin (Mucinex) 1,200 mg PO Q12HR [facility] Last Admin: 07/01/17 10:22 Dose: 1,200 mg Hydralazine HCl (Apresoline) 20 mg SLOW IVP Q6H PRN PRN Reason: SBP > 180 Last Admin: 06/26/17 15:41 Dose: 20 mg Hydralazine HCl (Apresoline) 50 mg PO TID [facility] Last Admin: 07/01/17 15:38 Dose: Not Given Hydrocortisone Sodium Succinate (Proctozone-Hc 2.5% Cream) 1 gm TOP BID PRN PRN Reason: Hemorrhoids Dextrose/Water (D5w) 1,000 mls @ 0 mls/hr IV .Q0M PRN; As Directed PRN Reason: Hypoglycemia Insulin Human Lispro (Humalog) 0 units SC .MODERATE SLIDING SC PRN PRN Reason: Moderate Correctional Scale Last Admin: 07/01/17 18:24 Dose: 6 unit Insulin Human Lispro (Humalog) 0 units SC .BEDTIME SLIDING SC PRN PRN Reason: Bedtime Correctional Scale Last Admin: 06/30/17 20:20 Dose: 3 unit Isosorbide Mononitrate (Imdur) 120 mg PO DAILY [facility] Last Admin: 07/01/17 10:23 Dose: 120 mg Loratadine (Claritin) 10 mg PO HS [facility] Last Admin: 06/30/17 20:15 Dose: 10 mg Polyethylene Glycol (Miralax) 17 gm PO DAILY [facility] Last Admin: 07/01/17 10:21 Dose: 17 gm Prednisone (Prednisone) 40 mg PO 0800 [facility] Last Admin: 07/01/17 10:22 Dose: 40 mg Multivit/Folic Acid/Iron ( Vitamin) 1 tab PO DAILY [facility] Last Admin: 07/01/17 10:22 Dose: 1 tab Rosuvastatin Calcium (Crestor) 20 mg PO [facility] Last Admin: 06/30/17 20:15 Dose: 20 mg Ticagrelor (Brilinta) 90 mg PO BID [facility] Last Admin: 07/01/17 10:22 Dose: 90 mg Torsemide (Demadex) 100 mg PO 0900,1400 [facility] Last Admin: 07/01/17 15:37 Dose: 100 mg
[2017-07-01] MEDS: Rosuvastatin 20 MG TAB PO SCH (21:31)
[2017-07-01] MEDS: Ubidecarenone 50 MG CAP PO SCH (21:31)
[2017-07-01] MEDS: Enoxaparin Sodium 40 MG/0.4 ML SYRINGE SC SCH (21:32)
[2017-07-01] MEDS: Loratadine 10 MG TAB PO SCH (21:32)
[2017-07-02] MEDS: Polyethylene Glycol 3350 17 GM Packet PO SCH (08:07)
[2017-07-02] MEDS: Amiodarone 200 MG TAB PO SCH (08:08)
[2017-07-02] MEDS: Torsemide 100 MG TAB PO SCH ×2 (08:08→14:58)
[2017-07-02] MEDS: guaiFENesin ER 600 MG TAB PO SCH ×2 (08:08→20:22)
[2017-07-02] MEDS: hydrALAZINE 25 MG TAB PO SCH ×3 (08:09→20:22)
[2017-07-02] MEDS: glyBURIDE 5 MG TAB PO SCH (08:09)
[2017-07-02] MEDS: predniSONE 20 MG TAB PO SCH (08:09)
[2017-07-02] MEDS: FLUoxetine HCl 20 MG CAP PO SCH ×3 (08:09→20:22)
[2017-07-02] MEDS: Prenatal Vitamin 1 TAB PO SCH (08:10)
[2017-07-02] MEDS: glipiZIDE 5 MG TAB PO SCH (08:10)
[2017-07-02] MEDS: TICAGRELOR 90 MG TABLET PO SCH ×2 (08:10→20:21)
[2017-07-02] MEDS: cloNIDine 0.1 MG TAB PO SCH ×2 (08:10→20:22)
--- NOTE | 2017-07-02 13:16 | PRG ---
DATE OF SERVICE: 07/02/2017 SUBJECTIVE: Mr. Pagan is using his CPAP intermittently in the room, says his breathing has improve d over the last couple of days. PHYSICAL EXAMINATION: VITAL SIGNS: Temperature is 98.0, pulse 77, respiration 20, O2 sat 93% on 3 liters, blood pressure 1 50/71. HEENT: Unremarkable. NECK: No JVD. LUNGS: Coarse rhonchi. CARDIAC: S1 and S2, regular. ABDOMEN: Soft. EXTREMITIES: No edema. LABORATORY DATA: He had no labs done today. ASSESSMENT: 1. Acute on chronic hypercapnic and hypoxic respiratory failure which is improving. 2. Chronic obstructive pulmonary disease exacerbation. 3. Chronic diastolic heart failure. PLAN: Continue current therapy. Following with you.
--- NOTE | 2017-07-02 13:21 | PDOC.PN ---
- Subjective Encounter Start Date: 07/02/17 Encounter Start Time: 09:20 Pt seen for followup re: acute on chronic respiratory failure. Feels better, no new complaints. - Objective Resuscitation Status: Resuscitation Status FULL:Full Resuscitation MAR Reviewed: Yes Vital Signs & Weight: Vital Signs (12 hours) Temp Pulse Resp BP BP BP BP 07/02/17 12:04 77 20 07/02/17 11:00 98.0 F 64 16 150/71 H 07/02/17 08:10 166/67 H 07/02/17 08:09 67 166/67 H 07/02/17 08:00 97.5 F L 67 18 166/67 H 07/02/17 07:20 65 14 07/02/17 04:00 97.3 F L 58 L 22 H 124/63 Pulse Ox 07/02/17 12:04 93 L 07/02/17 11:00 93 L 07/02/17 08:10 07/02/17 08:09 07/02/17 08:00 95 07/02/17 07:20 93 L 07/02/17 04:00 93 L Weight Admit Weight 338 lb Weight 315 lb Most Recent Monitor Data Heart Rate from ECG 67 NIBP 119/54 NIBP BP-Mean 80 Respiration from ECG 20 SpO2 97 I&O: 07/01/17 07/02/17 07/03/17 06:59 06:59 06:59 Intake Total 720 240 Balance 720 240 Result Diagrams: 07/01/17 03:54 07/01/17 03:54 Additional Labs: Accuchecks 07/02/17 07/02/17 07/01/17 11:35 04:56 20:38 POC Glucose 106 117 H 339 H 07/01/17 16:40 POC Glucose 300 H Phys Exam - Physical Examination Obesity HEENT: moist MMs Neck: supple Respiratory: clear to auscultation bilateral Cardiovascular: RRR Gastrointestinal: soft Musculoskeletal: edema present Neurological: moves all 4 limbs Psychiatric: normal affect Dx/Plan (1) Acute and chronic respiratory failure Code(s): J96.20 - ACUTE AND CHR RESP FAILURE, UNSP W HYPOXIA OR HYPERCAPNIA Status: Acute Qualifiers: Respiratory failure complication: hypoxia and hypercapnia Qualified Code(s) : J96.21 - Acute and chronic respiratory failure with hypoxia; J96.22 - Acute and chronic respiratory failure with hypercapnia; J96.22 - Acute and chronic respiratory failure with hypercapnia; J96.22 - Acute and chronic respiratory failure with hypercapnia (2) COPD exacerbation Code(s): J44.1 - CHRONIC OBSTRUCTIVE PULMONARY DISEASE W (ACUTE) EXACERBATION Status: Acute (3) CKD (chronic kidney disease) Code(s): N18.9 - CHRONIC KIDNEY DISEASE, UNSPECIFIED Status: Chronic (4) DM type 2 (diabetes mellitus, type 2) Status: Chronic (5) Dyslipidemia Code(s): E78.5 - HYPERLIPIDEMIA, UNSPECIFIED Status: Chronic (6) Paroxysmal atrial fibrillation Code(s): I48.0 - PAROXYSMAL ATRIAL FIBRILLATION Status: Chronic Comment: (7) Sleep apnea, obstructive Code(s): G47.33 - OBSTRUCTIVE SLEEP APNEA (ADULT) (PEDIATRIC) Status: Chronic - Plan PT/OT, out of bed/ambulate * . Continue oxygen, steroids, bronchodilators. Ambulate patient. Review of Systems - Review of Systems Respiratory: Cough, Dry, SOB with Excertion. negative: Shortness of Breath, Hemoptysis, Pleuritic Pain, Sputum, Wheezing Cardiovascular: negative: chest pain, palpitations, orthopnea, paroxysmal nocturnal dyspnea, edema, light headedness - Medications/Allergies Allergies/Adverse Reactions: Allergies Allergy/AdvReac Type Severity Reaction Status Date / Time No Known Allergies Allergy Verified 07/22/16 02:17 Medications: Current Medications Albuterol/Ipratropium (Duoneb) 3 ml NEB [id number] [facility] Last Admin: 07/02/17 12:04 Dose: 3 ml Albuterol/Ipratropium (Duoneb) 3 ml NEB [id number] PRN PRN Reason: SOB &/or Wheezing Last Admin: 06/26/17 09:58 Dose: 3 ml Amiodarone HCl (Cordarone) 200 mg PO DAILY [facility] Last Admin: 07/02/17 08:08 Dose: 200 mg Aspirin (Aspirin Chewable) 81 mg PO MoWeFr@0900 [facility] Last Admin: 07/01/17 10:22 Dose: 81 mg Bisacodyl (Dulcolax) 10 mg PO DAILYPRN PRN PRN Reason: Constipation Cholecalciferol (Vitamin D3) 2,000 units PO DAILY [facility] Last Admin: 07/02/17 08:09 Dose: 2,000 units Clonidine (Catapres) 0.1 mg PO Q6H PRN PRN Reason: FOR SBP > 180 Clonidine (Catapres) 0.1 mg PO BID [facility] Last Admin: 07/02/17 08:10 Dose: 0.1 mg Coenzyme Q10 (Coenzyme Q10) 100 mg PO HS [facility] Last Admin: 07/01/17 21:31 Dose: 100 mg Dextrose/Water (Dextrose 50%) 25 gm SLOW IVP PRN PRN PRN Reason: Hypoglycemia Enoxaparin Sodium (Lovenox) 40 mg SC 2100 [facility] Last Admin: 07/01/17 21:32 Dose: 40 mg Fluoxetine HCl (Prozac) 20 mg PO TID [facility] Last Admin: 07/02/17 08:09 Dose: 20 mg Glipizide (Glucotrol) 5 mg PO DAILY [facility] Last Admin: 07/02/17 08:10 Dose: 5 mg Glucagon (Glucagon) 1 mg IM PRN PRN PRN Reason: Hypoglycemia Glyburide (Diabeta) 5 mg PO DAILY [facility] Last Admin: 07/02/17 08:09 Dose: 5 mg Guaifenesin (Mucinex) 1,200 mg PO Q12HR [facility] Last Admin: 07/02/17 08:08 Dose: 1,200 mg Hydralazine HCl (Apresoline) 20 mg SLOW IVP Q6H PRN PRN Reason: SBP > 180 Last Admin: 06/26/17 15:41 Dose: 20 mg Hydralazine HCl (Apresoline) 50 mg PO TID [facility] Last Admin: 07/02/17 08:09 Dose: 50 mg Hydrocortisone Sodium Succinate (Proctozone-Hc 2.5% Cream) 1 gm TOP BID PRN PRN Reason: Hemorrhoids Dextrose/Water (D5w) 1,000 mls @ 0 mls/hr IV .Q0M PRN; As Directed PRN Reason: Hypoglycemia Insulin Human Lispro (Humalog) 0 units SC .MODERATE SLIDING SC PRN PRN Reason: Moderate Correctional Scale Last Admin: 07/01/17 21:32 Dose: 8 unit Insulin Human Lispro (Humalog) 0 units SC .BEDTIME SLIDING SC PRN PRN Reason: Bedtime Correctional Scale Last Admin: 06/30/17 20:20 Dose: 3 unit Isosorbide Mononitrate (Imdur) 120 mg PO DAILY [facility] Last Admin: 07/02/17 08:08 Dose: 120 mg Loratadine (Claritin) 10 mg PO HS [facility] Last Admin: 07/01/17 21:32 Dose: 10 mg Polyethylene Glycol (Miralax) 17 gm PO DAILY [facility] Last Admin: 07/02/17 08:07 Dose: 17 gm Prednisone (Prednisone) 40 mg PO 0800 [facility] Last Admin: 07/02/17 08:09 Dose: 40 mg Multivit/Folic Acid/Iron ( Vitamin) 1 tab PO DAILY [facility] Last Admin: 07/02/17 08:10 Dose: 1 tab Rosuvastatin Calcium (Crestor) 20 mg PO HS [facility] Last Admin: 07/01/17 21:31 Dose: 20 mg Ticagrelor (Brilinta) 90 mg PO BID [facility] Last Admin: 07/02/17 08:10 Dose: 90 mg Torsemide (Demadex) 100 mg PO 0900,1400 [facility] Last Admin: 07/02/17 08:08 Dose: 100 mg
[2017-07-02] MEDS: HumaLOG 300 UNITS/3 ML VIAL SC PRN ×2 (17:47→20:29)
--- NOTE | 2017-07-02 19:34 | PRG ---
DATE OF SERVICE: 07/02/2017 SUBJECTIVE: Patient was seen and examined at bedside and overnight events noted. Patient denies any shortness of breath or chest pain or palpitation. No history of nausea or vomiting or diarrhea or f ever or chills or cramps. OBJECTIVE: GENERAL: This is a morbidly obese male in no apparent distress. VITAL SIGNS: Temperature 91, pulse 70, respiratory rate 18 and blood pressure 177/82. HEENT: Atraumatic and normocephalic. Oral mucosa is moist. NECK: Supple. CARDIOVASCULAR: S1 and S2 heard. Rate and rhythm regular. RESPIRATORY: Clear to auscultation. GASTROINTESTINAL: Abdomen is soft. MUSCULOSKELETAL: No tenderness. No edema. DERMATOLOGIC: No skin rash. NEUROLOGIC: Alert, awake and oriented x3. No focal neurologic deficits. Moving all the extremities . PSYCHIATRIC: Mood and affect normal. LABORATORY DATA: Not done today. ASSESSMENT AND PLAN: 1. Acute kidney injury on chronic kidney disease. Check labs in the morning. 2. Edema with cardiorenal syndrome. 3. Metabolic alkalosis. 4. Morbid obesity. 5. Anemia. 6. Hyperkalemia. 7. We will monitor the renal function. Check labs in the morning. We will follow.
[2017-07-02] MEDS: Enoxaparin Sodium 40 MG/0.4 ML SYRINGE SC SCH (20:21)
[2017-07-02] MEDS: Rosuvastatin 20 MG TAB PO SCH (20:22)
[2017-07-02] MEDS: Loratadine 10 MG TAB PO SCH (20:22)
[2017-07-02] MEDS: Ubidecarenone 50 MG CAP PO SCH (20:22)
--- NOTE | 2017-07-02 22:44 | PDOC.CTH ---
Cardiology Progress Note - Subjective The pt seen and examined. No overnight events. No cardiac complaints. He still needs NC with CPAP to sleep. Possible Tx to rehab on Tuesday. - Objective Vital Signs Temp Pulse Resp BP BP BP Pulse Ox 07/02/17 20:22 68 07/02/17 20:00 98.1 F 68 18 07/02/17 19:33 68 16 96 07/02/17 16:00 98.1 F 70 16 177/82 H 92 L 07/02/17 14:58 64 141/53 H 07/02/17 12:04 77 20 93 L 07/02/17 11:00 98.0 F 64 16 150/71 H 93 L Admit Weight 338 lb Weight 315 lb 07/01/17 07/02/17 07/03/17 06:59 06:59 06:59 Intake Total 720 720 Balance 720 720 - Physical Examination General/Neuro: alert & oriented x3 Neck: no JVD present Lungs: other: (very diminsihed at bases) Heart: RRR Abdomen: soft Extremities: other: (3+ pitting edema) - Labs Result Diagrams: 07/01/17 03:54 07/01/17 03:54 Troponin/CKMB CK-MB (CK-2) 3.6 ng/mL (0-6.6) 06/22/17 09:50 Troponin I 0.047 ng/mL (< 0.028) H 06/22/17 16:37 - Assessment/Plan 1. Acute on chronic hypercapnic and hypoxic resp. failure - stable; managed by logistics engineering manager 2. Acute on Chronic Diastolic HF - on Torsemide; 3. Paroxysmal Afib - on AMiodarone 200mg daily and on Lovenox; cont. monitor symptoms 4. CAD wtih Hx of multiple stents - on Brilinta and ASA and Statin; not on BRIGITTE due to hx of CKD; not on bblocker due to severe COPD; cont. monitor 5. COPD and severe SA - managed by logistics engineering manager 6. DM type 2 - managed by PCP 7. Acute on CKD stage 3 - slightly improving 8. Anemia - cont. monitor MAR reviewed Review of Systems - Review of Systems Constitutional: reports: no symptoms reported EENTM: reports: no symptoms reported Respiratory: reports: see HPI Cardiac (ROS): reports: no symptoms reported ABD/GI: reports: no symptoms reported : reports: no symptoms reported Musculoskeletal: reports: no symptoms reported
[2017-07-03 04:30] LABS: BUN (Urea Nitrogen) 51 mg/dL (8.4-25.7); Calc. Creatinine Clearance 62 mL/min (70-130); Estimated GFR-MDRD 31; Glucose 65 mg/dL (83-110)
[2017-07-03 04:41] LABS: Anion Gap 16 mmol/L (10-20); Carbon Dioxide 36 mmol/L (23-31); Chloride 92 mmol/L (98-107); Potassium 3.2 mmol/L (3.5-5.1); Sodium 141 mmol/L (136-145)
[2017-07-03] MEDS: guaiFENesin ER 600 MG TAB PO SCH ×2 (08:35→20:43)
[2017-07-03] MEDS: glipiZIDE 5 MG TAB PO SCH (08:36)
[2017-07-03] MEDS: TICAGRELOR 90 MG TABLET PO SCH ×2 (08:36→20:44)
[2017-07-03] MEDS: predniSONE 20 MG TAB PO SCH (08:36)
[2017-07-03] MEDS: Amiodarone 200 MG TAB PO SCH (08:38)
[2017-07-03] MEDS: glyBURIDE 5 MG TAB PO SCH (08:38)
[2017-07-03] MEDS: hydrALAZINE 25 MG TAB PO SCH ×3 (08:38→20:42)
[2017-07-03] MEDS: cloNIDine 0.1 MG TAB PO SCH ×2 (08:39→20:42)
[2017-07-03] MEDS: FLUoxetine HCl 20 MG CAP PO SCH ×3 (08:39→20:42)
[2017-07-03] MEDS: Polyethylene Glycol 3350 17 GM Packet PO SCH (08:39)
[2017-07-03] MEDS: Prenatal Vitamin 1 TAB PO SCH (08:39)
[2017-07-03] MEDS: Torsemide 100 MG TAB PO SCH ×2 (08:48→15:01)
--- NOTE | 2017-07-03 14:20 | PDOC.PN ---
- Subjective Encounter Start Date: 07/03/17 Encounter Start Time: 10:00 Pt seen for followup re: acute respiratory failure. Denies chest pain. SOBOE+ , but better. - Objective Resuscitation Status: Resuscitation Status FULL:Full Resuscitation MAR Reviewed: Yes Vital Signs & Weight: Vital Signs (12 hours) Temp Pulse Resp BP BP Pulse Ox 07/03/17 11:28 69 18 95 07/03/17 08:39 122/67 07/03/17 08:38 72 122/67 07/03/17 08:00 98.6 F 72 18 93 L 07/03/17 07:43 98.6 F 72 18 130/54 L 93 L 07/03/17 05:39 65 16 96 Weight Admit Weight 338 lb Weight 315 lb Most Recent Monitor Data Heart Rate from ECG 67 NIBP 119/54 NIBP BP-Mean 80 Respiration from ECG 20 SpO2 97 I&O: 07/02/17 07/03/17 07/04/17 06:59 06:59 06:59 Intake Total 720 720 Balance 720 720 Result Diagrams: 07/01/17 03:54 07/03/17 03:50 Additional Labs: Accuchecks 07/03/17 07/03/17 07/02/17 11:43 04:42 20:29 POC Glucose 127 H 79 300 H 07/02/17 07/01/17 16:28 04:43 POC Glucose 332 H 103 Phys Exam - Physical Examination Morbidly obese HEENT: moist MMs Neck: supple Respiratory: clear to auscultation bilateral Cardiovascular: RRR Gastrointestinal: soft Musculoskeletal: edema present Neurological: moves all 4 limbs Psychiatric: normal affect Dx/Plan (1) Acute and chronic respiratory failure Code(s): J96.20 - ACUTE AND CHR RESP FAILURE, UNSP W HYPOXIA OR HYPERCAPNIA Status: Acute Qualifiers: Respiratory failure complication: hypoxia and hypercapnia Qualified Code(s) : J96.21 - Acute and chronic respiratory failure with hypoxia; J96.22 - Acute and chronic respiratory failure with hypercapnia; J96.22 - Acute and chronic respiratory failure with hypercapnia; J96.22 - Acute and chronic respiratory failure with hypercapnia (2) COPD exacerbation Code(s): J44.1 - CHRONIC OBSTRUCTIVE PULMONARY DISEASE W (ACUTE) EXACERBATION Status: Acute (3) CKD (chronic kidney disease) Code(s): N18.9 - CHRONIC KIDNEY DISEASE, UNSPECIFIED Status: Chronic (4) DM type 2 (diabetes mellitus, type 2) Status: Chronic (5) Dyslipidemia Code(s): E78.5 - HYPERLIPIDEMIA, UNSPECIFIED Status: Chronic (6) Paroxysmal atrial fibrillation Code(s): I48.0 - PAROXYSMAL ATRIAL FIBRILLATION Status: Chronic Comment: (7) Sleep apnea, obstructive Code(s): G47.33 - OBSTRUCTIVE SLEEP APNEA (ADULT) (PEDIATRIC) Status: Chronic - Plan PT/OT, out of bed/ambulate * . Continue oxygen, steroids, bronchodilators. Ambulate patient. Creatinine improving. Continue torsemide. Review of Systems - Review of Systems Respiratory: Shortness of Breath, SOB with Excertion. negative: Cough, Dry, Hemoptysis, Pleuritic Pain, Sputum, Wheezing Cardiovascular: negative: chest pain, palpitations, orthopnea, paroxysmal nocturnal dyspnea, edema, light headedness - Medications/Allergies Allergies/Adverse Reactions: Allergies Allergy/AdvReac Type Severity Reaction Status Date / Time No Known Allergies Allergy Verified 07/22/16 02:17 Medications: Current Medications Albuterol/Ipratropium (Duoneb) 3 ml NEB [id number] [facility] Last Admin: 07/03/17 11:28 Dose: 3 ml Albuterol/Ipratropium (Duoneb) 3 ml NEB [id number] PRN PRN Reason: SOB &/or Wheezing Last Admin: 06/26/17 09:58 Dose: 3 ml Amiodarone HCl (Cordarone) 200 mg PO DAILY [facility] Last Admin: 07/03/17 08:38 Dose: Not Given Aspirin (Aspirin Chewable) 81 mg PO MoWeFr@0900 [facility] Last Admin: 07/01/17 10:22 Dose: 81 mg Bisacodyl (Dulcolax) 10 mg PO DAILYPRN PRN PRN Reason: Constipation Cholecalciferol (Vitamin D3) 2,000 units PO DAILY [facility] Last Admin: 07/03/17 08:39 Dose: 2,000 units Clonidine (Catapres) 0.1 mg PO Q6H PRN PRN Reason: FOR SBP > 180 Clonidine (Catapres) 0.1 mg PO BID [facility] Last Admin: 07/03/17 08:39 Dose: Not Given Coenzyme Q10 (Coenzyme Q10) 100 mg PO HS [facility] Last Admin: 07/02/17 20:22 Dose: 100 mg Dextrose/Water (Dextrose 50%) 25 gm SLOW IVP PRN PRN PRN Reason: Hypoglycemia Enoxaparin Sodium (Lovenox) 40 mg SC 2100 [facility] Last Admin: 07/02/17 20:21 Dose: 40 mg Fluoxetine HCl (Prozac) 20 mg PO TID [facility] Last Admin: 07/03/17 08:39 Dose: 20 mg Glipizide (Glucotrol) 5 mg PO DAILY [facility] Last Admin: 07/03/17 08:36 Dose: 5 mg Glucagon (Glucagon) 1 mg IM PRN PRN PRN Reason: Hypoglycemia Glyburide (Diabeta) 5 mg PO DAILY [facility] Last Admin: 07/03/17 08:38 Dose: 5 mg Guaifenesin (Mucinex) 1,200 mg PO Q12HR [facility] Last Admin: 07/03/17 08:35 Dose: 1,200 mg Hydralazine HCl (Apresoline) 20 mg SLOW IVP Q6H PRN PRN Reason: SBP > 180 Last Admin: 06/26/17 15:41 Dose: 20 mg Hydralazine HCl (Apresoline) 50 mg PO TID [facility] Last Admin: 07/03/17 08:38 Dose: Not Given Hydrocortisone Sodium Succinate (Proctozone-Hc 2.5% Cream) 1 gm TOP BID PRN PRN Reason: Hemorrhoids Dextrose/Water (D5w) 1,000 mls @ 0 mls/hr IV .Q0M PRN; As Directed PRN Reason: Hypoglycemia Insulin Human Lispro (Humalog) 0 units SC .MODERATE SLIDING SC PRN PRN Reason: Moderate Correctional Scale Last Admin: 07/02/17 20:29 Dose: 6 unit Insulin Human Lispro (Humalog) 0 units SC .BEDTIME SLIDING SC PRN PRN Reason: Bedtime Correctional Scale Last Admin: 06/30/17 20:20 Dose: 3 unit Isosorbide Mononitrate (Imdur) 120 mg PO DAILY [facility] Last Admin: 07/03/17 08:36 Dose: 120 mg Loratadine (Claritin) 10 mg PO HS [facility] Last Admin: 07/02/17 20:22 Dose: 10 mg Polyethylene Glycol (Miralax) 17 gm PO DAILY [facility] Last Admin: 07/03/17 08:39 Dose: 17 gm Prednisone (Prednisone) 40 mg PO 0800 [facility] Last Admin: 07/03/17 08:36 Dose: 40 mg Multivit/Folic Acid/Iron ( Vitamin) 1 tab PO DAILY [facility] Last Admin: 07/03/17 08:39 Dose: 1 tab Rosuvastatin Calcium (Crestor) 20 mg PO HS [facility] Last Admin: 07/02/17 20:22 Dose: 20 mg Ticagrelor (Brilinta) 90 mg PO BID [facility] Last Admin: 07/03/17 08:36 Dose: 90 mg Torsemide (Demadex) 100 mg PO 0900,1400 [facility] Last Admin: 07/03/17 08:48 Dose: 100 mg
--- NOTE | 2017-07-03 14:55 | PRG ---
DATE OF SERVICE: 07/03/2017 SUBJECTIVE: Mr. Pagan seems to be doing reasonably well and had no acute complaints. He feels lik e he is nearing the point of discharge to rehab. PHYSICAL EXAMINATION: VITAL SIGNS: Temperature 98.6, pulse 69, respirations 16, O2 sat 95% on 3 liters. HEENT: Unremarkable. NECK: No JVD. LUNGS: Coarse breath sounds. CARDIAC: S1 and S2 regular. ABDOMEN: Soft. EXTREMITIES: No edema. LABORATORY DATA: Sodium 141, potassium 3.2, chloride 92, CO2 of 36, BUN 51, creatinine 2.0, glucose 65. ASSESSMENT: 1. Stable pulmonary status. 2. Chronic obstructive pulmonary disease with exacerbation. 3. Status post acute on chronic hypercapnic and hypoxic respiratory failure. PLAN: Continue nebulization treatments and oral steroids, hopefully to rehab tomorrow.
[2017-07-03] MEDS: HumaLOG 300 UNITS/3 ML VIAL SC PRN ×2 (16:49→20:53)
--- NOTE | 2017-07-03 17:19 | PRG ---
DATE OF SERVICE: 07/03/2017 SUBJECTIVE: Patient was seen and examined at bedside and overnight events noted. Patient denies any shortness of breath or chest pain or palpitation. No history of nausea or vomiting or diarrhea or f ever or chills or cramps. OBJECTIVE: GENERAL: This is a morbidly obese male, in no acute distress. VITAL SIGNS: Temperature 96, pulse 72, respiratory rate 18, blood pressure 122/67. HEENT: Atraumatic, normocephalic, oral mucosa is moist. NECK: Supple. CARDIOVASCULAR: S1, S2 heard, rate and rhythm regular. RESPIRATORY: Clear to auscultation. GASTROINTESTINAL: Abdomen is soft. MUSCULOSKELETAL: No tenderness, no edema. DERMATOLOGIC: No skin rash. NEUROLOGIC: Alert and awake and oriented x3, no focal neurologic deficits. Moving all the extremiti es. PSYCHIATRIC: Mood and affect normal. LABORATORY DATA: Creatinine is 2.07, GFR 31, potassium 3.2, bicarbonate 32. ASSESSMENT AND PLAN: 1. Acute kidney injury on chronic kidney disease, stage 3. Renal function is stable. 2. Edema. 3. Cardiorenal syndrome. 4. Metabolic alkalosis secondary to diuresis. 5. Morbid obesity. 6. Anemia. 7. Hypokalemia, replace and monitor. 8. Okay to start low dose of Lasix. We would recommend 40 to 80 mg p.o. daily and limit fluid and s alt intake.
[2017-07-03] MEDS: Rosuvastatin 20 MG TAB PO SCH (20:42)
[2017-07-03] MEDS: Loratadine 10 MG TAB PO SCH (20:43)
[2017-07-03] MEDS: Enoxaparin Sodium 40 MG/0.4 ML SYRINGE SC SCH (20:43)
[2017-07-03] MEDS: Ubidecarenone 50 MG CAP PO SCH (20:44)
[2017-07-04] MEDS: predniSONE 20 MG TAB PO SCH (09:46)
[2017-07-04] MEDS: glyBURIDE 5 MG TAB PO SCH (09:46)
[2017-07-04 09:47] LABS: BUN (Urea Nitrogen) 48 mg/dL (8.4-25.7); Calc. Creatinine Clearance 59 mL/min (70-130); Calcium 8.7 mg/dL (7.8-10.44); Estimated GFR-MDRD 30; Glucose 115 mg/dL (83-110)
[2017-07-04] MEDS: Amiodarone 200 MG TAB PO SCH (09:47)
[2017-07-04] MEDS: glipiZIDE 5 MG TAB PO SCH (09:47)
[2017-07-04] MEDS: FLUoxetine HCl 20 MG CAP PO SCH ×3 (09:48→21:36)
[2017-07-04] MEDS: cloNIDine 0.1 MG TAB PO SCH ×2 (09:48→21:42)
[2017-07-04] MEDS: Polyethylene Glycol 3350 17 GM Packet PO SCH (09:49)
[2017-07-04] MEDS: guaiFENesin ER 600 MG TAB PO SCH ×2 (09:49→21:37)
[2017-07-04] MEDS: TICAGRELOR 90 MG TABLET PO SCH ×2 (09:49→21:41)
[2017-07-04] MEDS: Prenatal Vitamin 1 TAB PO SCH (09:49)
[2017-07-04] MEDS: Torsemide 100 MG TAB PO SCH ×2 (09:49→14:38)
[2017-07-04] MEDS: hydrALAZINE 25 MG TAB PO SCH ×3 (09:50→21:43)
[2017-07-04 09:56] LABS: Anion Gap 15 mmol/L (10-20); Carbon Dioxide 34 mmol/L (23-31); Chloride 92 mmol/L (98-107); Sodium 138 mmol/L (136-145)
[2017-07-04 09:58] LABS: Potassium 2.9 mmol/L (3.5-5.1)
--- NOTE | 2017-07-04 10:11 | PRG ---
DATE OF SERVICE: 07/04/2017 NEPHROLOGY PROGRESS NOTE SUBJECTIVE: This is a 77-year-old gentleman being seen for acute kidney injury. The patient denies any nausea, vomiting or chest pain. PHYSICAL EXAMINATION: GENERAL: Patient is awake, alert. VITAL SIGNS: Afebrile, pulse 72, breathing at 16, blood pressure 111/47. HEAD/NECK: Normocephalic. Atraumatic. EYES: EOMI. No deformity. EARS: Clear. No ulcers. NOSE: Intact. No lesions. MOUTH: Clear. No discharge. THROAT: Clear. No exudate. LUNGS: Clear. No crackles. CARDIAC: S1, S2. No rub. ABDOMEN: Benign. BS+. GENITALIA/RECTUM: Polk absent. BACK/EXTREMITIES: Edema 0+ Ulcer- NEUROLOGICAL: Alert and motor intact. SKIN: Rash- Bruise- LYMPHATICS: Edema- Ulcer- LABORATORY DATA: Show hemoglobin 10.6, creatinine was 2.1. ASSESSMENT AND RECOMMENDATIONS: 1. Acute kidney injury with chronic kidney disease stage 3, stable. 2. Hypertension, stable. 3. Anemia, stable. 4. Medications based on glomerular filtration rate are appropriate. No indication for dialysis at t his time. 5. Elevated bicarbonate, most likely respiratory acidosis.
[2017-07-04] MEDS: Potassium Chloride 40 MEQ, Admixture Fee 1 EACH in Sodium Chloride 0.9% 250 ML 250 ML IVPB SCH ×2 (10:28→14:38)
--- NOTE | 2017-07-04 13:41 | PRG ---
DATE OF SERVICE: 07/04/2017 SERVICE: Pulmonary Medicine. INTERVAL HISTORY: The patient is doing absolutely fantastic today. He did not have any breathing di fficulties. He denies any current fevers, chills, nausea, vomiting or chest discomfort. Otherwise, there has been no interval change to his condition. He is hoping to get out of here in the next day or two, but is not interested in rushing anything. Plan on going to rehabilitation center. PHYSICAL EXAMINATION: VITAL SIGNS: Afebrile, pulse 64, blood pressure 126/68, respirations 22, saturation 96% on 2 liters nasal cannula. GENERAL: The patient is awake, alert, no apparent distress. LUNGS: Much improved air entry compared to Tuesday. He continues to have rhonchi, but did not clear with cough. There is a little prolongation to the expiratory phase. No dependent crackles are ident ified. HEART: Normal rate, regular. ABDOMEN: Soft, nontender, nondistended. Bowel sounds are positive. MUSCULOSKELETAL: No cyanosis or clubbing. There is 1+ pitting in the left lower extremity and trace pitting the right lower extremity. GENITOURINARY: No Polk. NEUROLOGIC: Grossly nonfocal. LABORATORY DATA: Potassium 2.9. Basic metabolic profile is otherwise unremarkable. BUN is 48. ASSESSMENT: 1. Acute on chronic hypoxic and hypercapnic respiratory failure. 2. Chronic obstructive pulmonary disease with acute exacerbation, secondary to respiratory syncytial virus B. 3. Chronic diastolic heart failure, currently euvolemic. 4. Pulmonary hypertension, multifactorial. 5. Obstructive sleep apnea, severe. 6. Acute kidney injury on chronic kidney disease, resolving to baseline. PLAN: The patient is currently stable for transition out to the hospital from purely respiratory per spective. I would like for him to follow up with me in clinic as previously directed. Otherwise, if he remains inhouse, I will continue to follow.
--- NOTE | 2017-07-04 16:43 | PDOC.PN ---
- Subjective Encounter Start Date: 07/04/17 Encounter Start Time: 10:00 Pt seen for followup re: hypokalemia. Says he feels better. - Objective Resuscitation Status: Resuscitation Status FULL:Full Resuscitation MAR Reviewed: Yes Vital Signs & Weight: Vital Signs (12 hours) Temp Pulse Resp BP BP Pulse Ox 07/04/17 14:38 64 132/64 07/04/17 13:26 79 18 96 07/04/17 11:29 97.6 F 64 22 H 126/68 96 07/04/17 09:50 72 111/47 L 07/04/17 09:48 111/47 L 07/04/17 08:00 98.2 F 72 16 111/47 L 95 07/04/17 07:32 75 16 98 Weight Admit Weight 338 lb Weight 315 lb Most Recent Monitor Data Heart Rate from ECG 67 NIBP 119/54 NIBP BP-Mean 80 Respiration from ECG 20 SpO2 97 I&O: 07/03/17 07/04/17 07/05/17 06:59 06:59 06:59 Intake Total 720 500 Balance 720 500 Result Diagrams: 07/01/17 03:54 07/04/17 09:19 Additional Labs: Accuchecks 07/04/17 07/04/17 07/04/17 16:16 11:31 05:27 POC Glucose 354 H 107 91 07/03/17 07/03/17 20:52 16:31 POC Glucose 175 H 334 H Phys Exam - Physical Examination Obese HEENT: moist MMs Neck: supple Bibasal crackles Cardiovascular: RRR Gastrointestinal: soft Musculoskeletal: edema present Neurological: moves all 4 limbs Psychiatric: normal affect Dx/Plan (1) Hypokalemia Code(s): E87.6 - HYPOKALEMIA Status: Acute (2) Acute and chronic respiratory failure Code(s): J96.20 - ACUTE AND CHR RESP FAILURE, UNSP W HYPOXIA OR HYPERCAPNIA Status: Acute Qualifiers: Respiratory failure complication: hypoxia and hypercapnia Qualified Code(s) : J96.21 - Acute and chronic respiratory failure with hypoxia; J96.22 - Acute and chronic respiratory failure with hypercapnia; J96.22 - Acute and chronic respiratory failure with hypercapnia; J96.22 - Acute and chronic respiratory failure with hypercapnia (3) COPD exacerbation Code(s): J44.1 - CHRONIC OBSTRUCTIVE PULMONARY DISEASE W (ACUTE) EXACERBATION Status: Acute (4) CKD (chronic kidney disease) Code(s): N18.9 - CHRONIC KIDNEY DISEASE, UNSPECIFIED Status: Chronic (5) DM type 2 (diabetes mellitus, type 2) Status: Chronic (6) Dyslipidemia Code(s): E78.5 - HYPERLIPIDEMIA, UNSPECIFIED Status: Chronic (7) Paroxysmal atrial fibrillation Code(s): I48.0 - PAROXYSMAL ATRIAL FIBRILLATION Status: Chronic Comment: (8) Sleep apnea, obstructive Code(s): G47.33 - OBSTRUCTIVE SLEEP APNEA (ADULT) (PEDIATRIC) Status: Chronic - Plan PT/OT, out of bed/ambulate * .Replace potassium Pt is on torsemide, bronchodilators., continue. Discharge planning in process. Review of Systems - Review of Systems Constitutional: negative: fever, chills, sweats, weakness, malaise Respiratory: Cough, Dry, SOB with Excertion. negative: Shortness of Breath, Hemoptysis, Pleuritic Pain, Sputum, Wheezing - Medications/Allergies Allergies/Adverse Reactions: Allergies Allergy/AdvReac Type Severity Reaction Status Date / Time No Known Allergies Allergy Verified 07/22/16 02:17 Medications: Current Medications Albuterol/Ipratropium (Duoneb) 3 ml NEB [id number] [facility] Last Admin: 07/04/17 13:26 Dose: 3 ml Albuterol/Ipratropium (Duoneb) 3 ml NEB [id number] PRN PRN Reason: SOB &/or Wheezing Last Admin: 06/26/17 09:58 Dose: 3 ml Amiodarone HCl (Cordarone) 200 mg PO DAILY [facility] Last Admin: 07/04/17 09:47 Dose: 200 mg Aspirin (Aspirin Chewable) 81 mg PO [id number]@0900 [facility] Last Admin: 07/04/17 10:00 Dose: 81 mg Bisacodyl (Dulcolax) 10 mg PO DAILYPRN PRN PRN Reason: Constipation Cholecalciferol (Vitamin D3) 2,000 units PO DAILY [facility] Last Admin: 07/04/17 09:46 Dose: 2,000 units Clonidine (Catapres) 0.1 mg PO Q6H PRN PRN Reason: FOR SBP > 180 Clonidine (Catapres) 0.1 mg PO BID [facility] Last Admin: 07/04/17 09:48 Dose: Not Given Coenzyme Q10 (Coenzyme Q10) 100 mg PO HS [facility] Last Admin: 07/03/17 20:44 Dose: 100 mg Dextrose/Water (Dextrose 50%) 25 gm SLOW IVP PRN PRN PRN Reason: Hypoglycemia Enoxaparin Sodium (Lovenox) 40 mg SC 2100 [facility] Last Admin: 07/03/17 20:43 Dose: 40 mg Fluoxetine HCl (Prozac) 20 mg PO TID [facility] Last Admin: 07/04/17 14:38 Dose: 20 mg Glipizide (Glucotrol) 5 mg PO DAILY [facility] Last Admin: 07/04/17 09:47 Dose: 5 mg Glucagon (Glucagon) 1 mg IM PRN PRN PRN Reason: Hypoglycemia Glyburide (Diabeta) 5 mg PO DAILY [facility] Last Admin: 07/04/17 09:46 Dose: 5 mg Guaifenesin (Mucinex) 1,200 mg PO Q12HR [facility] Last Admin: 07/04/17 09:49 Dose: 1,200 mg Hydralazine HCl (Apresoline) 20 mg SLOW IVP Q6H PRN PRN Reason: SBP > 180 Last Admin: 06/26/17 15:41 Dose: 20 mg Hydralazine HCl (Apresoline) 50 mg PO TID [facility] Last Admin: 07/04/17 14:38 Dose: 50 mg Hydrocortisone Sodium Succinate (Proctozone-Hc 2.5% Cream) 1 gm TOP BID PRN PRN Reason: Hemorrhoids Dextrose/Water (D5w) 1,000 mls @ 0 mls/hr IV .Q0M PRN; As Directed PRN Reason: Hypoglycemia Potassium Chloride 40 meq/Miscellaneous Medication 1 each/ Sodium Chloride 270 mls @ 67.5 mls/hr IVPB Q4H [facility] Stop: 07/04/17 18:59 Last Admin: 07/04/17 14:38 Dose: 270 mls Insulin Human Lispro (Humalog) 0 units SC .MODERATE SLIDING SC PRN PRN Reason: Moderate Correctional Scale Last Admin: 07/03/17 20:53 Dose: 2 unit Insulin Human Lispro (Humalog) 0 units SC .BEDTIME SLIDING SC PRN PRN Reason: Bedtime Correctional Scale Last Admin: 06/30/17 20:20 Dose: 3 unit Isosorbide Mononitrate (Imdur) 120 mg PO DAILY [facility] Last Admin: 07/04/17 09:47 Dose: 120 mg Loratadine (Claritin) 10 mg PO HS [facility] Last Admin: 07/03/17 20:43 Dose: 10 mg Polyethylene Glycol (Miralax) 17 gm PO DAILY [facility] Last Admin: 07/04/17 09:49 Dose: 17 gm Prednisone (Prednisone) 40 mg PO 0800 [facility] Last Admin: 07/04/17 09:46 Dose: 40 mg Multivit/Folic Acid/Iron ( Vitamin) 1 tab PO DAILY [facility] Last Admin: 07/04/17 09:49 Dose: 1 tab Rosuvastatin Calcium (Crestor) 20 mg PO HS [facility] Last Admin: 07/03/17 20:42 Dose: 20 mg Sodium Chloride (Flush - Normal Saline) 10 ml IVF Q12HR [facility] Sodium Chloride (Flush - Normal Saline) 10 ml IVF PRN PRN PRN Reason: Saline Flush Ticagrelor (Brilinta) 90 mg PO BID [facility] Last Admin: 07/04/17 09:49 Dose: 90 mg Torsemide (Demadex) 100 mg PO 0900,1400 [facility] Last Admin: 07/04/17 14:38 Dose: 100 mg
[2017-07-04] MEDS: HumaLOG 300 UNITS/3 ML VIAL SC PRN (17:34)
[2017-07-04] MEDS: Enoxaparin Sodium 40 MG/0.4 ML SYRINGE SC SCH (21:33)
[2017-07-04] MEDS: Loratadine 10 MG TAB PO SCH (21:36)
[2017-07-04] MEDS: Rosuvastatin 20 MG TAB PO SCH (21:37)
[2017-07-04] MEDS: Ubidecarenone 50 MG CAP PO SCH (21:41)
[2017-07-05] MEDS: HumaLOG 300 UNITS/3 ML VIAL SC PRN ×2 (06:16→17:45)
[2017-07-05] MEDS: guaiFENesin ER 600 MG TAB PO SCH (08:36)
[2017-07-05] MEDS: Torsemide 100 MG TAB PO SCH ×2 (08:36→15:06)
[2017-07-05] MEDS: glipiZIDE 5 MG TAB PO SCH (08:36)
[2017-07-05] MEDS: FLUoxetine HCl 20 MG CAP PO SCH ×2 (08:36→15:04)
[2017-07-05] MEDS: glyBURIDE 5 MG TAB PO SCH (08:36)
[2017-07-05] MEDS: predniSONE 20 MG TAB PO SCH (08:37)
[2017-07-05] MEDS: Amiodarone 200 MG TAB PO SCH (08:37)
[2017-07-05] MEDS: cloNIDine 0.1 MG TAB PO SCH ×2 (08:37→12:17)
[2017-07-05] MEDS: Polyethylene Glycol 3350 17 GM Packet PO SCH (08:39)
[2017-07-05] MEDS: TICAGRELOR 90 MG TABLET PO SCH (09:55)
[2017-07-05] MEDS: Prenatal Vitamin 1 TAB PO SCH (09:55)
[2017-07-05] MEDS: hydrALAZINE 25 MG TAB PO SCH (10:06)
--- NOTE | 2017-07-05 10:29 | PRG ---
DATE OF SERVICE: 07/05/2017 SUBJECTIVE: This is a 77-year-old male being seen for acute kidney injury. The patient denies any n ausea, vomiting, or chest pain. PHYSICAL EXAMINATION: GENERAL: Patient is awake, alert. VITAL SIGNS: Afebrile, pulse 75, breathing at 16, blood pressure 121/66. OBJECTIVE: See above. Awake, alert, in no acute distress. GENERAL APPEARANCE AND MENTAL STATUS: Fair. HEAD/NECK: Normocephalic. Atraumatic. EYES: EOMI. No deformity. EARS: Clear. No ulcers. NOSE: Intact. No lesions. MOUTH: Clear. No discharge. THROAT: Clear. No exudate. LUNGS: Clear. No crackles. CARDIAC: S1, S2. No rub. ABDOMEN: Benign. BS+. GENITALIA/RECTUM: Polk absent. BACK/EXTREMITIES: Lower extremities had 4+ edema, 0+ Ulcer- NEUROLOGICAL: Alert and motor intact. SKIN: Rash- Bruise- LYMPHATICS: Edema- Ulcer- LABORATORY: Creatinine is improving. ASSESSMENT AND RECOMMENDATIONS: 1. Acute kidney injury with chronic kidney disease, follow renal function closely. 2. Hypertension, stable. 3. Anemia, stable. 4. Medications based on glomerular filtration rate are appropriate. 5. Edema. Continue diuresis.
[2017-07-05] MEDS ORDERED: hydrALAZINE 25 MG TAB PO SCH ×2 (10:30→15:00)
--- NOTE | 2017-07-05 11:08 | PRG ---
DATE OF SERVICE: 07/05/2017 SERVICE: Pulmonary Medicine. INTERVAL HISTORY: The patient is doing fine from a cardiovascular and respiratory standpoint. He is breathing very comfortably. He has no specific complaints of fevers, chills, nausea, vomiting. He is hoping to get out of here, but apparently he did not qualify for rehabilitation. As such, they ar e evaluating to see whether or not he qualifies for [facility]. Hopefully, he can spent 1-2 weeks t here to regain his strength. PHYSICAL EXAMINATION: VITAL SIGNS: Afebrile, pulse 75, blood pressure 106/61, respirations 22, saturation 97% on 3 liters nasal cannula. GENERAL: The patient is awake, alert, in no apparent distress. LUNGS: Much improved air entry. There is a prolonged expiratory phase and rhonchi. No wheezing or crackles are appreciated. HEART: Normal rate, regular. ABDOMEN: Soft, nontender, nondistended. Bowel sounds are positive. MUSCULOSKELETAL: No cyanosis or clubbing. There is no pitting in the bilateral lower extremities. NEUROLOGIC: Grossly nonfocal. ASSESSMENT: 1. Acute on chronic hypoxic and hypercapnic respiratory failure. 2. Chronic obstructive pulmonary disease with acute exacerbation secondary to respiratory syncytial virus B. 3. Chronic diastolic heart failure, currently euvolemic. 4. Pulmonary hypertension, multifactorial. 5. Obstructive sleep apnea, severe. 6. Acute kidney injury, resolved the baseline chronic kidney disease state. PLAN: The patient is doing fine and is stable for transition out of the hospital at this time. He c an continue his steroids for a total duration of 2 weeks and then they can subsequently be discontinu ed. On discharge from the hospital, resume home inhalers. [facility]. Pulmonary and Critical Care will continue to follow if he hap pens to remain in-house, but hopefully, he will be going home today.
[2017-07-05 11:29] LABS: BUN (Urea Nitrogen) 44 mg/dL (8.4-25.7); Calc. Creatinine Clearance 67 mL/min (70-130); Calcium 8.8 mg/dL (7.8-10.44); Estimated GFR-MDRD 34; Glucose 103 mg/dL (83-110)
[2017-07-05 11:40] LABS: Anion Gap 12 mmol/L (10-20); Carbon Dioxide 36 mmol/L (23-31); Chloride 95 mmol/L (98-107); Potassium 3.1 mmol/L (3.5-5.1); Sodium 140 mmol/L (136-145)
--- NOTE | 2017-07-05 14:03 | DIS ---
PRIMARY CARE PHYSICIAN: Dr. Anselmo Reese DATE OF ADMISSION: 06/22/2017 DATE OF DISCHARGE: 07/05/2017 DISCHARGE DIAGNOSES: 1. Acute on chronic respiratory failure. 2. Chronic obstructive pulmonary disease exacerbation. 3. Congestive heart failure exacerbation. 4. Hypokalemia. 5. Acute on chronic renal insufficiency. CONDITION OF PATIENT ON THE DAY OF DISCHARGE: Stable. I assessed Mr. Pagan on the day of discharge. The patient denies any chest pain. His shortness of breath is better. Vital signs are stable. S1 and S2 are heard, regular. Lungs are clear to auscultation bilaterally. He has bilateral lower extremity edema. CONSULTATIONS DURING THIS HOSPITALIZATION: Cardiology, Dr. Farmer; Pulmonology, Dr. Patel and Nephrology, Dr. Roque. HOSPITAL COURSE: Mr. Pagan is a pleasant 77-year-old gentleman who was admitted to [facility] on 06/22/2017 for acute on chronic hypoxic respiratory failure secondary to chronic obstructive pulmonary disease exacerbation and congestive heart failure exacerbation. He also had acute on chronic renal insufficiency. His beta juanita was stopped. His ARB was also stopped. He received intravenous diuretics, oxygen, steroids, and bronchodilators. His nasopharyngeal swab PCR detected respiratory syncytial virus. He received symptomatic management. He improved during this hospitalization and is being discharged to [facility] [place]. He was declined for inpatient rehab. His valsartan and carvedilol continue to be on hold. This will need to be reassessed as an outpatient. He also had transaminitis during this hospitalization, with a normal total bilirubin and normal alkaline phosphatase. This was most likely secondary to rhabdomyolysis. Transaminitis improved by the day of discharge. On the day of discharge, he has a sodium of 140, potassium 3.1, which is being replaced and a creatinine 1.92. DISCHARGE MEDICATIONS: ProAir HFA 2 puffs every 4 hours as needed, amiodarone 200 mg daily, Otezla 30 mg 2 times a day, aspirin 81 mg Tuesday, Tuesday, and Tuesday, clobetasol topically 2 times a day, clonidine 0.1 mg 2 times a day, vitamin D2 2000 units daily, fluoxetine 20 mg 3 times a day. Breo Ellipta 1 puff daily, glipizide 5 mg daily, glyburide 5 mg daily, hydralazine 25 mg 3 times a day, hydrocortisone lotion p.r.n., Imdur 120 mg daily, Xyzal 5 mg at bedtime, metolazone 5 mg as needed, multivitamins 1 tablet daily, MiraLax 17 grams daily, potassium chloride 30 mEq 2 times a day, prednisone 40 mg daily to be tapered by 10 mg every other day, Crestor 20 mg daily, Brilinta 90 mg 2 times a day, torsemide 100 mg 2 times a day, Coenzyme Q10 100 mg at bedtime. Many thanks for allowing me to participate in your patient's care. Please feel free to contact me with any questions or concerns. DISCHARGE DESTINATION: Swing bed at [place]. TOTAL AMOUNT OF TIME SPENT COORDINATING THIS DISCHARGE: 33 minutes. PERCY
[2017-07-05] MEDS ORDERED: Potassium Chloride 40 MEQ in Sodium Chloride 0.9% 250 ML 250 ML IVPB SCH (14:30)
[2017-07-05] MEDS ORDERED: Potassium Chloride 20 MEQ TAB PO SCH (14:45)
[2017-07-05 15:22] LABS: ALT (SGPT) 85 U/L (8-55); AST (SGOT) 40 U/L (5-34); Albumin 3.5 g/dL (3.4-4.8); Alkaline Phosphatase 77 U/L (40-150); Bilirubin, Direct 0.3 mg/dL (0.1-0.3); Bilirubin, Total 0.6 mg/dL (0.2-1.2)
[2017-07-05 16:59] VITALS: BP 152/68; TEMP 98.2
== END 2017-07-05 18:11 | disposition swing bed (61) | DRG 291 ==
LOC: ERS 08:41 → 2NO 11:46 → IMCU/EMU 06-23 19:40 → CCU 06-26 11:16 → T4-B 06-28 10:06
PROVIDERS: ADMIT Internal Medicine; ATTEND Internal Medicine
PROC: 5A09357 Assistance with Respiratory Ventilation, Less than 24 Consecutive Hours, Continuous Positive Airway Pressure (ICD-10-PCS; principal; 2017-06-26)
DX: I13.0 Hypertensive heart and chronic kidney disease with heart failure and stage 1 through stage 4 chronic kidney disease, or unspecified chronic kidney disease (principal); J96.21 Acute and chronic respiratory failure with hypoxia; E87.3 Alkalosis; I27.20 Pulmonary hypertension, unspecified; E66.01 Morbid (severe) obesity due to excess calories; B97.4 Respiratory syncytial virus as the cause of diseases classified elsewhere; J96.22 Acute and chronic respiratory failure with hypercapnia; I50.32 Chronic diastolic (congestive) heart failure; J44.1 Chronic obstructive pulmonary disease with (acute) exacerbation; Z68.41 Body mass index [BMI] 40.0-44.9, adult; D64.9 Anemia, unspecified; G47.33 Obstructive sleep apnea (adult) (pediatric); Z87.891 Personal history of nicotine dependence; Z79.82 Long term (current) use of aspirin; N18.3 Chronic kidney disease, stage 3 (moderate); E87.6 Hypokalemia; I48.0 Paroxysmal atrial fibrillation; M06.9 Rheumatoid arthritis, unspecified
CPT/HCPCS: 36415; 36416; 71045; 80048; 80053; 80076; 82330; 82553; 82803; 83735; 83880; 84100; 84484; 85025; 85379; 87633; 87798; 93005; 94640; 94660; 94664; 96374; 96375; A4216; G8978-GP-CJ; G8979-GP-CI; G8987-GO-CK; G8988-GO-CI; G8996-GN-CK; G8997-GN-CJ; J0290; J0360; J1650; J1940; J2704; J2930; J3480; J7050; J7506; J7620

== ENCOUNTER 2017-08-17 10:45 | Outpatient (CLI) | payer MEDICARE ==
--- NOTE | 2017-08-17 11:38 | RAD ---
CHEST TWO VIEWS: History: Dyspnea. Comparison: 06-22-17 FINDINGS: Normal cardiac silhouette. Pulmonary vessels and hilum are normal. Costophrenic angles are clear. Hyp erinflation with chronic changes. No consolidation or mass. No pneumothorax or osseous abnormalities. IMPRESSION: Hyperinflation with chronic changes. No acute process. POS: BRENDA
== END 2017-08-17 10:46 | disposition home or self-care (01) ==
LOC: RAD 10:45
PROVIDERS: ATTEND Internal Medicine
DX: R06.00 Dyspnea, unspecified (principal); J98.4 Other disorders of lung
CPT/HCPCS: 71046

== ENCOUNTER 2017-10-17 09:50 | Outpatient (CLI) | payer MEDICARE ==
--- NOTE | 2017-10-17 11:50 | RAD ---
CHEST TWO VIEWS: History: Dyspnea. Comparison: 08-17-17 FINDINGS: Cardiac silhouette unremarkable. Pulmonary vasculature upper limits of normal. Mediastinum midline. N o confluent airspace consolidation, pneumothorax, or pleural fluid. IMPRESSION: No active cardiopulmonary abnormalities are demonstrated. POS: [facility]
== END 2017-10-17 09:51 | disposition home or self-care (01) ==
LOC: RAD 09:50
PROVIDERS: ATTEND Internal Medicine
DX: R06.00 Dyspnea, unspecified (principal)
CPT/HCPCS: 71046

== ENCOUNTER 2018-06-12 07:53 | Inpatient (IN) | payer MEDICARE ==
[2018-06-12 08:36] LABS: #Eosinphils 0.2 thou/uL (0.0-0.7); #Lymphocytes 1.6 thou/uL (1.20-3.40); #Monocytes 0.6 thou/uL (0.11-0.59); #Neutrophils 10.3 thou/uL (1.40-6.50); %Basophils 0.4 % (0.0-1.0); %Eosinophils 1.9 % (0.0-10.0); %Lymphocytes 12.2 % (21.0-51.0); %Monocytes 4.9 % (0.0-10.0); %Neutrophils 80.7 % (42.0-75.0); Hemoglobin 10.8 g/dL (14.0-18.0); Mean Corpuscular HGB CONC 32.1 g/dL (32.0-36.0); Mean Corpuscular Hemoglobin 25.6 pg (27.0-31.0); Mean Corpuscular Volume 79.9 fL (78.0-98.0); Mean Platelet Volume 7.2 fL (7.4-10.4); Platelet Count 267 thou/uL (130-400); RBC Distribution Width 15.2 % (11.5-14.5); White Blood Cell (WBC) Count 12.8 thou/uL (4.8-10.8)
[2018-06-12 08:48] LABS: ALT (SGPT) 27 U/L (8-55); AST (SGOT) 26 U/L (5-34); Albumin 3.5 g/dL (3.4-4.8); Alkaline Phosphatase 83 U/L (40-150); Anion Gap 14 mmol/L (10-20); BUN (Urea Nitrogen) 22 mg/dL (8.4-25.7); Bilirubin, Total 0.8 mg/dL (0.2-1.2); Calc. Creatinine Clearance 0 mL/min (70-130); Calcium 8.8 mg/dL (7.8-10.44); Carbon Dioxide 30 mmol/L (23-31); Chloride 100 mmol/L (98-107); Estimated GFR-MDRD 38; Globulin 3.5 g/dL (2.4-3.5); Glucose 226 mg/dL (83-110); Potassium 3.3 mmol/L (3.5-5.1); Sodium 141 mmol/L (136-145)
[2018-06-12 09:10] LABS: CKMB 3.5 ng/mL (0-6.6)
--- NOTE | 2018-06-12 09:18 | RAD ---
CHEST ONE VIEW: History: 78-year-old male with history of dyspnea and COPD. Comparison: 10-17-17 FINDINGS: Minimal cardiomegaly. Developing bilateral vascular congestion. No new confluent pneumonia. Slight bl unting of the costophrenic angles. IMPRESSION: Developing bilateral vascular congestion and cardiomegaly. No confluent pneumonia or overt edema. POS: OFF
[2018-06-12] MEDS ORDERED: Zolpidem Tartrate 5 MG TAB PO PRN (11:57)
[2018-06-12] MEDS ORDERED: Acetaminophen 325 MG TAB PO PRN (11:57)
[2018-06-12] MEDS ORDERED: Ondansetron ODT 4 MG TAB PO PRN (11:57)
[2018-06-12] MEDS ORDERED: Dextrose 50% Abboject 50 ML SYRINGE SLOW IVP PRN (12:09)
[2018-06-12] MEDS ORDERED: Dextrose 5% in Water 1,000 ML IV PRN (12:09)
--- NOTE | 2018-06-12 13:15 | HP ---
PRIMARY CARE PROVIDER: Anselmo Reese MD HISTORY OF PRESENT ILLNESS: The patient presents with worsening shortness of breath. His legs have been swelling. He states over the past week, they have had multiple holiday parties with lots of salty foods. He has 2 to 3 pillow orthopnea. Denies any chest pain. No cough. Legs have been swelling. He has some generalized malaise and fatigue. PAST MEDICAL HISTORY: Pertinent for chronic obstructive pulmonary disease, hypertension, diastolic heart failure, paroxysmal atrial fibrillation, obstructive sleep apnea, morbid obesity, pulmonary hypertension, rheumatoid arthritis, psoriasis, depression, multivessel coronary artery disease. MEDICATIONS: He states he does not know his medicines, but they are the same as they have been for the past 2 years. These include: 1. Coreg 6.25 twice a day. 2. Fluoxetine 20 mg three times a day. 3. Glyburide 5 mg a day. 4. Aspirin 81 mg a day. 5. Valsartan 320 mg a day. 6. Coenzyme Q10 of 100 mg a day. 7. Brilinta 90 mg twice a day. 8. Crestor 20 mg a day. 9. Metolazone 5 mg a day. 10. Amiodarone 200 mg a day. 11. Budesonide inhaler. 12. Breo Ellipta. 13. Torsemide 100 mg twice a day. ALLERGIES: HE HAS NO KNOWN DRUG ALLERGIES. FAMILY HISTORY: No history of lung disease or vascular disease. SOCIAL HISTORY: Ex-smoker. No alcohol or illicit drugs. Lives with his . Full code status. , next of kin. REVIEW OF SYSTEMS: GENERAL: Malaise, fatigue. No dizziness, fainting, or headaches. EYES: He has cataracts. Surgery planned. EARS, NOSE AND THROAT: Hard of hearing. He has had tubes put in his ears with no relief. No ear pain or drainage. No nasal bleeding. No trouble swallowing. CARDIAC: See present illness. RESPIRATIONS: Chronic shortness of breath with no cough, wheezing, or asthma. GASTROINTESTINAL: No nausea, vomiting, diarrhea, or constipation. No melena. GENITOURINARY: No hematuria or dysuria. MUSCULOSKELETAL: Recent very significant swelling in his legs after fried chicken, salty foods, etc. NEUROLOGIC: No history of CVAs or focal weakness. PSYCHIATRIC: No anxiety or depression. SKIN: Easy bruising. No rash. HEME/LYMPH: No tender swollen lymph nodes in his axilla, inguinal, or cervical area. PHYSICAL EXAMINATION: GENERAL: He is alert, oriented, cooperative gentleman. VITAL SIGNS: He has chronic home O2 at 3 L, his blood pressure 125/84, pulse 60, respirations 17, temperature 98.2. HEAD, EYES, EARS, NOSE, AND THROAT: Reveal pupils seen are equal, round, and reactive. Extraocular movements intact. Bilateral cataracts present. Tympanic membranes are clear. Nose is clear. Oral mucous membranes are clear. Dental hygiene is good. NECK: Supple without jugular venous distention, adenopathy, or thyromegaly. CHEST: Breath sounds are a little distant. He is a large man, but he definitely has no wheezing and he has bilateral lower lobe rales. HEART: Has a regular rate and rhythm. First and second heart sounds are clear. There are no appreciated murmurs or gallops. ABDOMEN: Protuberant. No hepatosplenomegaly, masses, or bruits. Bowel sounds are normal. EXTREMITIES: Reveal 3+ pitting edema with no cyanosis or clubbing. Pulses; carotid, radial, femoral, and dorsalis pedis pulses palpable and symmetric. SKIN: Warm and dry with some minor ecchymosis on his arms. LYMPHATIC: Reveals no tender or swollen lymph nodes in axilla, inguinal, or cervical area. NEUROLOGIC: Cranial nerves 2 through 12 intact. Deep tendon reflexes diminished. Moves all extremities. DIAGNOSTIC STUDIES: EKG; regular sinus rhythm, first degree AV block, no ST-T abnormality, reviewed by me. Chest x-ray, borderline cardiomegaly, CHF with hazy diaphragms, blunting of the costophrenic angles, pulmonary vascular congestion, reviewed by me. LABORATORY DATA: White count 12.8, hemoglobin 10.8, platelet count 267,000. Comprehensive metabolic profile mildly diminished potassium at 3.3, creatinine 1.76. I have reviewed his records a year ago. It was actually higher in the 1.99 range. His troponins are 0.056, 0.071. BNP is only 158. ADMITTING DIAGNOSES: 1. Acute on chronic diastolic heart failure. 2. Coronary artery disease with demand ischemia. 3. Paroxysmal atrial fibrillation in regular sinus rhythm. 4. Chronic obstructive pulmonary disease. 5. Hypokalemia. ASSESSMENT AND PLAN: The patient's physical exam etc. is consistent with acute diastolic heart failure secondary to dietary indiscretions. He will be started on IV Lasix. I have asked to have his home medicines confirmed. He does have some elevated troponins, which are probably related to demand ischemia and coronary artery disease. However, he has a history of not being a candidate for invasive procedures. Cardiology will be called during his hospital stay. He has type 2 diabetes. Accu-Cheks and sliding scale will be followed for now as I attempt to ascertain his true home medications. I suspect the patient will be in the hospital for 3 to 4 days. Job ID: [id number]
[2018-06-12] MEDS ORDERED: Furosemide 40 MG/4 ML VIAL ONE (16:08)
[2018-06-12] MEDS: Furosemide 40 MG/4 ML VIAL SLOW IVP SCH (16:13)
[2018-06-12] MEDS: hydrALAZINE 25 MG TAB PO SCH ×2 (18:11→21:47)
[2018-06-12] MEDS ORDERED: HumaLOG 300 UNITS/3 ML VIAL ONE (18:34)
[2018-06-12] MEDS: HumaLOG 300 UNITS/3 ML VIAL SC PRN ×2 (18:38→21:51)
[2018-06-12] MEDS ORDERED: hydrALAZINE 25 MG TAB ONE (21:45)
[2018-06-12] MEDS: Rosuvastatin 20 MG TAB PO SCH (21:48)
[2018-06-13 04:17] LABS: Anion Gap 17 mmol/L (10-20); BUN (Urea Nitrogen) 28 mg/dL (8.4-25.7); Calc. Creatinine Clearance 71 mL/min (70-130); Calcium 9.6 mg/dL (7.8-10.44); Carbon Dioxide 30 mmol/L (23-31); Chloride 98 mmol/L (98-107); Estimated GFR-MDRD 38; Glucose 173 mg/dL (83-110); Sodium 141 mmol/L (136-145)
[2018-06-13] MEDS ORDERED: Furosemide 40 MG/4 ML VIAL ONE (05:22)
[2018-06-13] MEDS: Furosemide 40 MG/4 ML VIAL SLOW IVP SCH (05:25)
[2018-06-13] MEDS: HumaLOG 300 UNITS/3 ML VIAL SC PRN ×3 (07:18→18:04)
[2018-06-13] MEDS: Enoxaparin Sodium 40 MG/0.4 ML SYRINGE SC SCH (11:17)
[2018-06-13] MEDS: hydrALAZINE 25 MG TAB PO SCH ×3 (11:19→21:02)
[2018-06-13] MEDS ORDERED: Metolazone 5 MG TAB PO PRN (13:44)
--- NOTE | 2018-06-13 13:48 | PDOC.PN ---
- Subjective Encounter Start Date: 06/13/18 Encounter Start Time: 13:46 Subjective: still sob, leg edema - Objective Resuscitation Status - Order Detail: 06/12/18 11:52 Resuscitation Status Routine Resuscitation Status: FULL: Full Resuscitation MAR Reviewed: Yes Vital Signs & Weight: Vital Signs (12 hours) Temp Pulse Resp BP Pulse Ox 06/13/18 11:19 83 06/13/18 10:10 83 22 H 92 L 06/13/18 07:00 97.6 F 65 22 H 174/86 H 96 06/13/18 03:17 97 06/13/18 03:13 97.9 F 67 20 149/77 H 97 Weight Weight 392 lb 6.765 oz I&O: 06/12/18 06/13/18 06/14/18 06:59 06:59 06:59 Intake Total 180 Output Total 250 100 Balance -70 -100 Result Diagrams: 06/12/18 08:17 06/13/18 03:48 Additional Labs: Accuchecks 06/13/18 06/13/18 06/12/18 12:43 07:18 21:52 POC Glucose 249 H 164 H 182 H 06/12/18 18:18 POC Glucose 359 H Phys Exam - Physical Examination Neck: no JVD basilar rales, OW clear Cardiovascular: RRR, no significant murmur Gastrointestinal: soft, positive bowel sounds 3+ edema Dx/Plan (1) Acute on chronic diastolic (congestive) heart failure Code(s): I50.33 - ACUTE ON CHRONIC DIASTOLIC (CONGESTIVE) HEART FAILURE Status : Acute (2) Acute on chronic respiratory failure with hypoxia Code(s): J96.21 - ACUTE AND CHRONIC RESPIRATORY FAILURE WITH HYPOXIA Status: Acute (3) CKD (chronic kidney disease) Code(s): N18.9 - CHRONIC KIDNEY DISEASE, UNSPECIFIED Status: Chronic Qualifiers: Chronic kidney disease stage: stage 3 (moderate) Qualified Code(s): N18.3 - Chronic kidney disease, stage 3 (moderate) (4) Dyslipidemia Code(s): E78.5 - HYPERLIPIDEMIA, UNSPECIFIED Status: Chronic (5) HTN (hypertension) Code(s): I10 - ESSENTIAL (PRIMARY) HYPERTENSION Status: Chronic Qualifiers: Hypertension type: essential hypertension Qualified Code(s): I10 - Essential (primary) hypertension (6) Paroxysmal atrial fibrillation Code(s): I48.0 - PAROXYSMAL ATRIAL FIBRILLATION Status: Chronic Comment: (7) Sleep apnea, obstructive Code(s): G47.33 - OBSTRUCTIVE SLEEP APNEA (ADULT) (PEDIATRIC) Status: Chronic - Plan increase lasix to 80mg bid, start zaroxolyn po -: cont accu/ss/ start glipizide -: reinstitute brilinta * .
[2018-06-13] MEDS: Amiodarone 200 MG TAB PO SCH (14:16)
[2018-06-13] MEDS: Furosemide 100 MG/10 ML VIAL SLOW IVP SCH (15:17)
[2018-06-13] MEDS ORDERED: Potassium Chloride 20 MEQ TAB PO SCH (17:00)
[2018-06-13] MEDS: Potassium Chloride 10 MEQ TAB PO SCH (17:50)
[2018-06-13] MEDS: FLUoxetine HCl 20 MG CAP PO SCH (21:02)
[2018-06-13] MEDS: Ubidecarenone 50 MG CAP PO SCH (21:02)
[2018-06-13] MEDS: cloNIDine 0.1 MG TAB PO SCH (21:03)
[2018-06-13] MEDS: Rosuvastatin 20 MG TAB PO SCH (21:03)
[2018-06-13] MEDS: TICAGRELOR 90 MG TABLET PO SCH (21:03)
[2018-06-14] MEDS: Furosemide 100 MG/10 ML VIAL SLOW IVP SCH ×2 (05:10→13:45)
[2018-06-14 05:46] LABS: Anion Gap 12 mmol/L (10-20); BUN (Urea Nitrogen) 32 mg/dL (8.4-25.7); Calc. Creatinine Clearance 77 mL/min (70-130); Carbon Dioxide 33 mmol/L (23-31); Chloride 100 mmol/L (98-107); Estimated GFR-MDRD 39; Glucose 159 mg/dL (83-110); Potassium 3.2 mmol/L (3.5-5.1); Sodium 142 mmol/L (136-145)
[2018-06-14] MEDS: Amiodarone 200 MG TAB PO SCH (08:20)
[2018-06-14] MEDS: Potassium Chloride 10 MEQ TAB PO SCH ×3 (08:20→16:33)
[2018-06-14] MEDS: FLUoxetine HCl 20 MG CAP PO SCH ×2 (08:21→20:14)
[2018-06-14] MEDS: cloNIDine 0.1 MG TAB PO SCH ×2 (08:21→20:13)
[2018-06-14] MEDS: Enoxaparin Sodium 40 MG/0.4 ML SYRINGE SC SCH (08:21)
[2018-06-14] MEDS: glipiZIDE 5 MG TAB PO SCH (08:21)
[2018-06-14] MEDS: hydrALAZINE 25 MG TAB PO SCH ×3 (08:21→20:14)
[2018-06-14] MEDS: TICAGRELOR 90 MG TABLET PO SCH ×2 (08:22→20:13)
--- NOTE | 2018-06-14 10:24 | PDOC.PN ---
- Subjective Encounter Start Date: 06/14/18 Encounter Start Time: 10:22 Subjective: less sob, less edema - Objective Resuscitation Status - Order Detail: 06/12/18 11:52 Resuscitation Status Routine Resuscitation Status: FULL: Full Resuscitation MAR Reviewed: Yes Vital Signs & Weight: Vital Signs (12 hours) Temp Pulse Resp BP BP Pulse Ox 06/14/18 08:08 98 F 74 18 138/70 96 06/14/18 04:00 98.3 F 69 20 111/55 L 93 L 06/13/18 23:56 68 128/59 L Weight Weight 322 lb 9.6 oz I&O: 06/13/18 06/14/18 06/15/18 06:59 06:59 06:59 Intake Total 180 Output Total 250 100 Balance -70 -100 Result Diagrams: 06/12/18 08:17 06/14/18 04:59 Additional Labs: Accuchecks 06/14/18 06/13/18 06/13/18 05:31 23:58 17:50 POC Glucose 173 H 215 H 188 H 06/13/18 12:43 POC Glucose 249 H Phys Exam - Physical Examination Neck: no JVD decreased BSWO wheezes Cardiovascular: RRR, no significant murmur Gastrointestinal: soft, positive bowel sounds Musculoskeletal: edema present 2+ Dx/Plan (1) Acute on chronic diastolic (congestive) heart failure Code(s): I50.33 - ACUTE ON CHRONIC DIASTOLIC (CONGESTIVE) HEART FAILURE Status : Acute (2) Acute on chronic respiratory failure with hypoxia Code(s): J96.21 - ACUTE AND CHRONIC RESPIRATORY FAILURE WITH HYPOXIA Status: Acute (3) CKD (chronic kidney disease) Code(s): N18.9 - CHRONIC KIDNEY DISEASE, UNSPECIFIED Status: Chronic Qualifiers: Chronic kidney disease stage: stage 3 (moderate) Qualified Code(s): N18.3 - Chronic kidney disease, stage 3 (moderate) (4) Dyslipidemia Code(s): E78.5 - HYPERLIPIDEMIA, UNSPECIFIED Status: Chronic (5) HTN (hypertension) Code(s): I10 - ESSENTIAL (PRIMARY) HYPERTENSION Status: Chronic Qualifiers: Hypertension type: essential hypertension Qualified Code(s): I10 - Essential (primary) hypertension (6) Paroxysmal atrial fibrillation Code(s): I48.0 - PAROXYSMAL ATRIAL FIBRILLATION Status: Chronic Comment: (7) Sleep apnea, obstructive Code(s): G47.33 - OBSTRUCTIVE SLEEP APNEA (ADULT) (PEDIATRIC) Status: Chronic (8) Acute and chronic respiratory failure Code(s): J96.20 - ACUTE AND CHR RESP FAILURE, UNSP W HYPOXIA OR HYPERCAPNIA Status: Acute Qualifiers: Respiratory failure complication: hypoxia and hypercapnia Qualified Code(s) : J96.21 - Acute and chronic respiratory failure with hypoxia; J96.22 - Acute and chronic respiratory failure with hypercapnia; J96.22 - Acute and chronic respiratory failure with hypercapnia; J96.22 - Acute and chronic respiratory failure with hypercapnia - Plan cont diuresis, O2 requirements reduced -: cont accu/ss/ glipizide -: cont asa, amiodarone -: discussed necessity or low Na diet * .
[2018-06-14] MEDS: Rosuvastatin 20 MG TAB PO SCH (20:14)
[2018-06-14] MEDS: Ubidecarenone 50 MG CAP PO SCH (20:14)
[2018-06-15] MEDS: Furosemide 100 MG/10 ML VIAL SLOW IVP SCH ×2 (05:59→14:53)
--- NOTE | 2018-06-15 08:28 | PDOC.PN ---
- Subjective Encounter Start Date: 06/15/18 Encounter Start Time: 08:27 Subjective: still has some air hunger - Objective Resuscitation Status - Order Detail: 06/12/18 11:52 Resuscitation Status Routine Resuscitation Status: FULL: Full Resuscitation MAR Reviewed: Yes Vital Signs & Weight: Vital Signs (12 hours) Temp Pulse Resp BP Pulse Ox 06/15/18 06:59 94 L 06/15/18 06:58 72 20 94 L 06/15/18 03:24 97.9 F 71 17 160/69 H 96 06/15/18 02:24 71 24 H 95 06/14/18 21:50 71 20 94 L Weight Weight 319 lb 11.2 oz I&O: 06/14/18 06/15/18 06/16/18 06:59 06:59 06:59 Intake Total 1560 Output Total 100 900 Balance -100 660 Result Diagrams: 06/12/18 08:17 06/14/18 04:59 Additional Labs: Accuchecks 06/15/18 06/14/18 06/14/18 05:34 20:37 16:42 POC Glucose 199 H 233 H 129 H 06/14/18 11:13 POC Glucose 176 H Phys Exam - Physical Examination Neck: no JVD Respiratory: clear to auscultation bilateral Cardiovascular: RRR, no significant murmur Gastrointestinal: soft, positive bowel sounds Musculoskeletal: edema present Dx/Plan (1) Acute on chronic diastolic (congestive) heart failure Code(s): I50.33 - ACUTE ON CHRONIC DIASTOLIC (CONGESTIVE) HEART FAILURE Status : Acute (2) Acute on chronic respiratory failure with hypoxia Code(s): J96.21 - ACUTE AND CHRONIC RESPIRATORY FAILURE WITH HYPOXIA Status: Acute (3) CKD (chronic kidney disease) Code(s): N18.9 - CHRONIC KIDNEY DISEASE, UNSPECIFIED Status: Chronic Qualifiers: Chronic kidney disease stage: stage 3 (moderate) Qualified Code(s): N18.3 - Chronic kidney disease, stage 3 (moderate) (4) Dyslipidemia Code(s): E78.5 - HYPERLIPIDEMIA, UNSPECIFIED Status: Chronic (5) HTN (hypertension) Code(s): I10 - ESSENTIAL (PRIMARY) HYPERTENSION Status: Chronic Qualifiers: Hypertension type: essential hypertension Qualified Code(s): I10 - Essential (primary) hypertension (6) Paroxysmal atrial fibrillation Code(s): I48.0 - PAROXYSMAL ATRIAL FIBRILLATION Status: Chronic Comment: (7) Sleep apnea, obstructive Code(s): G47.33 - OBSTRUCTIVE SLEEP APNEA (ADULT) (PEDIATRIC) Status: Chronic (8) Acute and chronic respiratory failure Code(s): J96.20 - ACUTE AND CHR RESP FAILURE, UNSP W HYPOXIA OR HYPERCAPNIA Status: Acute Qualifiers: Respiratory failure complication: hypoxia and hypercapnia Qualified Code(s) : J96.21 - Acute and chronic respiratory failure with hypoxia; J96.22 - Acute and chronic respiratory failure with hypercapnia; J96.22 - Acute and chronic respiratory failure with hypercapnia; J96.22 - Acute and chronic respiratory failure with hypercapnia - Plan ECHO- normal LVEF -: weight coming down -: cont iv diuresis -: cont amiodarone, metalazone -: hopefully home 1-2 days * .
[2018-06-15] MEDS: glipiZIDE 5 MG TAB PO SCH (09:01)
[2018-06-15] MEDS: hydrALAZINE 25 MG TAB PO SCH ×3 (09:02→21:50)
[2018-06-15] MEDS: Potassium Chloride 10 MEQ TAB PO SCH ×3 (09:02→16:29)
[2018-06-15] MEDS: Enoxaparin Sodium 40 MG/0.4 ML SYRINGE SC SCH (09:02)
[2018-06-15] MEDS: FLUoxetine HCl 20 MG CAP PO SCH ×2 (09:02→21:51)
[2018-06-15] MEDS: TICAGRELOR 90 MG TABLET PO SCH ×2 (09:02→21:51)
[2018-06-15] MEDS: Amiodarone 200 MG TAB PO SCH (09:02)
[2018-06-15] MEDS: cloNIDine 0.1 MG TAB PO SCH ×2 (09:03→21:50)
[2018-06-15] MEDS: HumaLOG 300 UNITS/3 ML VIAL SC PRN ×2 (09:03→11:40)
[2018-06-15] MEDS ORDERED: Metolazone 5 MG TAB PO SCH (16:00)
[2018-06-15] MEDS: Rosuvastatin 20 MG TAB PO SCH (21:51)
[2018-06-15] MEDS: Ubidecarenone 50 MG CAP PO SCH (21:51)
[2018-06-16] MEDS: Furosemide 100 MG/10 ML VIAL SLOW IVP SCH ×2 (05:57→14:58)
[2018-06-16] MEDS: Metolazone 5 MG TAB PO SCH (09:20)
[2018-06-16] MEDS: TICAGRELOR 90 MG TABLET PO SCH ×2 (09:20→20:48)
[2018-06-16] MEDS: glipiZIDE 5 MG TAB PO SCH (09:20)
[2018-06-16] MEDS: Amiodarone 200 MG TAB PO SCH (09:20)
[2018-06-16] MEDS: hydrALAZINE 25 MG TAB PO SCH ×3 (09:20→20:49)
[2018-06-16] MEDS: Enoxaparin Sodium 40 MG/0.4 ML SYRINGE SC SCH (09:21)
[2018-06-16] MEDS: Potassium Chloride 10 MEQ TAB PO SCH ×3 (09:21→17:12)
[2018-06-16] MEDS: cloNIDine 0.1 MG TAB PO SCH ×2 (09:25→20:48)
[2018-06-16] MEDS: FLUoxetine HCl 20 MG CAP PO SCH ×2 (09:28→20:53)
[2018-06-16] MEDS: HumaLOG 300 UNITS/3 ML VIAL SC PRN ×2 (12:10→17:12)
--- NOTE | 2018-06-16 12:36 | PRG ---
DATE OF SERVICE: 06/16/2018 SUBJECTIVE: The patient is seen and examined at bedside. He feels significantly better. He does not have any chest pain. His is present in the room during my visit. OBJECTIVE: VITAL SIGNS: Blood pressure is 157/72, pulse is 67, temperature is 98.2, O2 saturation is 95% on 3 L by nasal cannula. His respiratory rate is 20. HEENT: His head is atraumatic and normocephalic. Eyes, PERRLA. Sclerae nonicteric. Oral mucosa is moist. NECK: Supple. Obese. LUNGS: Breath sounds diminished at both bases. Bilateral crackles at both bases present. HEART: S1 and S2, somewhat irregular. No S3. No S4. Sounds are distant. No any murmur. ABDOMEN: Obese, nontender. Bowel sounds present. No organomegaly. EXTREMITIES: 2+ peripheral edema similar bilateral in lower extremities. NEUROLOGICAL EXAMINATION: He is alert and oriented x4. There is no any motor or sensory deficits. Cranial nerves are intact. LABORATORY DATA: Showed glycemia ranging from 129 to 296 and BMP is pending. IMPRESSION: 1. Acute on chronic exacerbation of congestive heart failure with preserved left ventricular ejection fraction. 2. Acute on chronic respiratory failure with hypoxia, combined chronic obstructive pulmonary disease and congestive heart failure related. 3. Chronic kidney disease, chronic. 4. Hypertension. 5. Paroxysmal atrial fibrillation, chronic. 6. Sleep apnea, obstructive, chronic. PLAN: Continue diuresis with Lasix 80 mg IV push twice a day and metolazone. Cardiology consultation with Dr. Godoy who is covering for primary veneer drier, Dr. Farmer. We will continue his amiodarone and we will continue his glipizide, clonidine, aspirin, and coenzyme Q10 along with Crestor, and ticagrelor. Job ID: [id number]
[2018-06-16 12:58] LABS: Anion Gap 15 mmol/L (10-20); BUN (Urea Nitrogen) 27 mg/dL (8.4-25.7); Calc. Creatinine Clearance 70 mL/min (70-130); Calcium 10.2 mg/dL (7.8-10.44); Carbon Dioxide 36 mmol/L (23-31); Chloride 93 mmol/L (98-107); Estimated GFR-MDRD 36; Glucose 144 mg/dL (83-110); Potassium 3.4 mmol/L (3.5-5.1); Sodium 141 mmol/L (136-145)
[2018-06-16] MEDS ORDERED: Potassium Chloride 20 MEQ TAB PO SCH (14:00)
[2018-06-16] MEDS: Rosuvastatin 20 MG TAB PO SCH (20:48)
[2018-06-16] MEDS: Ubidecarenone 50 MG CAP PO SCH (20:49)
[2018-06-17] MEDS: Furosemide 100 MG/10 ML VIAL SLOW IVP SCH ×2 (05:52→13:40)
[2018-06-17 07:40] LABS: Anion Gap 16 mmol/L (10-20); BUN (Urea Nitrogen) 32 mg/dL (8.4-25.7); Calc. Creatinine Clearance 67 mL/min (70-130); Carbon Dioxide 34 mmol/L (23-31); Chloride 91 mmol/L (98-107); Estimated GFR-MDRD 35; Glucose 164 mg/dL (83-110); Sodium 138 mmol/L (136-145)
[2018-06-17 07:52] LABS: Potassium 2.8 mmol/L (3.5-5.1)
--- NOTE | 2018-06-17 09:04 | CON ---
DATE OF CONSULTATION: HISTORY OF PRESENT ILLNESS: Kai Pagan is a 78-year-old white male with longstanding history of coronary artery disease, paroxysmal atrial fibrillation , and diastolic heart failure. In July 2016, he was found to have multivessel coronary artery disease. It was felt that he was not an operative candidate due to his severe COPD. He underwent placement of drug-eluting stents in the LAD, obtuse marginal 1, obtuse marginal 2. He returned several weeks later, underwent drug-eluting stent placement in the right coronary artery and in the right posterior descending artery. He also has history of atrial fibrillation. He has undergone several ablation for this in the past. He was last seen by Dr. Farmer in December 2017 and was to return for followup 4 months later, however did not. He now is admitted with increased shortness of breath and increased leg edema. He has developed 2 to 3 pillow orthopnea. He denies any significant cough or fever. He denies any chest pain. PAST MEDICAL HISTORY: COPD; hypertension; paroxysmal atrial fibrillation, status post multiple ablations; obstructive sleep apnea; diastolic heart failure; morbid obesity; rheumatoid arthritis; psoriasis; depression; coronary artery disease; and diabetes mellitus. MEDICATIONS: 1. Albuterol 2 puffs q.4 hours p.r.n. 2. Amiodarone 200 mg daily. 3. Otezla 30 mg daily. 4. Aspirin 80 daily. 5. Clonidine 0.1 mg b.i.d. 6. Vitamin D2 of 2000 units daily. 7. Fluoxetine b.i.d. 8. Breo one inhalation daily. 9. Glipizide 5 mg daily. 10. Imdur 120 mg q.a.m. 11. Metolazone p.r.n. 12. Rosuvastatin 20 mg daily. 13. Brilinta 90 mg b.i.d. 14. Torsemide 100 mg b.i.d. 15. CoQ10 of 100 mg at bedtime. 16. KCl 10 mEq t.i.d. ALLERGIES: NONE. OPERATIONS: Back surgery and cholecystectomy. SOCIAL HISTORY: He smoked in the past. He does not drink. FAMILY HISTORY: Negative for coronary artery disease. REVIEW OF SYSTEMS: Twelve-point review of systems is otherwise unremarkable. PHYSICAL EXAMINATION: VITAL SIGNS: Blood pressure 130/63, pulse of 60. HEENT: PERRL. NECK: Supple. CHEST: Clear, but distant. CARDIOVASCULAR: S1 and S2 normal without any S3, S4, or murmurs. ABDOMEN: Normal bowel sounds without tenderness. The abdomen is obese. EXTREMITIES: Revealed 2 to 3+ pitting edema. No clubbing or cyanosis. NEUROLOGIC: Grossly intact. SKIN: Warm and dry. LABORATORY DATA: EKG is not on the chart. Echocardiogram revealed the study to be technically difficult. Ejection fraction was 55% to 60%. Otherwise, it was difficult to visualize valvular structures. Hemoglobin 10.8, hematocrit 33.5, white count 12,800, and platelets 267,000. D-dimer 0.51. Sodium 138, potassium 2.8, chloride 91, carbon dioxide 34, BUN 32, and creatinine 1.87. Chest x-ray revealed bilateral vascular congestion and cardiomegaly. Troponin I 0.071. IMPRESSION: 1. Acute on chronic diastolic heart failure. Systolic ejection fraction of 55% to 60%. 2. Coronary artery disease with multi-vessel stenting in 2017 when he was deemed not a candidate for coronary artery bypass grafting. 3. History of paroxysmal atrial fibrillation, status post multiple ablations. Currently, he is in normal sinus rhythm. 4. Chronic obstructive pulmonary disease. 5. Chronic kidney disease. 6. Hypertension. 7. Obesity. 8. Obstructive sleep apnea. 9. Diabetes. 10. Hyperlipidemia. PLAN: The patient will continue with diuresis and monitoring his renal function. He needs to limit his fluid intake to 1500 mL per day. Job ID: [id number] MTDD
[2018-06-17] MEDS: Potassium Chloride 10 MEQ TAB PO SCH ×3 (09:08→17:21)
[2018-06-17] MEDS ORDERED: Potassium Chloride 20 MEQ TAB PO SCH ×2 (09:15→12:30)
[2018-06-17] MEDS: Metolazone 5 MG TAB PO SCH (09:18)
[2018-06-17] MEDS: Enoxaparin Sodium 40 MG/0.4 ML SYRINGE SC SCH (09:18)
[2018-06-17] MEDS: FLUoxetine HCl 20 MG CAP PO SCH ×2 (09:19→20:23)
[2018-06-17] MEDS: glipiZIDE 5 MG TAB PO SCH (09:19)
[2018-06-17] MEDS: TICAGRELOR 90 MG TABLET PO SCH ×2 (09:19→20:22)
[2018-06-17] MEDS: hydrALAZINE 25 MG TAB PO SCH ×3 (09:19→20:23)
[2018-06-17] MEDS: Amiodarone 200 MG TAB PO SCH (09:19)
[2018-06-17] MEDS: cloNIDine 0.1 MG TAB PO SCH ×2 (09:19→20:23)
--- NOTE | 2018-06-17 12:42 | PRG ---
DATE OF SERVICE: 06/17/2018 SUBJECTIVE: The patient is seen and examined at the bedside. He is not feeling any better. He is feeling tired and using his CPAP machine as we speak. OBJECTIVE: VITAL SIGNS: Blood pressure is 153/67, pulse is 70, respiratory rate is 16, O2 saturation is 96% on 3 L by nasal cannula, temperature is 98.2. HEENT: His head is atraumatic and normocephalic. Sclerae are nonicteric. Oral mucosa is moist. NECK: Supple, obese. LUNGS: Breath sounds diminished at both bases with bilateral crackles at both bases. No wheezing. HEART: S1 and S2 distant. No S3. No S4. ABDOMEN: Obese, soft, nontender. EXTREMITIES: 2+ peripheral edema on lower extremities, similar bilaterally. NEUROLOGICAL: He is alert and oriented x4. There is no any motor deficits. Cranial nerves are intact. LABORATORY DATA: Labs showed sodium of 138, potassium 2.8, chloride 91, CO2 is 34, BUN 32, creatinine 1.87, glycemia is ranging from 166 to 259, calcium 10.0, magnesium 2.3. IMPRESSION: 1. [id number] exacerbation of congestive heart failure, diastolic dysfunction with preserved left ventricular ejection fraction. 2. [id number] respiratory failure with hypoxia, combined chronic obstructive pulmonary disease and congestive heart failure related. 3. Chronic kidney disease. 4. Hypertension. 5. Paroxysmal atrial fibrillation, in sinus rhythm now. 6. Sleep apnea, obstructive, chronic. PLAN: Plan is to continue his diuresis with IV Lasix 80 mg IV push twice a day and metolazone. He is putting out more than 4000 mL over the last 24 hours. The patient was seen by Dr. Godoy for Cardiology evaluation. He agrees with continuation of his diuresis. He will continue on his BiPAP and he will continue his p.r.n. DuoNeb. I am going to go up on his glipizide to 10 mg since his glycemia not well controlled. Also, he showed significant hypokalemia this morning, we will supplement him with 40 mEq q.4 hours x3 doses and we will get walking program started. Job ID: [id number]
[2018-06-17] MEDS: Rosuvastatin 20 MG TAB PO SCH (20:22)
[2018-06-17] MEDS: Ubidecarenone 50 MG CAP PO SCH (20:23)
--- NOTE | 2018-06-17 21:59 | EKG ---
Test Reason : Blood Pressure : / mmHG Vent. Rate : 084 BPM Atrial Rate : 084 BPM P-R Int : 232 ms QRS Dur : 100 ms QT Int : 434 ms P-R-T Axes : 081 051 036 degrees QTc Int : 512 ms Sinus rhythm with 1st degree A-V block Otherwise normal ECG Confirmed by LAUREN GARCIA DO ([id number]), communications editor JYOTI LOCKWOOD ([id number] on 06/17/2018 9:58:49 PM Referred By: Confirmed By:LAUREN GARCIA DO
[2018-06-18] MEDS: Furosemide 100 MG/10 ML VIAL SLOW IVP SCH ×2 (05:17→14:18)
[2018-06-18 06:05] LABS: Anion Gap 16 mmol/L (10-20); BUN (Urea Nitrogen) 37 mg/dL (8.4-25.7); Calc. Creatinine Clearance 62 mL/min (70-130); Calcium 10.2 mg/dL (7.8-10.44); Carbon Dioxide 34 mmol/L (23-31); Chloride 90 mmol/L (98-107); Estimated GFR-MDRD 33; Glucose 192 mg/dL (83-110); Sodium 137 mmol/L (136-145)
[2018-06-18 06:09] LABS: Potassium 2.7 mmol/L (3.5-5.1)
[2018-06-18] MEDS: Potassium Chloride 10 MEQ in Premix Bag 1 BAG IVPB SCH ×2 (06:37→10:14)
[2018-06-18] MEDS: hydrOXYzine 25 MG TAB PO PRN (06:59)
--- NOTE | 2018-06-18 07:29 | PDOC.PN ---
- Subjective Encounter Start Date: 06/18/18 Encounter Start Time: 07:27 Subjective: Seen and examined still diuressing ok--feeling a little bit better - Objective Resuscitation Status - Order Detail: 06/12/18 11:52 Resuscitation Status Routine Resuscitation Status: FULL: Full Resuscitation Vital Signs & Weight: Vital Signs (12 hours) Temp Pulse Resp BP BP BP Pulse Ox 06/18/18 07:20 67 18 96 06/18/18 03:37 98.0 F 59 L 16 138/79 97 06/17/18 23:23 97.7 F 71 18 114/60 97 06/17/18 20:23 74 103/52 L Weight Weight 308 lb 3.2 oz I&O: 06/17/18 06/18/18 06/19/18 06:59 06:59 06:59 Intake Total 2040 1300 Output Total 4300 2450 Balance -2260 -1150 Result Diagrams: 06/12/18 08:17 06/18/18 05:11 Additional Labs: Accuchecks 06/18/18 06/17/18 06/17/18 05:53 20:22 16:50 POC Glucose 191 H 276 H 229 H 06/17/18 06/17/18 11:09 05:45 POC Glucose 166 H 147 H Phys Exam - Physical Examination Constitutional: NAD HEENT: PERRLA, moist MMs, sclera anicteric, TM's clear Neck: no nodes, no JVD, supple, full ROM Respiratory: no wheezing, clear to auscultation bilateral Cardiovascular: RRR, no significant murmur, no rub Gastrointestinal: soft, non-tender, no distention, positive bowel sounds Musculoskeletal: pulses present, edema present Dx/Plan (1) Acute and chronic respiratory failure Code(s): J96.20 - ACUTE AND CHR RESP FAILURE, UNSP W HYPOXIA OR HYPERCAPNIA Status: Acute Qualifiers: Respiratory failure complication: hypoxia and hypercapnia Qualified Code(s) : J96.21 - Acute and chronic respiratory failure with hypoxia; J96.22 - Acute and chronic respiratory failure with hypercapnia; J96.22 - Acute and chronic respiratory failure with hypercapnia; J96.22 - Acute and chronic respiratory failure with hypercapnia (2) Acute on chronic diastolic (congestive) heart failure Code(s): I50.33 - ACUTE ON CHRONIC DIASTOLIC (CONGESTIVE) HEART FAILURE Status : Acute (3) Acute on chronic respiratory failure with hypoxia Code(s): J96.21 - ACUTE AND CHRONIC RESPIRATORY FAILURE WITH HYPOXIA Status: Acute (4) Hypokalemia Code(s): E87.6 - HYPOKALEMIA Status: Acute (5) CKD (chronic kidney disease) Code(s): N18.9 - CHRONIC KIDNEY DISEASE, UNSPECIFIED Status: Chronic Qualifiers: Chronic kidney disease stage: stage 3 (moderate) Qualified Code(s): N18.3 - Chronic kidney disease, stage 3 (moderate) (6) DM type 2 (diabetes mellitus, type 2) Status: Chronic (7) Diastolic CHF, acute on chronic Code(s): I50.33 - ACUTE ON CHRONIC DIASTOLIC (CONGESTIVE) HEART FAILURE Status : Chronic Comment: suspect diastolic dysfunction due to hypertensive crisis. - Plan PT/OT, respiratory therapy Continue with diuresis -: Appreciate cardiology input -: Replete potassium and monitor magnessium * .
[2018-06-18] MEDS ORDERED: Potassium Chloride 20 MEQ TAB PO SCH (08:00)
[2018-06-18] MEDS ORDERED: Magnesium Citrate 300 ML BOT PO SCH (08:15)
[2018-06-18] MEDS: Potassium Chloride 20 MEQ TAB PO SCH ×3 (09:55→16:00)
[2018-06-18] MEDS: Amiodarone 200 MG TAB PO SCH (09:55)
[2018-06-18] MEDS: Metolazone 5 MG TAB PO SCH (09:55)
[2018-06-18] MEDS: FLUoxetine HCl 20 MG CAP PO SCH ×2 (09:56→21:42)
[2018-06-18] MEDS: hydrALAZINE 25 MG TAB PO SCH ×3 (09:56→21:42)
[2018-06-18] MEDS: glipiZIDE 5 MG TAB PO SCH (09:56)
[2018-06-18] MEDS: TICAGRELOR 90 MG TABLET PO SCH ×2 (09:57→21:41)
[2018-06-18] MEDS: Enoxaparin Sodium 30 MG/0.3 ML SYRINGE SC SCH (09:58)
[2018-06-18] MEDS: cloNIDine 0.1 MG TAB PO SCH ×2 (11:29→21:41)
[2018-06-18] MEDS: HumaLOG 300 UNITS/3 ML VIAL SC PRN ×2 (11:31→16:31)
[2018-06-18] MEDS ORDERED: Sodium Chloride 0.9% 10 ML ONE (13:30)
[2018-06-18] MEDS: Ubidecarenone 50 MG CAP PO SCH (21:40)
[2018-06-18] MEDS: Rosuvastatin 20 MG TAB PO SCH (21:40)
[2018-06-19 05:51] LABS: Anion Gap 14 mmol/L (10-20); BUN (Urea Nitrogen) 44 mg/dL (8.4-25.7); Calc. Creatinine Clearance 52 mL/min (70-130); Carbon Dioxide 37 mmol/L (23-31); Chloride 90 mmol/L (98-107); Estimated GFR-MDRD 27; Glucose 290 mg/dL (83-110); Sodium 138 mmol/L (136-145)
[2018-06-19 05:57] LABS: Critical Call Chemistry 2NO.HSS0557; Potassium 2.9 mmol/L (3.5-5.1)
[2018-06-19] MEDS: Furosemide 100 MG/10 ML VIAL SLOW IVP SCH (06:21)
[2018-06-19] MEDS ORDERED: Potassium Chloride 20 MEQ TAB PO SCH (07:00)
--- NOTE | 2018-06-19 08:04 | PDOC.PN ---
- Subjective Encounter Start Date: 06/19/18 Encounter Start Time: 08:02 Subjective: Seen and examined still on diuretics - Objective Resuscitation Status - Order Detail: 06/12/18 11:52 Resuscitation Status Routine Resuscitation Status: FULL: Full Resuscitation Vital Signs & Weight: Vital Signs (12 hours) Temp Pulse Resp BP BP BP Pulse Ox 06/19/18 07:29 97.6 F 64 20 118/83 97 06/19/18 04:00 97.5 F L 73 18 168/70 H 95 06/18/18 21:42 73 06/18/18 21:41 133/65 Weight Weight 303 lb I&O: 06/18/18 06/19/18 06/20/18 06:59 06:59 06:59 Intake Total 1780 1560 Output Total 3250 1910 Balance -1470 -350 Result Diagrams: 06/12/18 08:17 06/19/18 04:55 Additional Labs: Accuchecks 06/19/18 06/18/18 06/18/18 05:26 20:42 16:31 POC Glucose 314 H 200 H 208 H 06/18/18 11:18 POC Glucose 332 H Phys Exam - Physical Examination Constitutional: NAD HEENT: PERRLA, moist MMs, sclera anicteric, TM's clear Neck: no nodes, no JVD, supple, full ROM Respiratory: no wheezing, no rales, no rhonchi, clear to auscultation bilateral Cardiovascular: RRR, no significant murmur, no rub Gastrointestinal: soft, non-tender, no distention, positive bowel sounds Musculoskeletal: pulses present, edema present Dx/Plan (1) Acute and chronic respiratory failure Code(s): J96.20 - ACUTE AND CHR RESP FAILURE, UNSP W HYPOXIA OR HYPERCAPNIA Status: Acute Qualifiers: Respiratory failure complication: hypoxia and hypercapnia Qualified Code(s) : J96.21 - Acute and chronic respiratory failure with hypoxia; J96.22 - Acute and chronic respiratory failure with hypercapnia; J96.22 - Acute and chronic respiratory failure with hypercapnia; J96.22 - Acute and chronic respiratory failure with hypercapnia (2) Acute on chronic diastolic (congestive) heart failure Code(s): I50.33 - ACUTE ON CHRONIC DIASTOLIC (CONGESTIVE) HEART FAILURE Status : Acute (3) Acute on chronic respiratory failure with hypoxia Code(s): J96.21 - ACUTE AND CHRONIC RESPIRATORY FAILURE WITH HYPOXIA Status: Acute (4) Hypokalemia Code(s): E87.6 - HYPOKALEMIA Status: Acute (5) CKD (chronic kidney disease) Code(s): N18.9 - CHRONIC KIDNEY DISEASE, UNSPECIFIED Status: Chronic Qualifiers: Chronic kidney disease stage: stage 3 (moderate) Qualified Code(s): N18.3 - Chronic kidney disease, stage 3 (moderate) (6) DM type 2 (diabetes mellitus, type 2) Status: Chronic (7) Diastolic CHF, acute on chronic Code(s): I50.33 - ACUTE ON CHRONIC DIASTOLIC (CONGESTIVE) HEART FAILURE Status : Chronic Comment: suspect diastolic dysfunction due to hypertensive crisis. - Plan PT/OT, manager social work, respiratory therapy Replete potassium -: Monitore renal function closely-may need to de-escalate diuresis -: Dispo planning * .
[2018-06-19] MEDS: Metolazone 5 MG TAB PO SCH (09:28)
[2018-06-19] MEDS: FLUoxetine HCl 20 MG CAP PO SCH ×2 (09:28→20:56)
[2018-06-19] MEDS: glipiZIDE 5 MG TAB PO SCH (09:28)
[2018-06-19] MEDS: Amiodarone 200 MG TAB PO SCH (09:28)
[2018-06-19] MEDS: hydrALAZINE 25 MG TAB PO SCH ×3 (09:28→20:56)
[2018-06-19] MEDS: TICAGRELOR 90 MG TABLET PO SCH ×2 (09:28→20:55)
[2018-06-19] MEDS: Enoxaparin Sodium 30 MG/0.3 ML SYRINGE SC SCH (09:29)
[2018-06-19] MEDS: HumaLOG 300 UNITS/3 ML VIAL SC PRN ×3 (09:29→22:55)
[2018-06-19] MEDS: cloNIDine 0.1 MG TAB PO SCH ×2 (09:38→20:55)
[2018-06-19] MEDS ORDERED: Magnesium Citrate 300 ML BOT PO SCH (13:15)
[2018-06-19] MEDS: Torsemide 100 MG TAB PO SCH (13:38)
[2018-06-19] MEDS: Potassium Chloride 20 MEQ TAB PO SCH (16:13)
[2018-06-19] MEDS: Rosuvastatin 20 MG TAB PO SCH (20:55)
[2018-06-19] MEDS: Ubidecarenone 50 MG CAP PO SCH (20:56)
[2018-06-20 05:51] LABS: BUN (Urea Nitrogen) 46 mg/dL (8.4-25.7); Calc. Creatinine Clearance 55 mL/min (70-130); Calcium 10.4 mg/dL (7.8-10.44); Estimated GFR-MDRD 29; Glucose 175 mg/dL (83-110)
[2018-06-20 06:00] LABS: Anion Gap 21 mmol/L (10-20); Carbon Dioxide 34 mmol/L (23-31); Chloride 87 mmol/L (98-107); Sodium 139 mmol/L (136-145)
[2018-06-20 06:04] LABS: Potassium 2.7 mmol/L (3.5-5.1)
[2018-06-20] MEDS: Potassium Chloride 10 MEQ in Premix Bag 1 BAG IVPB SCH ×2 (07:19→09:52)
[2018-06-20] MEDS: TICAGRELOR 90 MG TABLET PO SCH ×2 (09:42→20:43)
[2018-06-20] MEDS: cloNIDine 0.1 MG TAB PO SCH ×2 (09:42→23:46)
[2018-06-20] MEDS: FLUoxetine HCl 20 MG CAP PO SCH ×2 (09:43→20:43)
[2018-06-20] MEDS: hydrALAZINE 25 MG TAB PO SCH ×3 (09:43→20:43)
[2018-06-20] MEDS: glipiZIDE 5 MG TAB PO SCH (09:43)
[2018-06-20] MEDS: Potassium Chloride 20 MEQ TAB PO SCH ×4 (09:43→18:13)
[2018-06-20] MEDS: Amiodarone 200 MG TAB PO SCH (09:44)
[2018-06-20] MEDS: Enoxaparin Sodium 30 MG/0.3 ML SYRINGE SC SCH (09:44)
[2018-06-20] MEDS: Torsemide 100 MG TAB PO SCH ×2 (09:58→15:18)
[2018-06-20] MEDS: HumaLOG 300 UNITS/3 ML VIAL SC PRN ×2 (12:03→20:48)
--- NOTE | 2018-06-20 12:59 | PRG ---
DATE OF SERVICE: 06/20/2018 SUBJECTIVE: The patient is seen and examined at the bedside. He is feeling significantly better. He lost a lot of swelling in his lower extremities. His breathing is improved. He still requires 3 L of nasal cannula. OBJECTIVE: VITAL SIGNS: Blood pressure is 148/64, pulse is 80, respiratory rate is 20, O2 saturation is 95% on 3 L by nasal cannula, and his temperature is 97.8. HEENT: His head is atraumatic and normocephalic. Eyes are PERRLA. Sclerae nonicteric. Oral mucosa is moist. NECK: Supple. LUNGS: Breath sounds diminished at both bases. HEART: S1 and S2 normal. No S3. No S4. ABDOMEN: Obese, nontender, and nondistended. EXTREMITIES: 1+ peripheral edema similar bilaterally. NEUROLOGIC: He is alert and oriented x4. There is no any sensory or motor deficits present. Cranial nerves are intact. His balance is -1920. LABORATORY DATA: Labs showed sodium of 139, potassium 2.7, chloride 87, BUN 46, CO2 of 34, creatinine 2.24, glycemia is ranging from 158 to 317, and magnesium is 2.9. TSH is 4.3. Calcium 10.4. IMPRESSION: 1. Acute on chronic exacerbation of congestive heart failure, diastolic dysfunction with preserved left ventricular ejection fraction. 2. Acute on chronic respiratory failure with hypoxemia, combined chronic obstructive pulmonary disease and congestive heart failure related. 3. Chronic kidney disease. It looks like creatinine is getting stabilized. 4. Hypertension. 5. Paroxysmal atrial fibrillation, in sinus rhythm now. 6. Sleep apnea, obstructive, chronic. 7. Hypokalemia. PLAN: Plan is to replace his potassium with 40 mEq of KCl q.4 hours x3 today. His magnesium was elevated, so it was stopped. We will continue his current regimen. He seems to be improving daily and should be going home soon. Job ID: [id number]
[2018-06-20] MEDS: Ubidecarenone 50 MG CAP PO SCH (20:43)
[2018-06-20] MEDS ORDERED: Insulin Glargine 10 UNITS in Pre-Filled Syringe 1 EACH SC SCH (21:00)
[2018-06-20] MEDS: Rosuvastatin 20 MG TAB PO SCH (22:16)
[2018-06-21 05:09] LABS: #Basophils 0.1 thou/uL (0.0-0.2); #Eosinphils 0.3 thou/uL (0.0-0.7); #Lymphocytes 3.2 thou/uL (1.20-3.40); #Monocytes 1.2 thou/uL (0.11-0.59); #Neutrophils 7.4 thou/uL (1.40-6.50); %Basophils 0.5 % (0.0-1.0); %Eosinophils 2.5 % (0.0-10.0); %Lymphocytes 26.4 % (21.0-51.0); %Monocytes 9.8 % (0.0-10.0); %Neutrophils 60.7 % (42.0-75.0); Hemoglobin 12.2 g/dL (14.0-18.0); Mean Corpuscular HGB CONC 32.2 g/dL (32.0-36.0); Mean Corpuscular Hemoglobin 25.6 pg (27.0-31.0); Mean Corpuscular Volume 79.6 fL (78.0-98.0); Mean Platelet Volume 7.6 fL (7.4-10.4); Platelet Count 310 thou/uL (130-400); RBC Distribution Width 15.3 % (11.5-14.5); Red Blood Cell (RBC) Count 4.77 mill/uL (4.70-6.10); White Blood Cell (WBC) Count 12.2 thou/uL (4.8-10.8)
[2018-06-21 05:33] LABS: BUN (Urea Nitrogen) 54 mg/dL (8.4-25.7); Calc. Creatinine Clearance 50 mL/min (70-130); Calcium 10.2 mg/dL (7.8-10.44); Estimated GFR-MDRD 26; Glucose 143 mg/dL (83-110)
[2018-06-21 05:36] LABS: Potassium 2.5 mmol/L (3.5-5.1)
[2018-06-21 05:42] LABS: Anion Gap 19 mmol/L (10-20); Carbon Dioxide 37 mmol/L (23-31); Chloride 86 mmol/L (98-107); Sodium 139 mmol/L (136-145)
[2018-06-21] MEDS: Potassium Chloride 20 MEQ TAB PO SCH ×2 (06:43→10:02)
[2018-06-21] MEDS: Torsemide 100 MG TAB PO SCH (09:49)
[2018-06-21] MEDS: hydrALAZINE 25 MG TAB PO SCH ×3 (09:50→21:44)
[2018-06-21] MEDS: FLUoxetine HCl 20 MG CAP PO SCH ×2 (09:50→21:45)
[2018-06-21] MEDS: cloNIDine 0.1 MG TAB PO SCH ×2 (09:50→21:45)
[2018-06-21] MEDS: TICAGRELOR 90 MG TABLET PO SCH ×2 (09:50→21:44)
[2018-06-21] MEDS: Amiodarone 200 MG TAB PO SCH (09:50)
[2018-06-21] MEDS: Enoxaparin Sodium 30 MG/0.3 ML SYRINGE SC SCH (09:50)
[2018-06-21] MEDS: glipiZIDE 5 MG TAB PO SCH (09:50)
[2018-06-21 13:11] LABS: Potassium 2.9 mmol/L (3.5-5.1)
--- NOTE | 2018-06-21 15:09 | PRG ---
DATE OF SERVICE: 06/21/2018 SUBJECTIVE: The patient is seen and examined at bedside. He is complaining about not having enough water to drink with his meals. He feels significantly better, otherwise. OBJECTIVE: VITAL SIGNS: Blood pressure is 119/51, pulse is 90, respirations 18, temperature is 97.6, O2 saturation is 95% on 3 L by nasal cannula. HEENT: His head is atraumatic and normocephalic. Eyes are PERRLA. Sclerae nonicteric. Oral mucosa is moist. NECK: Supple. LUNGS: Breath sounds diminished at both bases with crackles at the bases bilaterally. HEART: S1, S2, somewhat distant. No S3. No S4. ABDOMEN: Obese, nontender. EXTREMITIES: 1 to 2+ peripheral edema similar bilaterally. NEUROLOGICAL EXAMINATION: He is alert and oriented x4. There is no any motor or sensory deficits present. Cranial nerves are intact. LABORATORY DATA: Labs showed white count of 12.2, hemoglobin 12.2, hematocrit 38.0, platelet count is 310. His sodium is 139, potassium 2.5, chloride 86, CO2 of 37, BUN 54, creatinine 2.4. Glycemia is ranging from 176 to 392. Calcium is 10.2. IMPRESSION: 1. Acute on chronic exacerbation of congestive heart failure, diastolic dysfunction with preserved left ventricular ejection fraction. 2. Acute on chronic respiratory failure with hypoxemia, combined chronic obstructive pulmonary disease with congestive heart failure. 3. Chronic kidney disease. Creatinine up to 2.4. 4. Hypertension. 5. Paroxysmal atrial fibrillation, in sinus rhythm now. 6. Sleep apnea, obstructive, chronic. 7. Hypokalemia, recurrent with normal magnesium level. PLAN: Replace his potassium today with four doses of 40 mEq of potassium each. Cut back on his diuretics. To have those, he will be on a torsemide 50 mg starting tomorrow twice a day instead of 100, and no more Demadex tonight. He will continue his ticagrelor and his Lovenox since he is on aspirin and Brilinta. We will change his insulin glargine to 30 units every morning instead of 10 since his glycemia is out of control at this point. We will continue his amiodarone 200 mg once a day and we will keep him on fluid restriction orally at 1500 mL. We will recheck his potassium level tomorrow morning. Job ID: [id number]
[2018-06-21] MEDS ORDERED: Potassium Chloride 20 MEQ TAB PO SCH ×2 (16:00→20:00)
[2018-06-21] MEDS: HumaLOG 300 UNITS/3 ML VIAL SC PRN ×2 (17:35→21:45)
[2018-06-21] MEDS: Ubidecarenone 50 MG CAP PO SCH (21:44)
[2018-06-21] MEDS: Rosuvastatin 20 MG TAB PO SCH (21:45)
[2018-06-21] MEDS: Insulin Glargine 30 UNITS in Pre-Filled Syringe 1 EACH SC SCH (21:45)
[2018-06-22] MEDS: hydrOXYzine 25 MG TAB PO PRN (03:48)
[2018-06-22 07:50] LABS: Anion Gap 17 mmol/L (10-20); BUN (Urea Nitrogen) 57 mg/dL (8.4-25.7); Calc. Creatinine Clearance 50 mL/min (70-130); Calcium 10.1 mg/dL (7.8-10.44); Carbon Dioxide 36 mmol/L (23-31); Chloride 89 mmol/L (98-107); Estimated GFR-MDRD 26; Glucose 154 mg/dL (83-110); Sodium 139 mmol/L (136-145)
[2018-06-22] MEDS: cloNIDine 0.1 MG TAB PO SCH ×2 (09:07→21:34)
[2018-06-22] MEDS: Amiodarone 200 MG TAB PO SCH (09:07)
[2018-06-22] MEDS: FLUoxetine HCl 20 MG CAP PO SCH ×2 (09:08→21:33)
[2018-06-22] MEDS: hydrALAZINE 25 MG TAB PO SCH ×3 (09:08→21:35)
[2018-06-22] MEDS: glipiZIDE 5 MG TAB PO SCH (09:08)
[2018-06-22] MEDS: TICAGRELOR 90 MG TABLET PO SCH ×2 (09:08→21:33)
[2018-06-22] MEDS: Torsemide 100 MG TAB PO SCH ×2 (09:14→14:38)
--- NOTE | 2018-06-22 12:03 | PRG ---
DATE OF SERVICE: 06/22/2018 SUBJECTIVE: The patient is seen and examined at the bedside. He just had a small bowel movement, but he is asking for some help to get better BM because this was not enough. Otherwise, he is feeling better. His appetite is fair. He is on fluid restrictions. He is not happy about this, but he understands the importance of being on it. OBJECTIVE: VITAL SIGNS: Blood pressure is 120/56, pulse is 60, temperature is 97.4, respirations 16, O2 saturation is 97% on 2 L by nasal cannula. His input and output are -30 mL balance. HEENT: His head is atraumatic and normocephalic. Eyes are PERRLA. Sclerae are nonicteric. Oral mucosa is slightly dry. NECK: Supple, obese, and nontender. LUNGS: Breath sounds diminished at both bases with bilateral crackles, significantly diminished. No wheezing. HEART: S1 and S2 normal. No S3. No S4. ABDOMEN: Obese and nontender. EXTREMITIES: 1+ peripheral edema, similar bilaterally on lower extremities. NEUROLOGIC: He is alert and oriented x4. There are no any motor or sensory deficits present. Cranial nerves are intact. LABORATORY DATA: Labs showed sodium of 139, potassium 3.0, chloride 89, CO2 of 36, BUN 57, creatinine 2.42, glycemia is ranging from 173 to 354, calcium 10.1. IMPRESSION: 1. Acute on chronic exacerbation of congestive heart failure with preserved left ventricular ejection fraction and diastolic dysfunction. 2. Acute on chronic respiratory failure with hypoxemia, combined chronic obstructive pulmonary disease and congestive heart failure. 3. Chronic kidney disease. Creatinine is slightly higher than yesterday. 4. Hypertension. 5. Paroxysmal atrial fibrillation, in sinus rhythm now. 6. Sleep apnea, obstructive, chronic. 7. Hypokalemia, recurrent secondary to significant diuresis. PLAN: Plan is to replace his potassium again. His torsemide dose was cut back to half dose what he was on before. We will continue his Lovenox, aspirin, and Brilinta. His glycemia is better after he was placed on 30 units of insulin glargine, which is down to below 200. We will continue his amiodarone and fluid restriction at 1500 mL for 24 hours, and we will follow up on his potassium and creatinine level tomorrow. Job ID: [id number]
[2018-06-22] MEDS: HumaLOG 300 UNITS/3 ML VIAL SC PRN ×2 (12:04→17:46)
[2018-06-22 12:53] VITALS: BMI 39.6
[2018-06-22] MEDS: Potassium Chloride 20 MEQ TAB PO SCH ×2 (17:43→19:16)
[2018-06-22] MEDS ORDERED: Bisacodyl 5 MG TAB PO SCH (21:30)
[2018-06-22] MEDS: Ubidecarenone 50 MG CAP PO SCH (21:33)
[2018-06-22] MEDS: Rosuvastatin 20 MG TAB PO SCH (21:33)
[2018-06-22] MEDS: Senokot S 8.6-50 MG TAB PO SCH (21:34)
[2018-06-22] MEDS: Insulin Glargine 30 UNITS in Pre-Filled Syringe 1 EACH SC SCH (21:36)
[2018-06-23 06:45] LABS: Anion Gap 15 mmol/L (10-20); BUN (Urea Nitrogen) 59 mg/dL (8.4-25.7); Calc. Creatinine Clearance 47 mL/min (70-130); Calcium 9.9 mg/dL (7.8-10.44); Carbon Dioxide 37 mmol/L (23-31); Chloride 88 mmol/L (98-107); Estimated GFR-MDRD 24; Glucose 183 mg/dL (83-110); Sodium 137 mmol/L (136-145)
[2018-06-23 06:48] LABS: Potassium 2.7 mmol/L (3.5-5.1)
[2018-06-23] MEDS: cloNIDine 0.1 MG TAB PO SCH ×2 (08:57→20:58)
[2018-06-23] MEDS: glipiZIDE 5 MG TAB PO SCH (08:58)
[2018-06-23] MEDS: FLUoxetine HCl 20 MG CAP PO SCH ×2 (08:58→20:58)
[2018-06-23] MEDS: TICAGRELOR 90 MG TABLET PO SCH ×2 (08:58→20:58)
[2018-06-23] MEDS: Potassium Chloride 20 MEQ TAB PO SCH ×2 (08:58→16:20)
[2018-06-23] MEDS: hydrALAZINE 25 MG TAB PO SCH ×3 (08:58→20:58)
[2018-06-23] MEDS: Senokot S 8.6-50 MG TAB PO SCH ×2 (08:58→20:58)
[2018-06-23] MEDS: Amiodarone 200 MG TAB PO SCH (08:58)
[2018-06-23] MEDS ORDERED: Bisacodyl 5 MG TAB PO SCH (09:00)
[2018-06-23] MEDS: Torsemide 100 MG TAB PO SCH ×2 (09:02→16:18)
--- NOTE | 2018-06-23 10:46 | PRG ---
DATE OF SERVICE: 06/23/2018 SUBJECTIVE: The patient denies any new complaints at this time. No chest pain. Shortness of breath on exertion. Leg swelling is improving. He still has generalized weakness and tiredness. PHYSICAL EXAMINATION: VITAL SIGNS: Temperature 98, pulse rate 66, blood pressure 120/54 with O2 saturation 97% on 3 L nasal cannula. Intake of 1570, output 1600, weight of 299 pounds. CURRENT MEDICATIONS: Current medications were reviewed. The patient is currently on; 1. Lantus 30 units at bedtime. 2. Amiodarone. 3. Aspirin. 4. Clonidine. 5. Glipizide. 6. Hydralazine. 7. Imdur. PHYSICAL EXAMINATION: GENERAL: A 78-year-old male in no apparent distress at rest. LUNGS: Showed few rales at bases. No significant wheezing or rales. HEART: S1 and S2 present. Regular rate and rhythm. ABDOMEN: Soft, obese. Bowel sounds present. EXTREMITIES: 1+ edema in bilateral lower extremity. LABORATORY FINDINGS: Potassium 2.7 from 3.0 yesterday. Creatinine 2.5, BUN 59. DIAGNOSTIC STUDIES: Telemetry monitoring by my review showed sinus rhythm. IMPRESSION: 1. Acute on chronic diastolic heart failure exacerbation. 2. Acute on chronic hypoxic respiratory failure secondary to #1. 3. Chronic obstructive pulmonary disease. 4. Hypokalemia. 5. Hypertension. 6. Paroxysmal atrial fibrillation. Status post ablations in the past. 7. Obstructive sleep apnea, on CPAP. 8. Obesity with a BMI of 39.7. 9. Coronary artery disease. 10. Diabetes mellitus type 2. 11. Depression without any suicidal ideation. 12. Rheumatoid arthritis. 13. Acute kidney injury, on chronic kidney disease stage 3. 14. Contraction alkalosis. PLAN: The patient will be monitored on telemetry unit. We will replace potassium. Continue aspirin and Brilinta. We will continue torsemide per Cardiology. Recheck labs in the a.m. Continue fluid restriction. Continue nebulizer treatment as needed. We will treat constipation. DISPOSITION: Probably in the morning, if the potassium is normal. Job ID: [id number] [facility]
[2018-06-23] MEDS: HumaLOG 300 UNITS/3 ML VIAL SC PRN ×2 (12:45→18:43)
[2018-06-23] MEDS ORDERED: Potassium Chloride 20 MEQ TAB PO SCH ×2 (18:15→21:00)
[2018-06-23] MEDS: Rosuvastatin 20 MG TAB PO SCH (20:57)
[2018-06-23] MEDS: Ubidecarenone 50 MG CAP PO SCH (20:58)
[2018-06-23] MEDS: Insulin Glargine 30 UNITS in Pre-Filled Syringe 1 EACH SC SCH (21:02)
[2018-06-24 06:05] LABS: Platelet Count 282 thou/uL (130-400)
[2018-06-24 06:32] LABS: Anion Gap 17 mmol/L (10-20); BUN (Urea Nitrogen) 64 mg/dL (8.4-25.7); Calc. Creatinine Clearance 56 mL/min (70-130); Calcium 9.8 mg/dL (7.8-10.44); Carbon Dioxide 35 mmol/L (23-31); Chloride 90 mmol/L (98-107); Estimated GFR-MDRD 29; Glucose 161 mg/dL (83-110); Sodium 139 mmol/L (136-145)
[2018-06-24 06:38] LABS: Potassium 2.6 mmol/L (3.5-5.1)
[2018-06-24] MEDS: Potassium Chloride 20 MEQ TAB PO SCH ×2 (10:31→12:08)
[2018-06-24] MEDS: TICAGRELOR 90 MG TABLET PO SCH ×2 (10:32→20:53)
[2018-06-24] MEDS: hydrALAZINE 25 MG TAB PO SCH ×3 (10:32→20:53)
[2018-06-24] MEDS: Senokot S 8.6-50 MG TAB PO SCH ×2 (10:32→20:54)
[2018-06-24] MEDS: cloNIDine 0.1 MG TAB PO SCH ×2 (10:32→20:52)
[2018-06-24] MEDS: glipiZIDE 5 MG TAB PO SCH (10:33)
[2018-06-24] MEDS: Amiodarone 200 MG TAB PO SCH (10:33)
[2018-06-24] MEDS: FLUoxetine HCl 20 MG CAP PO SCH ×2 (10:33→20:53)
[2018-06-24] MEDS: Torsemide 100 MG TAB PO SCH ×2 (10:38→14:08)
--- NOTE | 2018-06-24 12:19 | CON ---
DATE OF CONSULTATION: TYPE OF CONSULTATION: Nephrology Consultation REASON FOR CONSULTATION: Persistent hypokalemia and CKD. HISTORY OF PRESENT ILLNESS: This is a very pleasant 78-year-old gentleman, admitted for acute kidney injury with CKD. The patient denies any nausea, vomiting, or chest pain. The patient has had persistent hypokalemia since June 12, ranging anywhere from 2.6 to 4.0. The patient denies any complaints like chest pain or orthopnea or PND, but has dyspnea on minimal exertion. PAST MEDICAL HISTORY: Hypertension, atrial fibrillation ablation, obstructive sleep apnea, morbid obesity, rheumatoid arthritis, psoriasis, depression, coronary artery disease, diabetes mellitus, back surgery, and cholecystectomy. MEDICATIONS: Home medications list reviewed. Hospital medication list reviewed. ALLERGIES: REVIEWED. REVIEW OF SYSTEMS: A 15-point review of system was performed and was negative except for positives noted above. NECK: No swelling or lumps. NOSE: No epistaxis or discharge. EYES: No diplopia or pain. MUSCULOSKELETAL: No joint pain. NEUROPSYCHIATIC SYSTEMS: No suicidal ideation. No ideation. SKIN: Denies any rash or ulcer. CONSTITUTIONAL: No fever or chills. PHYSICAL EXAMINATION: CONSTITUTIONAL: The patient is awake and alert. VITAL SIGNS: , pulse 75, breathing 16, and blood pressure was 123/58. GENERAL APPEARANCE AND MENTAL STATUS: Fair. HEAD/NECK: Normocephalic. Atraumatic. EYES: EOMI. No deformity. EARS: Clear. No ulcers. NOSE: Intact. No lesions. MOUTH: Clear. No discharge. THROAT: Clear. No exudate. LUNGS: Clear. No crackles. CARDIAC: S1, S2. No rub. ABDOMEN: Benign. Bowel sounds positive. GENITALIA/RECTUM: Polk absent. BACK/EXTREMITIES: Edema 0+. NEUROLOGICAL: Alert and motor intact. LABORATORY DATA: Labs show potassium is 3.0. ASSESSMENT AND RECOMMENDATIONS: 1. Chronic kidney disease, stage 3, stable. 2. Hypertension, stable. 3. Anemia, stable. 4. Hypokalemia. Recommend 60 mEq of potassium every 8 hours and a very high potassium diet like orange juice. I will recheck the potassium at 4:00 p.m. and please call me with the results. Job ID: [id number]
[2018-06-24] MEDS: HumaLOG 300 UNITS/3 ML VIAL SC PRN ×2 (14:04→18:17)
--- NOTE | 2018-06-24 14:20 | RAD ---
PORTABLE CHEST: Date: 06/12/18 HISTORY: Line placement. FINDINGS: Heart size is enlarged. Right-sided central line is seen. Catheter tip overlies the superior vena cav a. No signs of failure. No evidence of pneumothorax. IMPRESSION: 1. Placement of right-sided central line with catheter tip overlying the superior vena cava. No sign s of pneumothorax. 2. Cardiomegaly. POS: [facility]
[2018-06-24] MEDS ORDERED: Potassium Chloride 20 MEQ in Premix Bag 1 BAG IVPB SCH (16:00)
--- NOTE | 2018-06-24 16:38 | PDOC.PN ---
- Subjective Encounter Start Date: 06/24/18 Encounter Start Time: 11:00 Patient seen and examined for CHF exacerbation. Feels better. No fever/chills. No new complaints. No overnight events - Objective Resuscitation Status - Order Detail: 06/12/18 11:52 Resuscitation Status Routine Resuscitation Status: FULL: Full Resuscitation MAR Reviewed: Yes Vital Signs & Weight: Vital Signs (12 hours) Temp Pulse Resp BP BP Pulse Ox 06/24/18 16:07 69 111/77 06/24/18 14:18 62 24 H 06/24/18 10:32 62 123/58 L 06/24/18 08:00 98 F 62 16 123/58 L 97 Weight Admit Weight 292 lb 6.765 oz Weight 303 lb 12.8 oz I&O: 06/23/18 06/24/18 06/25/18 06:59 06:59 06:59 Intake Total 1450 2500 Output Total 2400 4375 Balance -950 -1875 Result Diagrams: 06/24/18 05:32 06/24/18 10:04 Additional Labs: Accuchecks 06/24/18 06/24/18 06/23/18 11:40 05:49 20:53 POC Glucose 244 H 169 H 239 H 06/23/18 16:50 POC Glucose 203 H EKG Reviewed by me: Yes (Tele SB) Phys Exam - Physical Examination Constitutional: NAD Respiratory: no wheezing, no rhonchi rales at bases Cardiovascular: RRR, no rub Gastrointestinal: soft, non-tender Musculoskeletal: edema present Neurological: non-focal Dx/Plan - Plan DVT proph w/SCDs 1. Acute on chronic diastolic heart failure exacerbation. 2. Acute on chronic hypoxic respiratory failure secondary to #1. 3. Chronic obstructive pulmonary disease. 4. Hypokalemia. 5. Hypertension. 6. Paroxysmal atrial fibrillation. Status post ablations in the past. 7. Obstructive sleep apnea, on CPAP. 8. Obesity with a BMI of 39.7. 9. Coronary artery disease. 10. Diabetes mellitus type 2. 11. Depression without any suicidal ideation. 12. Rheumatoid arthritis. 13. Acute kidney injury, on chronic kidney disease stage 3. 14. Contraction alkalosis. 15. Constipation. PLAN: Replace potassium Continue torsemide per Cardiology. Continue fluid restriction. Continue nebulizer treatment. AM labs Add Miralax Review of Systems - Review of Systems Cardiovascular: negative: chest pain, palpitations, orthopnea, paroxysmal nocturnal dyspnea, edema, light headedness, other Gastrointestinal: negative: Nausea, Vomiting, Abdominal Pain, Diarrhea, Constipation, Melena, Hematochezia, Other - Medications/Allergies Allergies/Adverse Reactions: Allergies Allergy/AdvReac Type Severity Reaction Status Date / Time No Known Allergies Allergy Verified 07/22/16 02:17 Medications: Current Medications Acetaminophen (Tylenol) 650 mg PO Q4H PRN PRN Reason: Headache/Fever/Mild Pain (1-3) Albuterol/Ipratropium (Duoneb) 3 ml NEB Q4H PRN PRN Reason: SOB &/or Wheezing Last Admin: 06/24/18 14:18 Dose: 3 ml Albuterol/Ipratropium (Duoneb) 3 ml NEB [id number] PRN PRN Reason: SOB &/or Wheezing Last Admin: 06/24/18 02:34 Dose: 3 ml Amiodarone HCl (Cordarone) 200 mg PO DAILY [facility] Last Admin: 06/24/18 10:33 Dose: 200 mg Aspirin (Aspirin Chewable) 81 mg PO MoWeFr@0900 [facility] Last Admin: 06/23/18 08:58 Dose: 81 mg Clonidine (Catapres) 0.1 mg PO BID [facility] Last Admin: 06/24/18 10:32 Dose: 0.1 mg Coenzyme Q10 (Coenzyme Q10) 100 mg PO HS [facility] Last Admin: 06/23/18 20:58 Dose: 100 mg Dextrose/Water (Dextrose 50%) 25 gm SLOW IVP PRN PRN PRN Reason: Hypoglycemia Fluoxetine HCl (Prozac) 20 mg PO BID [facility] Last Admin: 06/24/18 10:33 Dose: 20 mg Glipizide (Glucotrol) 5 mg PO DAILY [facility] Last Admin: 06/24/18 10:33 Dose: 5 mg Glucagon (Glucagon) 1 mg IM PRN PRN PRN Reason: Hypoglycemia Hydralazine HCl (Apresoline) 25 mg PO TID [facility] Last Admin: 06/24/18 16:07 Dose: 25 mg Hydroxyzine HCl (Atarax) 25 mg PO Q6H PRN PRN Reason: .ITCHING Last Admin: 06/22/18 03:48 Dose: 25 mg Dextrose/Water (D5w) 1,000 mls @ 0 mls/hr IV .Q0M PRN PRN Reason: Hypoglycemia Insulin Glargine 30 units/ (Miscellaneous Medication) 0.3 mls @ 0 mls/hr [facility] Last Admin: 06/23/18 21:02 Dose: 0.3 mls Potassium Chloride 20 meq/ (Device) 100 mls @ 50 mls/hr IVPB NOW [facility] Stop: 06/24/18 18:00 Insulin Human Lispro (Humalog) 0 units SC .MILD SLIDING SCALE PRN PRN Reason: Mild Correctional Scale Last Admin: 06/24/18 14:04 Dose: 3 unit Isosorbide Mononitrate (Imdur) 120 mg PO DAILY [facility] Last Admin: 06/24/18 10:34 Dose: 120 mg Ondansetron HCl (Zofran Odt) 4 mg PO Q6H PRN PRN Reason: Nausea/Vomiting Potassium Chloride (Klor-Con) 40 meq PO QID[facility] Last Admin: 06/24/18 16:08 Dose: 40 meq Rosuvastatin Calcium (Crestor) 20 mg PO [facility] Last Admin: 06/23/18 20:57 Dose: 20 mg Senna/Docusate Sodium (Senokot S) 1 tab PO BID [facility] Last Admin: 06/24/18 10:32 Dose: 1 tab Ticagrelor (Brilinta) 90 mg PO BID [facility] Last Admin: 06/24/18 10:32 Dose: 90 mg Torsemide (Demadex) 50 mg PO 0900,1400 [facility] Last Admin: 06/24/18 14:08 Dose: 50 mg Zolpidem Tartrate (Ambien) 5 mg PO HSPRN PRN PRN Reason: Insomnia
[2018-06-24] MEDS ORDERED: Polyethylene Glycol 3350 17 GM Packet PO SCH (16:45)
[2018-06-24 20:05] LABS: Anion Gap 19 mmol/L (10-20); BUN (Urea Nitrogen) 64 mg/dL (8.4-25.7); Calc. Creatinine Clearance 50 mL/min (70-130); Carbon Dioxide 33 mmol/L (23-31); Chloride 88 mmol/L (98-107); Estimated GFR-MDRD 26; Glucose 234 mg/dL (83-110); Potassium 3.5 mmol/L (3.5-5.1); Sodium 136 mmol/L (136-145)
[2018-06-24] MEDS: Rosuvastatin 20 MG TAB PO SCH (20:53)
[2018-06-24] MEDS: Ubidecarenone 50 MG CAP PO SCH (20:54)
[2018-06-24] MEDS: Insulin Glargine 30 UNITS in Pre-Filled Syringe 1 EACH SC SCH (20:55)
[2018-06-25] MEDS: Senokot S 8.6-50 MG TAB PO SCH ×2 (09:19→20:44)
[2018-06-25] MEDS: FLUoxetine HCl 20 MG CAP PO SCH ×2 (09:20→20:44)
[2018-06-25] MEDS: TICAGRELOR 90 MG TABLET PO SCH ×2 (09:21→20:45)
[2018-06-25] MEDS: Torsemide 100 MG TAB PO SCH ×2 (09:21→14:08)
[2018-06-25] MEDS: glipiZIDE 5 MG TAB PO SCH (09:21)
[2018-06-25] MEDS: cloNIDine 0.1 MG TAB PO SCH (09:21)
[2018-06-25] MEDS: hydrALAZINE 25 MG TAB PO SCH ×3 (09:21→20:44)
[2018-06-25] MEDS: Polyethylene Glycol 3350 17 GM Packet PO SCH (09:22)
[2018-06-25] MEDS: Amiodarone 200 MG TAB PO SCH (09:22)
--- NOTE | 2018-06-25 09:23 | PDOC.PN ---
- Subjective Encounter Start Date: 06/25/18 Encounter Start Time: 09:21 Subjective: Seen and examined with no new complaint - Objective Resuscitation Status - Order Detail: 06/12/18 11:52 Resuscitation Status Routine Resuscitation Status: FULL: Full Resuscitation Vital Signs & Weight: Vital Signs (12 hours) Temp Pulse Resp BP BP Pulse Ox 06/25/18 08:00 96.2 F L 56 L 18 137/82 96 06/25/18 04:05 97.5 F L 58 L 16 119/58 L 97 06/24/18 22:11 61 20 98 Weight Admit Weight 292 lb 6.765 oz Weight 306 lb 1.6 oz I&O: 06/24/18 06/25/18 06/26/18 06:59 06:59 06:59 Intake Total 2500 1700 Output Total 4375 3100 Balance -1875 -1400 Result Diagrams: 06/24/18 05:32 06/24/18 19:20 Additional Labs: Accuchecks 06/25/18 06/24/18 06/24/18 05:19 20:22 16:58 POC Glucose 191 H 285 H 170 H 06/24/18 11:40 POC Glucose 244 H Phys Exam - Physical Examination Constitutional: NAD HEENT: PERRLA, moist MMs, sclera anicteric Neck: no nodes, no JVD, supple, full ROM Respiratory: no wheezing, no rhonchi, clear to auscultation bilateral Cardiovascular: RRR, no significant murmur, no rub Gastrointestinal: soft, non-tender, no distention, positive bowel sounds Musculoskeletal: pulses present Dx/Plan (1) Acute and chronic respiratory failure Code(s): J96.20 - ACUTE AND CHR RESP FAILURE, UNSP W HYPOXIA OR HYPERCAPNIA Status: Acute Qualifiers: Respiratory failure complication: hypoxia and hypercapnia Qualified Code(s) : J96.21 - Acute and chronic respiratory failure with hypoxia; J96.22 - Acute and chronic respiratory failure with hypercapnia; J96.22 - Acute and chronic respiratory failure with hypercapnia; J96.22 - Acute and chronic respiratory failure with hypercapnia (2) Acute on chronic diastolic (congestive) heart failure Code(s): I50.33 - ACUTE ON CHRONIC DIASTOLIC (CONGESTIVE) HEART FAILURE Status : Acute (3) Acute on chronic respiratory failure with hypoxia Code(s): J96.21 - ACUTE AND CHRONIC RESPIRATORY FAILURE WITH HYPOXIA Status: Acute (4) Hypokalemia Code(s): E87.6 - HYPOKALEMIA Status: Acute (5) CKD (chronic kidney disease) Code(s): N18.9 - CHRONIC KIDNEY DISEASE, UNSPECIFIED Status: Chronic Qualifiers: Chronic kidney disease stage: stage 3 (moderate) Qualified Code(s): N18.3 - Chronic kidney disease, stage 3 (moderate) (6) DM type 2 (diabetes mellitus, type 2) Status: Chronic (7) Diastolic CHF, acute on chronic Code(s): I50.33 - ACUTE ON CHRONIC DIASTOLIC (CONGESTIVE) HEART FAILURE Status : Chronic Comment: suspect diastolic dysfunction due to hypertensive crisis. (8) Alkalosis, metabolic Code(s): E87.3 - ALKALOSIS Status: Acute - Plan PT/OT, social services designee, respiratory therapy Check ABG if significant contraction alkalosis consider de-escalating -: diuretics vs Diamox for primary Met alkalosis -: F/up potassium level today * .
[2018-06-25] MEDS: HumaLOG 300 UNITS/3 ML VIAL SC PRN ×3 (09:36→18:27)
--- NOTE | 2018-06-25 10:03 | PRG ---
DATE OF SERVICE: 06/25/2018 SUBJECTIVE: A 78-year-old gentleman, being seen for acute kidney injury on CKD. The patient denies any nausea, vomiting, or chest pain. OBJECTIVE: GENERAL: The patient is awake and alert. VITAL SIGNS: Afebrile, pulse 52, breathing 16, blood pressure 130/61. GENERAL APPEARANCE AND MENTAL STATUS: Fair. HEAD/NECK: Normocephalic. Atraumatic. EYES: EOMI. No deformity. EARS: Clear. No ulcers. NOSE: Intact. No lesions. MOUTH: Clear. No discharge. THROAT: Clear. No exudate. LUNGS: Clear. No crackles. CARDIAC: S1, S2. No rub. ABDOMEN: Benign. Bowel sounds positive. GENITALIA/RECTUM: Polk absent. BACK/EXTREMITIES: Edema 0+. NEUROLOGICAL: Alert and motor intact. SKIN: LYMPHATICS: LABORATORY DATA: Potassium is pending. ASSESSMENT AND PLAN: 1. Chronic kidney disease, stage 4, stable. 2. Hypertension, stable. 3. Hypokalemia, improved. I have reordered labs to check the potassium again. Job ID: [id number]
[2018-06-25 10:08] LABS: Anion Gap 17 mmol/L (10-20); BUN (Urea Nitrogen) 56 mg/dL (8.4-25.7); Calc. Creatinine Clearance 60 mL/min (70-130); Calcium 9.7 mg/dL (7.8-10.44); Carbon Dioxide 33 mmol/L (23-31); Chloride 92 mmol/L (98-107); Estimated GFR-MDRD 32; Glucose 196 mg/dL (83-110); Sodium 139 mmol/L (136-145)
[2018-06-25 10:16] LABS: CO2 Tension 49.5 mmHg (35.0-45.0); pH, Arterial 7.45 (7.35-7.45)
[2018-06-25 10:17] LABS: Actual Bicarbonate (HCO3a) 33.9 mEq/L (22-28); Base Excess (BEa) 8.7 mEq/L (-2.0 to +3.0); Hemoglobin (Hb) 12.4 g/dL (14.0-18.0)
[2018-06-25 10:18] LABS: Carboxyhemoglobin (COHb) 0.9 gm% (0.0-3.0)
[2018-06-25 10:19] LABS: Analyzer IN Cardio OR; Calcium, Ionized 1.09 mmol/L (1.12-1.30); Potassium - ABG Lab 2.91 mmol/L (3.70-5.30); Puncture Site LRA
[2018-06-25 10:20] LABS: ALV-art Gradient 87.805 (0-20)
[2018-06-25] MEDS ORDERED: ACETAZOLAMIDE SODIUM IVP SCH (13:15)
[2018-06-25] MEDS ORDERED: SODIUM CHLORIDE 0.9% IVP SCH (13:15)
[2018-06-25] MEDS: Ubidecarenone 50 MG CAP PO SCH (20:45)
[2018-06-25] MEDS: Rosuvastatin 20 MG TAB PO SCH (20:45)
[2018-06-25] MEDS: Insulin Glargine 30 UNITS in Pre-Filled Syringe 1 EACH SC SCH (20:51)
[2018-06-26] MEDS: cloNIDine 0.1 MG TAB PO SCH ×3 (00:56→20:44)
[2018-06-26 06:14] LABS: Anion Gap 17 mmol/L (10-20); BUN (Urea Nitrogen) 52 mg/dL (8.4-25.7); Calc. Creatinine Clearance 59 mL/min (70-130); Calcium 9.9 mg/dL (7.8-10.44); Carbon Dioxide 32 mmol/L (23-31); Chloride 94 mmol/L (98-107); Estimated GFR-MDRD 31; Glucose 154 mg/dL (83-110); Sodium 140 mmol/L (136-145)
[2018-06-26] MEDS: HumaLOG 300 UNITS/3 ML VIAL SC PRN ×3 (06:21→17:09)
[2018-06-26 06:35] LABS: Potassium 2.9 mmol/L (3.5-5.1)
[2018-06-26] MEDS ORDERED: Potassium Chloride 20 MEQ in Premix Bag 1 BAG IVPB SCH (08:15)
[2018-06-26] MEDS ORDERED: Potassium Chloride 20 MEQ TAB PO SCH (08:30)
--- NOTE | 2018-06-26 08:32 | PDOC.PN ---
- Subjective Encounter Start Date: 06/26/18 Encounter Start Time: 08:30 Subjective: Seen and examined feeling same - Objective Resuscitation Status - Order Detail: 06/12/18 11:52 Resuscitation Status Routine Resuscitation Status: FULL: Full Resuscitation Vital Signs & Weight: Vital Signs (12 hours) Temp Pulse Resp BP BP BP Pulse Ox 06/26/18 07:45 98.2 F 68 18 129/55 L 95 06/26/18 06:55 60 16 95 06/26/18 03:44 97.6 F 65 16 128/57 L 93 L 06/26/18 00:56 118/66 06/26/18 00:00 138/63 95 06/25/18 23:22 73 20 95 06/25/18 20:44 69 118/66 Weight Admit Weight 292 lb 6.765 oz Weight 306 lb 6.4 oz I&O: 06/25/18 06/26/18 06/27/18 06:59 06:59 06:59 Intake Total 1700 1960 Output Total 3100 2975 Balance -1400 -1015 Result Diagrams: 06/24/18 05:32 06/26/18 05:03 Additional Labs: Accuchecks 06/26/18 06/25/18 06/25/18 05:31 20:23 16:28 POC Glucose 206 H 318 H 275 H 06/25/18 11:04 POC Glucose 229 H Phys Exam - Physical Examination Constitutional: NAD HEENT: PERRLA, moist MMs, sclera anicteric, TM's clear Neck: no nodes, no JVD, supple, full ROM Respiratory: no wheezing, no rales, no rhonchi Cardiovascular: RRR, no significant murmur, no rub Gastrointestinal: soft, positive bowel sounds obese Musculoskeletal: pulses present Dx/Plan (1) Acute and chronic respiratory failure Code(s): J96.20 - ACUTE AND CHR RESP FAILURE, UNSP W HYPOXIA OR HYPERCAPNIA Status: Acute Qualifiers: Respiratory failure complication: hypoxia and hypercapnia Qualified Code(s) : J96.21 - Acute and chronic respiratory failure with hypoxia; J96.22 - Acute and chronic respiratory failure with hypercapnia; J96.22 - Acute and chronic respiratory failure with hypercapnia; J96.22 - Acute and chronic respiratory failure with hypercapnia (2) Acute on chronic diastolic (congestive) heart failure Code(s): I50.33 - ACUTE ON CHRONIC DIASTOLIC (CONGESTIVE) HEART FAILURE Status : Acute (3) Acute on chronic respiratory failure with hypoxia Code(s): J96.21 - ACUTE AND CHRONIC RESPIRATORY FAILURE WITH HYPOXIA Status: Acute (4) Hypokalemia Code(s): E87.6 - HYPOKALEMIA Status: Acute (5) CKD (chronic kidney disease) Code(s): N18.9 - CHRONIC KIDNEY DISEASE, UNSPECIFIED Status: Chronic Qualifiers: Chronic kidney disease stage: stage 3 (moderate) Qualified Code(s): N18.3 - Chronic kidney disease, stage 3 (moderate) (6) DM type 2 (diabetes mellitus, type 2) Status: Chronic (7) Diastolic CHF, acute on chronic Code(s): I50.33 - ACUTE ON CHRONIC DIASTOLIC (CONGESTIVE) HEART FAILURE Status : Chronic Comment: suspect diastolic dysfunction due to hypertensive crisis. (8) Alkalosis, metabolic Code(s): E87.3 - ALKALOSIS Status: Acute - Plan PT/OT, manager social services, respiratory therapy Add Aldactone -: Extra dose of potassium -: one dose of diamox yesterday with marginal improvement on alkalosis -: Dispo when K stabilised -: Check magnessium * .
[2018-06-26] MEDS: Amiodarone 200 MG TAB PO SCH (09:11)
[2018-06-26] MEDS: glipiZIDE 5 MG TAB PO SCH (09:11)
[2018-06-26] MEDS: FLUoxetine HCl 20 MG CAP PO SCH ×2 (09:11→20:46)
[2018-06-26] MEDS: Polyethylene Glycol 3350 17 GM Packet PO SCH (09:12)
[2018-06-26] MEDS: Senokot S 8.6-50 MG TAB PO SCH ×2 (09:12→20:47)
[2018-06-26] MEDS: TICAGRELOR 90 MG TABLET PO SCH ×2 (09:12→20:45)
[2018-06-26] MEDS: hydrALAZINE 25 MG TAB PO SCH ×3 (09:12→20:45)
[2018-06-26] MEDS: Spironolactone 25 MG TAB PO SCH (09:35)
[2018-06-26] MEDS: Torsemide 100 MG TAB PO SCH ×2 (09:38→14:46)
[2018-06-26] MEDS ORDERED: Spironolactone 25 MG TAB PO SCH (09:45)
--- NOTE | 2018-06-26 18:12 | PRG ---
DATE OF SERVICE: 06/26/2018 SUBJECTIVE: Patient was seen and examined at bedside and overnight events noted. Patient denies any shortness of breath or chest pain or palpitation. No history of nausea or vomiting or diarrhea or fever or chills or cramps. OBJECTIVE: GENERAL: This is an obese male, in no apparent distress. VITAL SIGNS: Temperature 97.8, pulse 69, respiratory rate 18, and blood pressure 121/57. HEENT: Atraumatic, normocephalic. Oral mucosa is moist NECK: Supple. CARDIOVASCULAR: S1, S2 heard. Rate and rhythm regular. RESPIRATORY: Clear to auscultation. GASTROINTESTINAL: Abdomen is soft. MUSCULOSKELETAL: No tenderness. No edema. DERMATOLOGIC: No skin rash. NEUROLOGIC: Alert and awake and oriented X3. No focal neurologic deficits. Moving all the extremities. PSYCHIATRIC: Mood and affect normal. LABORATORY DATA: Potassium 2.9, BUN 52, creatinine 2.1. ASSESSMENT AND PLAN: 1. Acute kidney injury on chronic kidney disease, stage 3, stable. 2. Hypokalemia. Monitor labs. We will check serum aldosterone and renin activity. 3. Hypomagnesemia, stable. 4. Edema. 5. Cardiorenal syndrome. 6. Hypertension, stable. Monitor potassium and aggressively replace potassium. We will follow. Job ID: [id number]
[2018-06-26] MEDS: Ubidecarenone 50 MG CAP PO SCH (20:46)
[2018-06-26] MEDS: Rosuvastatin 20 MG TAB PO SCH (20:46)
[2018-06-26] MEDS: Insulin Glargine 30 UNITS in Pre-Filled Syringe 1 EACH SC SCH (21:33)
[2018-06-27 06:51] LABS: Anion Gap 15 mmol/L (10-20); BUN (Urea Nitrogen) 49 mg/dL (8.4-25.7); Calc. Creatinine Clearance 54 mL/min (70-130); Calcium 9.8 mg/dL (7.8-10.44); Carbon Dioxide 30 mmol/L (23-31); Chloride 99 mmol/L (98-107); Estimated GFR-MDRD 28; Glucose 164 mg/dL (83-110); Magnesium 2.6 mg/dL (1.6-2.6); Potassium 3.7 mmol/L (3.5-5.1); Sodium 140 mmol/L (136-145)
[2018-06-27] MEDS: HumaLOG 300 UNITS/3 ML VIAL SC PRN ×3 (08:05→17:20)
--- NOTE | 2018-06-27 08:13 | PDOC.PN ---
- Subjective Encounter Start Date: 06/27/18 Encounter Start Time: 08:11 Subjective: sob baseline, edema resolved - Objective Resuscitation Status - Order Detail: 06/12/18 11:52 Resuscitation Status Routine Resuscitation Status: FULL: Full Resuscitation MAR Reviewed: Yes Vital Signs & Weight: Vital Signs (12 hours) Temp Pulse Resp BP BP BP BP 06/27/18 08:08 97.7 F 69 18 134/63 06/27/18 05:30 80 20 06/27/18 03:38 97.8 F 85 16 104/47 L 06/27/18 00:20 70 20 120/57 L 06/26/18 20:45 75 148/67 H 06/26/18 20:44 148/67 H 06/26/18 20:15 97.7 F 75 16 148/67 H Pulse Ox 06/27/18 08:08 96 06/27/18 05:30 94 L 06/27/18 03:38 98 06/27/18 00:20 94 L 06/26/18 20:45 06/26/18 20:44 06/26/18 20:15 96 Weight Admit Weight 292 lb 6.765 oz Weight 308 lb I&O: 06/26/18 06/27/18 06/28/18 06:59 06:59 06:59 Intake Total 1960 1750 Output Total 2975 2810 Balance -1015 -1060 Result Diagrams: 06/24/18 05:32 06/27/18 05:30 Additional Labs: Accuchecks 06/27/18 06/26/18 06/26/18 05:33 20:20 16:42 POC Glucose 268 H 231 H 165 H 06/26/18 11:00 POC Glucose 273 H Phys Exam - Physical Examination Neck: no JVD Respiratory: clear to auscultation bilateral Cardiovascular: RRR, no significant murmur Gastrointestinal: soft, positive bowel sounds Musculoskeletal: no edema Dx/Plan (1) Acute on chronic diastolic (congestive) heart failure Code(s): I50.33 - ACUTE ON CHRONIC DIASTOLIC (CONGESTIVE) HEART FAILURE Status : Acute (2) Acute on chronic respiratory failure with hypoxia Code(s): J96.21 - ACUTE AND CHRONIC RESPIRATORY FAILURE WITH HYPOXIA Status: Acute (3) CKD (chronic kidney disease) Code(s): N18.9 - CHRONIC KIDNEY DISEASE, UNSPECIFIED Status: Chronic Qualifiers: Chronic kidney disease stage: stage 3 (moderate) Qualified Code(s): N18.3 - Chronic kidney disease, stage 3 (moderate) (4) Dyslipidemia Code(s): E78.5 - HYPERLIPIDEMIA, UNSPECIFIED Status: Chronic (5) HTN (hypertension) Code(s): I10 - ESSENTIAL (PRIMARY) HYPERTENSION Status: Chronic Qualifiers: Hypertension type: essential hypertension Qualified Code(s): I10 - Essential (primary) hypertension (6) Paroxysmal atrial fibrillation Code(s): I48.0 - PAROXYSMAL ATRIAL FIBRILLATION Status: Chronic Comment: (7) Sleep apnea, obstructive Code(s): G47.33 - OBSTRUCTIVE SLEEP APNEA (ADULT) (PEDIATRIC) Status: Chronic (8) Acute and chronic respiratory failure Code(s): J96.20 - ACUTE AND CHR RESP FAILURE, UNSP W HYPOXIA OR HYPERCAPNIA Status: Acute Qualifiers: Respiratory failure complication: hypoxia and hypercapnia Qualified Code(s) : J96.21 - Acute and chronic respiratory failure with hypoxia; J96.22 - Acute and chronic respiratory failure with hypercapnia; J96.22 - Acute and chronic respiratory failure with hypercapnia; J96.22 - Acute and chronic respiratory failure with hypercapnia (9) Hypokalemia Code(s): E87.6 - HYPOKALEMIA Status: Acute - Plan cont po diuretic -: cont K+ replacement -: cont amiodarone, hydralazine, nitrates -: rpt K+ in am * .
[2018-06-27] MEDS: Spironolactone 25 MG TAB PO SCH (09:06)
[2018-06-27] MEDS: hydrALAZINE 25 MG TAB PO SCH ×3 (09:06→20:38)
[2018-06-27] MEDS: cloNIDine 0.1 MG TAB PO SCH ×2 (09:06→20:37)
[2018-06-27] MEDS: Amiodarone 200 MG TAB PO SCH (09:06)
[2018-06-27] MEDS: glipiZIDE 5 MG TAB PO SCH (09:06)
[2018-06-27] MEDS: Senokot S 8.6-50 MG TAB PO SCH ×2 (09:07→20:38)
[2018-06-27] MEDS: Polyethylene Glycol 3350 17 GM Packet PO SCH (09:07)
[2018-06-27] MEDS: FLUoxetine HCl 20 MG CAP PO SCH ×2 (09:07→20:38)
[2018-06-27] MEDS: Torsemide 100 MG TAB PO SCH ×2 (09:07→15:10)
[2018-06-27] MEDS: TICAGRELOR 90 MG TABLET PO SCH ×2 (09:07→20:38)
[2018-06-27] MEDS: Rosuvastatin 20 MG TAB PO SCH (20:37)
[2018-06-27] MEDS: Insulin Glargine 30 UNITS in Pre-Filled Syringe 1 EACH SC SCH (20:38)
[2018-06-27] MEDS: Ubidecarenone 50 MG CAP PO SCH (20:38)
--- NOTE | 2018-06-27 20:44 | PRG ---
DATE OF SERVICE: 06/27/2018 SUBJECTIVE: Patient was seen and examined at bedside and overnight events noted. Patient denies any shortness of breath or chest pain or palpitation. No history of nausea or vomiting or diarrhea or fever or chills or cramps. OBJECTIVE: GENERAL: This is an obese male, in no apparent distress. VITAL SIGNS: Temperature 97.4, pulse 69, respiratory rate is 16, blood pressure 128/58. HEENT: Atraumatic, normocephalic. Oral mucosa is moist NECK: Supple. CARDIOVASCULAR: S1, S2 heard. Rate and rhythm regular. RESPIRATORY: Clear to auscultation. GASTROINTESTINAL: Abdomen is soft. MUSCULOSKELETAL: No tenderness. No edema. DERMATOLOGIC: No skin rash. NEUROLOGIC: Alert and awake and oriented X3. No focal neurologic deficits. Moving all the extremities. PSYCHIATRIC: Mood and affect normal. LABORATORY DATA: Potassium 3.7, BUN 49, creatinine 2.3. ASSESSMENT AND PLAN: 1. Acute kidney injury on chronic kidney disease, stage 4, stable. 2. Hypokalemia. Replace with caution. 3. Hypomagnesemia. 4. Edema. 5. Cardiorenal syndrome. 6. Hypertension. 7. Potassium level is much better. Monitor labs. Job ID: [id number]
[2018-06-28 06:51] LABS: Anion Gap 15 mmol/L (10-20); BUN (Urea Nitrogen) 43 mg/dL (8.4-25.7); Calc. Creatinine Clearance 60 mL/min (70-130); Calcium 9.3 mg/dL (7.8-10.44); Carbon Dioxide 27 mmol/L (23-31); Chloride 102 mmol/L (98-107); Estimated GFR-MDRD 31; Glucose 165 mg/dL (83-110); Potassium 4.2 mmol/L (3.5-5.1); Sodium 140 mmol/L (136-145)
[2018-06-28] MEDS: Spironolactone 25 MG TAB PO SCH (08:13)
[2018-06-28] MEDS: Amiodarone 200 MG TAB PO SCH (08:13)
[2018-06-28] MEDS: cloNIDine 0.1 MG TAB PO SCH (08:14)
[2018-06-28] MEDS: Senokot S 8.6-50 MG TAB PO SCH (08:14)
[2018-06-28] MEDS: TICAGRELOR 90 MG TABLET PO SCH (08:14)
[2018-06-28] MEDS: Polyethylene Glycol 3350 17 GM Packet PO SCH (08:14)
[2018-06-28] MEDS: Torsemide 100 MG TAB PO SCH (08:14)
[2018-06-28] MEDS: HumaLOG 300 UNITS/3 ML VIAL SC PRN (08:15)
[2018-06-28] MEDS: glipiZIDE 5 MG TAB PO SCH (08:15)
[2018-06-28] MEDS: hydrALAZINE 25 MG TAB PO SCH (08:15)
[2018-06-28] MEDS: FLUoxetine HCl 20 MG CAP PO SCH (08:15)
--- NOTE | 2018-06-28 08:41 | DIS ---
DATE OF ADMISSION: 06/12/2018 DATE OF DISCHARGE: 06/28/2018 DISCHARGE DISPOSITION: Discharged to home. PRIMARY CARE PROVIDER: Anselmo Reese MD. FINAL DIAGNOSES: 1. Acute on chronic diastolic heart failure. 2. Acute on chronic respiratory failure with hypoxia. 3. Hypertension. 4. Hypokalemia. 5. Paroxysmal atrial fibrillation. DISCHARGE MEDICATIONS: 1. MiraLAX 17 g in water daily p.r.n. 2. Breo Ellipta 1 inhalation daily. 3. ProAir HFA 2 puffs q.4 h. p.r.n. 4. Coenzyme Q10 of 100 mg at bedtime. 5. Crestor 20 mg a day. 6. Imdur 120 mg a day. 7. Fluoxetine 20 mg a day. 8. Clonidine 0.1 mg twice a day. 9. Aspirin 81 mg Tuesday, Tuesday, and Tuesday. 10. Brilinta 90 mg b.i.d. 11. Glipizide 5 mg p.o. b.i.d. 12. Amiodarone 200 mg p.o. daily. 13. Hydralazine 25 mg p.o. t.i.d. 14. Torsemide 50 mg p.o. b.i.d. 15. Aldactone 50 mg a day. 16. Lantus 30 units at bedtime. ALLERGIES: NO KNOWN DRUG ALLERGIES. DIET: Heart healthy, diabetic, low salt, 1500 mL fluid restriction. CODE STATUS: Full resuscitation. PENDING AT THE TIME OF DISCHARGE: Nothing. HOSPITAL COURSE: The patient admitted to [facility] through [facility] with acutely decompensated diastolic heart failure, leg swelling, shortness of breath, 2-3 pillow orthopnea. He admits to multiple holiday parties with very salty foods, etc. On physical examination, he had bilateral lower lobe rales, 3+ pitting edema of the extremities. Chest x-ray revealed pulmonary vascular congestion with blunting of diaphragms. His BNP was actually only 158. He had low potassium at 3.3, a creatinine of 1.76, which is chronic. He was started on diuresis, salt and fluid restriction. Dr. Mendez Godoy, Cardiology, was consulted, who agreed with diuresis, fluid restriction. Echocardiogram revealed the EF of 55% to 60%. He diuresed well, was seen in consultation by Dr. Vicente Elizabeth, Nephrology. The patient's potassium continued to be low. It was adjusted frequently. Currently, it is stable. He is being discharged with followup by Dr. Reese in 1 week. No procedures were done. Job ID: [id number] MTDD
[2018-06-28 10:13] VITALS: BP 115/54; TEMP 97.9
--- NOTE | 2018-06-28 12:39 | PRG ---
DATE OF SERVICE: 06/28/2018 SUBJECTIVE: Patient was seen and examined at bedside and overnight events noted. Patient denies any shortness of breath or chest pain or palpitation. No history of nausea or vomiting or diarrhea or fever or chills or cramps. OBJECTIVE: GENERAL: This is a morbidly obese male, in no apparent distress. VITAL SIGNS: Temperature 97.9. Heart rate 68. Respiratory rate 18. Blood pressure 115/54. HEENT: Atraumatic, normocephalic. Oral mucosa is moist NECK: Supple. CARDIOVASCULAR: S1, S2 heard. Rate and rhythm regular. RESPIRATORY: Clear to auscultation. GASTROINTESTINAL: Abdomen is soft. MUSCULOSKELETAL: No tenderness. No edema. DERMATOLOGIC: No skin rash. NEUROLOGIC: Alert and awake and oriented X3. No focal neurologic deficits. Moving all the extremities. PSYCHIATRIC: Mood and affect normal. LABORATORY DATA: Potassium is 4.2, BUN is 43, creatinine is 2.0. ASSESSMENT AND PLAN: 1. Acute kidney injury on chronic kidney disease, stage 4. 2. Hypokalemia . 3. Edema. 4. Cardiorenal syndrome. 5. Hypertension. 6. Morbid obesity. We will continue to follow cautious use of potassium and monitor closely. Job ID: [id number]
== END 2018-06-28 11:35 | disposition home health service (06) | DRG 291 ==
LOC: ERS 07:53 → ERHOLD 10:46 → OBSVTOIN 10:46 → 2NO 06-13 14:38
PROVIDERS: ADMIT Internal Medicine; ATTEND Internal Medicine
DX: I13.0 Hypertensive heart and chronic kidney disease with heart failure and stage 1 through stage 4 chronic kidney disease, or unspecified chronic kidney disease (principal); I50.33 Acute on chronic diastolic (congestive) heart failure; J96.21 Acute and chronic respiratory failure with hypoxia; J96.22 Acute and chronic respiratory failure with hypercapnia; I24.8 Other forms of acute ischemic heart disease; Z68.41 Body mass index [BMI] 40.0-44.9, adult; N17.9 Acute kidney failure, unspecified; E87.3 Alkalosis; N18.4 Chronic kidney disease, stage 4 (severe); E87.6 Hypokalemia; J44.9 Chronic obstructive pulmonary disease, unspecified; I48.0 Paroxysmal atrial fibrillation; G47.33 Obstructive sleep apnea (adult) (pediatric); E11.22 Type 2 diabetes mellitus with diabetic chronic kidney disease; E66.01 Morbid (severe) obesity due to excess calories; E83.42 Hypomagnesemia; E78.5 Hyperlipidemia, unspecified; I27.20 Pulmonary hypertension, unspecified; M06.9 Rheumatoid arthritis, unspecified; I25.10 Atherosclerotic heart disease of native coronary artery without angina pectoris; F32.9 Major depressive disorder, single episode, unspecified; K59.00 Constipation, unspecified; Z99.81 Dependence on supplemental oxygen; Z79.82 Long term (current) use of aspirin; Z79.84 Long term (current) use of oral hypoglycemic drugs; Z87.891 Personal history of nicotine dependence
CPT/HCPCS: 36415; 36416; 71045; 80048; 80053; 82088; 82533; 82553; 82805; 83735; 83880; 84244; 84443; 84484; 85014; 85018; 85025; 85049; 93005; 93306; 93798; 94640; J1120; J1650; J1940; J3480; J7050; J7620

== ENCOUNTER 2018-08-02 17:25 | Inpatient (IN) | payer MEDICARE, OTHER ==
[2018-08-02] MEDS ORDERED: Ondansetron PF 4 MG/2 ML Vial IVP PRN (20:17)
[2018-08-02] MEDS ORDERED: Ondansetron ODT 4 MG TAB PO PRN (20:17)
[2018-08-02] MEDS ORDERED: Acetaminophen 325 MG TAB PO PRN (20:17)
[2018-08-02 22:40] VITALS: BMI 31.3
[2018-08-03] MEDS ORDERED: hydrOXYzine 25 MG TAB PO PRN
--- NOTE | 2018-08-03 00:30 | CON ---
DATE OF CONSULTATION: This is a 50-minute initial patient evaluation of which greater than 50% of the exam was spent in counseling and coordinating the patient's care. Remainder of the exam was spent in review of the patient's medical records and formulation of treatment plan. CHIEF COMPLAINT: Status post fall 3 days ago with small left frontal intraparenchymal contusion. HISTORY OF PRESENT ILLNESS: Mr. Pagan is a 78-year-old male who presents to the [facility] for the above complaints. Apparently, the patient fell roughly 3 days ago while he was coughing due to choking on and appropriately swallowed water. The patient was sitting on the edge of the bed and began a significant coughing spell and he eventually toppled over and he believes he struck his head on the left. He does have a small healing ecchymosis above the left eyelid. He is on Brilinta and aspirin for cardiac stents that were placed in 2017. The patient has multiple comorbidities including type 2 diabetes, hypertension, coronary artery disease, morbid obesity. He denies neck pain. Review of patient's head CT shows a very small left frontal intraparenchymal hemorrhage without mass effect or midline shift. The patient's cervical spine CT is negative for acute fracture. The patient states overall he has been feeling very worn out and fatigued with some generalized weakness. He has required usage of a walker as he has felt unsteady on his feet over the past several days. Given that he has been having this fatigue and feelings of lightheadedness, he again presented to the emergency room. PHYSICAL EXAMINATION: GENERAL: The patient is awake, alert, and appropriate. GCS currently is 15. He follows commands equally in all four extremities. HEENT: Pupils are equal, round, and reactive bilaterally. GI: He is morbidly obese. IMPRESSION AND DIAGNOSIS: Status post fall with left frontal intraparenchymal hemorrhage, on aspirin and Brilinta for stents. I have discussed the patient's case and imaging with Dr. North. We have asked that obviously his Brilinta and aspirin be held for the next several weeks until his hemorrhage has resolved. Our medical colleagues will admit the patient as the patient may need a more extensive workup in regard to his fatigue and overall generalized weakness. Otherwise, the patient may eat. I would like q.2 h. neuro checks and we will repeat a head CT in the morning. I would like the patient and his to know that it is certainly a good news that he does not require a neurosurgical intervention, but we would like to monitor his small hemorrhage given that he is on blood thinners. They are appreciative of the workup and we will follow up with him in the morning, sooner should symptoms dictate. Please call with any changes in patient's neurologic status. Job ID: [id number]
[2018-08-03] MEDS ORDERED: Dextrose 50% Abboject 50 ML SYRINGE SLOW IVP PRN (00:53)
[2018-08-03] MEDS ORDERED: HumaLOG 300 UNITS/3 ML VIAL SC PRN (00:53)
[2018-08-03] MEDS ORDERED: Dextrose 5% in Water 1,000 ML IV PRN (00:53)
[2018-08-03 02:22] LABS: #Basophils 0.1 thou/uL (0.0-0.2); #Eosinphils 0.3 thou/uL (0.0-0.7); #Lymphocytes 3.7 thou/uL (1.20-3.40); #Monocytes 1.2 thou/uL (0.11-0.59); #Neutrophils 6.8 thou/uL (1.40-6.50); %Eosinophils 2.5 % (0.0-10.0); %Lymphocytes 30.5 % (21.0-51.0); %Monocytes 9.8 % (0.0-10.0); %Neutrophils 56.3 % (42.0-75.0); Hemoglobin 12.7 g/dL (14.0-18.0); Mean Corpuscular HGB CONC 31.8 g/dL (32.0-36.0); Mean Corpuscular Hemoglobin 26.2 pg (27.0-31.0); Mean Corpuscular Volume 82.3 fL (78.0-98.0); Mean Platelet Volume 8.1 fL (7.4-10.4); Platelet Count 251 thou/uL (130-400); RBC Distribution Width 15.1 % (11.5-14.5); Red Blood Cell (RBC) Count 4.85 mill/uL (4.70-6.10)
[2018-08-03 02:49] LABS: Troponin I 0.047 ng/mL (< 0.028)
[2018-08-03 02:50] LABS: Anion Gap 15 mmol/L (10-20); BUN (Urea Nitrogen) 95 mg/dL (8.4-25.7); Calc. Creatinine Clearance 47 mL/min (70-130); Calcium 9.7 mg/dL (7.8-10.44); Carbon Dioxide 37 mmol/L (23-31); Chloride 87 mmol/L (98-107); Estimated GFR-MDRD 23; Glucose 289 mg/dL (83-110); Sodium 136 mmol/L (136-145)
[2018-08-03] MEDS: HumaLOG 300 UNITS/3 ML VIAL SC PRN ×3 (06:39→17:30)
--- NOTE | 2018-08-03 07:01 | HP ---
PRIMARY CARE PHYSICIAN: Anselmo Reese MD. CODE STATUS: Full code. TIME OF EVALUATION: 7:30 p.m. CHIEF COMPLAINT: Confusion. HISTORY OF PRESENT ILLNESS: This is a 78-year-old male patient, with past medical history of COPD, CHF, hyperlipidemia, hypertension, diabetes, and sleep apnea. The patient came to the hospital after having an episode of confusion and also having a fall . After that the patient was choking while drinking a bottle of water. The patient reported no loss of consciousness, but generalized weakness. Symptoms are generalized, [id number], severe weakness. REVIEW OF SYSTEMS: CONSTITUTIONAL: No fever, chills, or generalized weakness. RESPIRATORY: No cough, sputum production, or shortness of breath. CARDIOVASCULAR: No chest pain or palpitation. GASTROINTESTINAL: No nausea, no vomiting, diarrhea, or abdominal pain. DIRECTOR OF [employer]ETING: No dizziness, headache, or feeling lightheaded. GENITOURINARY: No burning on urination. EXTREMITIES: No leg swelling. All other systems were reviewed and negative except for the findings mentioned above. PAST MEDICAL HISTORY: As mentioned in the HPI. SURGICAL HISTORY: Back surgery, hip surgery, face surgery, the patient had cardiac stents x7, left shoulder surgery, pilonidal cyst removal. PSYCHIATRIC HISTORY: Depression. FAMILY HISTORY: Reviewed and noncontributory for current presentation SOCIAL HISTORY: No alcohol, no drugs. Former tobacco user. Smokes cigarettes, chew tobacco. KNOWN ALLERGIES: No known drug allergies. REPORTED MEDICATIONS: 1. Fluoxetine. 2. Aspirin. 3. Coenzyme Q10. 4. Potassium chloride. 5. Brilinta. 6. Metolazone. 7. Amiodarone. 8. Otezla. 9. Budesonide. 10. Breo Ellipta. 11. Torsemide. 12. Glipizide. 13. Isosorbide mononitrate. 14. Clonidine. 15. Brovana. 16. Hydroxyzine. 17. Crestor. PHYSICAL EXAMINATION: VITAL SIGNS: On presentation, blood pressure 104/62, heart rate 76, respiratory rate was 18, temperature 97.5. Pain was 0/10. Oxygen saturation was 100 on 3 L. GENERAL APPEARANCE: The patient is alert, in mild distress due to symptoms. HEENT: Eyes, normal conjunctivae. Moist oral mucosa. Anicteric. NECK: No JVD. RESPIRATORY: Bilateral air entry. The patient is on nasal cannula. No rales. No wheezing. Symmetric expansion. CARDIOVASCULAR: Normal rate, regular rhythm. No murmurs. No gallop. EXTREMITIES: Mild bilateral leg edema. ABDOMEN: Soft, normal bowel sounds. The patient is morbidly obese. MUSCULOSKELETAL: Baseline range of motion and strength. No tenderness. SKIN: Warm, intact. No pallor. No rash. No redness. Bilateral lower extremities, especially in the left lower extremity, the patient has psoriatic lesions and significant redness. No evidence of infection. There are chronic changes color. Peripheral pulses are present. Capillary refill seems to be intact. NEUROLOGIC: No evidence of any new focal weakness. Baseline speech. Cranial nerves seems to be intact. PSYCHIATRIC: The patient is in good mood. No anxiety. Optimal judgment. IMAGING STUDIES: Chest x-ray was reviewed. The patient has chronic changes. No acute findings. Brain CT was done. The patient has 1 cm hyperdense focus adjacent to the frontal horn of the left lateral ventricle, has moderate parenchymal hemorrhages present given the history of recent trauma, extensive encephalomalacia in the right frontal lobe from prior stroke; spine CT was done. The patient had prominent degenerative changes which have worsened considerably since 2007 CT. This is particularly throughout the C5-C6 level. There is flexion of the neck which could be a combination of muscle spasm and his normal state. Facial bone CT, some chronic changes as noted, but no acute traumatic findings. LABORATORY DATA: Labs were reviewed. The patient has a white count of 13.8, hemoglobin 14.3, MCV 79, platelet count 318. Coagulation was not done. Chemistry ; sodium 133, potassium 3.0, chloride 77, carbon dioxide 41, anion gap 17, BUN 99, creatinine 2.92, is elevated compared to previous values of 2.0, glucose 166. Lactic acid was normal. LFTs mildly elevated. UA was done and negative. ASSESSMENT AND PLAN: The patient will be placed in the hospital with following medical problems: 1. Intracranial hemorrhage, it is intraparenchymatous. No need for any neurosurgical intervention. We will monitor due to the fact that the patient was on blood thinners previously. We will adjust treatment as the patient's clinical course. 2. Leukocytosis. His white count 13.8, unclear etiology, may be due to acute physical distress. We will monitor; we will treat for sepsis, if any evidence of infection appears. 3. Hypokalemia, potassium 3.0. We will replace electrolytes as needed. 4. Acute on chronic kidney injury. The patient has a creatinine 2.92, in previous admissions creatinine was 2.0, we will monitor, if not improving might need Nephrology for assistance with this case. We will hydrate with caution. 5. Mildly elevated troponin; however, in previous admissions, troponin has been about the same level. We will repeat another level and treat accordingly. 6. History of chronic obstructive pulmonary disease. This seems to be stable. The patient is on nasal cannula. He is in chronic respiratory failure with home oxygen. Reconcile home medications, we will adjust treatment as needed. 7. History of congestive heart failure. Reconcile home medications. This seems to be on the right side. We will adjust treatment as needed. 8. Hyperlipidemia, low-cholesterol diet is advised. Reconcile home medications. 9. Uncontrolled diabetes. We will place the patient on sliding scale, reconcile home medications. 10. Chronic respiratory failure on home oxygen, continue therapy as inpatient. 11. History of psoriasis. Reconcile home medications. 12. Deep venous thrombosis prophylaxis, unable to give Lovenox because of the intracranial bleeding and unable to place SCDs due to PVD and chronic lymphangitis bilaterally. Job ID: [id number] [facility]
--- NOTE | 2018-08-03 07:28 | CT ---
CT BRAIN WITHOUT CONTRAST: Indication: Follow up examination for intraparenchymal hemorrhage. Comparison: 08-02-18 FINDINGS: The 0.9-1 cm intraparenchymal hematoma involving the left frontal lobe is stable. Encephalomalacia in volving the right frontal lobe is stable. Septum pellucidum and third ventricle are midline. Mild gen eralized atrophy with mild chronic small vessel ischemic change stable. There is partial effusion inv olving the mastoid air cells which is stable. IMPRESSION: 1. Stable CT of the brain with stable intraparenchymal hemorrhage seen within the left frontal lobe m easuring 0.9 to 1 cm in size. 2. Other stable findings. POS: BH
[2018-08-03] MEDS: Amiodarone 200 MG TAB PO SCH (08:28)
[2018-08-03] MEDS ORDERED: Spironolactone 25 MG TAB PO SCH ×2 (12:45→15:45)
[2018-08-03] MEDS ORDERED: Potassium Chloride 20 MEQ TAB PO SCH (12:45)
[2018-08-03 13:55] LABS: Anion Gap 14 mmol/L (10-20); BUN (Urea Nitrogen) 82 mg/dL (8.4-25.7); Calc. Creatinine Clearance 52 mL/min (70-130); Calcium 10.1 mg/dL (7.8-10.44); Carbon Dioxide 36 mmol/L (23-31); Chloride 87 mmol/L (98-107); Estimated GFR-MDRD 26; Glucose 290 mg/dL (83-110); Magnesium 3.1 mg/dL (1.6-2.6); Potassium 3.4 mmol/L (3.5-5.1); Sodium 134 mmol/L (136-145)
--- NOTE | 2018-08-03 15:39 | PRG ---
DATE OF SERVICE: 08/03/2018 Mr. Pagan is now hospital day #1, having sustained a fall with a very small left contusion. This is stable on repeat CT from this morning. He denies headache or blurred vision. Overall healing. GCS currently is 15. He has good strength in all the extremities are. His main issues now are medical and he is nonsurgical as his contusion is stable. He should remain off aspirin and Brilinta until we can see him in followup in the next 2 to 3 weeks. We will arrange for this as well as repeat noncontrast head CT in outpatient followup. Discussed this with the patient and his at bedside and they are very pleased that he does not require surgery. We will follow up on an outpatient basis. Job ID: [id number]
[2018-08-03] MEDS ORDERED: Labetalol HCl 100 MG/20 ML VIAL SLOW IVP PRN (15:44)
[2018-08-03] MEDS: Potassium Chloride 20 MEQ TAB PO SCH (16:15)
[2018-08-03] MEDS ORDERED: PROVENTIL INHALER 6.7 G (200 INHALATIONS) INH PRN (19:28)
[2018-08-03] MEDS ORDERED: Polyethylene Glycol 3350 17 GM Packet PO PRN (19:28)
--- NOTE | 2018-08-03 20:44 | PRG ---
DATE OF SERVICE: 08/03/2018 SUBJECTIVE: The patient denies any chest pain, shortness of breath, palpitations, or new focal neurologic deficit. No new headaches. OBJECTIVE: VITAL SIGNS: Temperature 97.7, pulse rate of 71, blood pressure 157/71, respirations of 20, and O2 saturation 97% on nasal cannula. GENERAL: A 78-year-old male, in no apparent distress. Denies any chest pain. LUNGS: Showed diminished air entry at bilateral bases. HEART: S1 and S2 present. Regular rate and rhythm. ABDOMEN: Soft and obese. Bowel sounds present. EXTREMITIES: 1+ edema in bilateral lower extremity. No calf tenderness. NEUROLOGIC: Grossly nonfocal. Power was 5/5 in all extremities. REVIEW OF SYSTEMS: All other review of systems were reviewed and were found negative. IMAGING DATA: Telemetry monitoring by my review showed sinus rhythm. LABORATORY FINDINGS: WBC 12.0, hemoglobin 12.7, hematocrit 39.9, platelet 251. Chemistry showed sodium 134, potassium was 3.0 earlier today, repeat potassium 3.4, bicarbonate of 37, BUN 95, creatinine 2.66. Creatinine last night was 2.92. Repeat creatinine this afternoon was 2.4. Troponin 0.053. Repeat troponin was 0.047. Repeat CT scan of the brain this morning showed stable intraparenchymal hemorrhage in the left frontal lobe measuring 0.9 to 1 cm in size. IMPRESSION: 1. Status post fall causing intraparenchymal hemorrhage in the left frontal lobe. Aspirin and Brilinta have been discontinued. 2. Obesity with a BMI of 31.3. 3. Chronic diastolic heart failure, compensated. 4. Hypokalemia/hyponatremia. 5. Acute kidney injury on chronic kidney disease, stage 4. 6. Contraction alkalosis probably secondary to diuretics. 7. Diabetes mellitus, type 2. 8. Hyperlipidemia. 9. Paroxysmal atrial fibrillation. 10. Chronic respiratory failure, on home oxygen. 11. Obstructive sleep apnea, on CPAP. PLAN: 1. Aspirin and Brilinta are currently on hold per Neurosurgery. We will replace potassium. We will consult Nephrology for acute kidney injury as well as medication optimization. We will reduce torsemide to 50 mg once a day. We will continue isosorbide mononitrate. Continue other home medications. We will continue sliding scale. 2. We will consult Physical Therapy and Occupational Therapy. Fall precautions. DISPOSITION: Probably in 1 to 2 days if okay with Nephrology. Recheck labs in a.m. Job ID: [id number]
[2018-08-03] MEDS: FLUoxetine HCl 20 MG CAP PO SCH (20:47)
[2018-08-03] MEDS ORDERED: FLUOXETINE HCL PO SCH (21:00)
[2018-08-03] MEDS ORDERED: Insulin Glargine 30 UNITS in Pre-Filled Syringe 1 EACH SC SCH (21:00)
--- NOTE | 2018-08-03 21:01 | CON ---
DATE OF CONSULTATION: REASON FOR CONSULTATION: Elevated creatinine and metabolic alkalosis. HISTORY OF PRESENT ILLNESS: This is a very pleasant 78-year-old gentleman with history of CKD, presented to the hospital for being confused. The patient was noted to have intracranial hemorrhage. The patient's creatinine was 2.6 on admission. His prior creatinine was anywhere from 1.7 to 2.9. He has had CKD since 2017 with progressive rise in creatinine. The patient can give no further history. PAST MEDICAL HISTORY: Reviewed. Congestive heart failure, hypertension, diabetes, sleep apnea, history of back surgery, face surgery, cardiac stents. SOCIAL HISTORY: No alcohol or drug use. FAMILY HISTORY: Negative for ESRD. ALLERGIES: REVIEWED. HOME MEDICATIONS: List reviewed. REVIEW OF SYSTEMS: Unobtainable. PHYSICAL EXAMINATION: GENERAL: The patient is awake, alert. VITAL SIGNS: Afebrile. Pulse 73, breathing 16, and blood pressure 156/77. GENERAL APPEARANCE AND MENTAL STATUS: Fair. HEAD/NECK: Normocephalic. Atraumatic. EYES: EOMI. No deformity. EARS: Clear. No ulcers. NOSE: Intact. No lesions. MOUTH: Clear. No discharge. THROAT: Clear. No exudate. LUNGS: Clear. No crackles. CARDIAC: S1, S2. No rub. ABDOMEN: Benign. Bowel sounds positive. GENITALIA/RECTUM: Polk absent. BACK/EXTREMITIES: Edema 0+. NEUROLOGICAL: Alert and motor intact. SKIN: LYMPHATICS: LABORATORY DATA: Creatinine 2.6, potassium 3.0. ASSESSMENT AND RECOMMENDATION: 1. Acute kidney injury, chronic kidney disease, multifactorial. I would recommend decreasing the spironolactone to 25 mg once a day and recheck labs in the morning. Continue gentle hydration if needed. 2. Anemia, stable. 3. Medication based on GFR appropriate. 4. Elevated bicarb check ABg he as elevated CO2 in the past. Job ID: [id number] [facility]
[2018-08-04 05:52] LABS: Anion Gap 15 mmol/L (10-20); BUN (Urea Nitrogen) 66 mg/dL (8.4-25.7); Calc. Creatinine Clearance 62 mL/min (70-130); Calcium 10.1 mg/dL (7.8-10.44); Carbon Dioxide 34 mmol/L (23-31); Chloride 91 mmol/L (98-107); Estimated GFR-MDRD 33; Glucose 186 mg/dL (83-110); Potassium 3.1 mmol/L (3.5-5.1); Sodium 137 mmol/L (136-145)
[2018-08-04] MEDS: HumaLOG 300 UNITS/3 ML VIAL SC PRN ×2 (06:01→12:07)
[2018-08-04] MEDS ORDERED: glipiZIDE 5 MG TAB PO SCH (07:30)
[2018-08-04] MEDS: Potassium Chloride 20 MEQ TAB PO SCH (07:46)
[2018-08-04] MEDS ORDERED: Spironolactone 25 MG TAB PO SCH ×3 (08:00)
[2018-08-04] MEDS ORDERED: Rosuvastatin 20 MG TAB PO SCH (09:00)
[2018-08-04] MEDS ORDERED: Torsemide 20 MG TAB PO SCH ×2 (09:00)
[2018-08-04] MEDS ORDERED: Insulin Glargine 15 UNITS in Pre-Filled Syringe SC SCH (09:00)
[2018-08-04] MEDS: Amiodarone 200 MG TAB PO SCH (09:11)
[2018-08-04] MEDS: FLUoxetine HCl 20 MG CAP PO SCH (09:11)
--- NOTE | 2018-08-04 09:23 | PRG ---
DATE OF SERVICE: 08/04/2018 SUBJECTIVE: A 78-year-old gentleman being seen for acute kidney injury. The patient denies nausea, vomiting, or chest pain. OBJECTIVE: See above. CONSTITUTIONAL: The patient is awake and alert. VITAL SIGNS: Afebrile. Pulse breathing 16, blood pressure 129/67. GENERAL APPEARANCE AND MENTAL STATUS: Fair. HEAD/NECK: Normocephalic. Atraumatic. EYES: EOMI. No deformity. EARS: Clear. No ulcers. NOSE: Intact. No lesions. MOUTH: Clear. No discharge. THROAT: Clear. No exudate. LUNGS: Clear. No crackles. CARDIAC: S1, S2. No rub. ABDOMEN: Benign. Bowel sounds positive. GENITALIA/RECTUM: Polk absent. BACK/EXTREMITIES: Lower extremities show edema. NEUROLOGICAL: Alert and motor intact. SKIN: LYMPHATICS: LABORATORY DATA: Show creatinine 1.8. ASSESSMENT AND RECOMMENDATION: 1. Acute kidney injury, improved. 2. Chronic kidney disease stage 3, stable. 3. Hypertension, stable. 4. Hypokalemia. Recommend potassium replacement. Elevated bicarbonate. We would recommend checking a blood gas. The patient has respiratory acidosis. Job ID: [id number]
[2018-08-04 11:27] VITALS: TEMP 98.9
[2018-08-04 12:42] LABS: Actual Bicarbonate (HCO3a) 37.5 mEq/L (22-28); Base Excess (BEa) 11.9 mEq/L (-2.0 to +3.0); CO2 Tension 52.5 mmHg (35.0-45.0); Calcium, Ionized 1.18 mmol/L (1.12-1.30); Carboxyhemoglobin (COHb) 1.6 gm% (0.0-3.0); Hemoglobin (Hb) 13.4 g/dL (14.0-18.0); O2 Tension (PaO2) 71.8 mmHg (> 70.0); Potassium - ABG Lab 3.15 mmol/L (3.70-5.30); pH, Arterial 7.47 (7.35-7.45)
[2018-08-04 12:43] LABS: ALV-art Gradient 33.695 (0-20); Puncture Site L.R.
[2018-08-04 13:49] VITALS: BP 140/68
--- NOTE | 2018-08-05 01:27 | DIS ---
DATE OF ADMISSION: 08/02/2018 DATE OF DISCHARGE: 08/04/2018 DISCHARGE DISPOSITION: Home. FOLLOWUP: 1. Follow up with primary care physician, Dr. Reese, in 1 week. 2. Follow up with Nephrology, Dr. Roque, next week. 3. Follow up with Neurosurgery, Dr. North, in 2 weeks. ALLERGIES: NO KNOWN DRUG ALLERGIES. THE PATIENT WAS SEEN AND EXAMINED ON THE DAY OF DISCHARGE. DENIES ANY NEW COMPLAINTS. NO CHEST PAIN, SHORTNESS OF BREATH, OR PALPITATIONS REPORTED. HE DENIES ANY NEW FOCAL DEFICIT. BRIEF HOSPITAL COURSE: The patient is a 78-year-old male with congestive heart failure, hypertension, diabetes mellitus type 2, CKD and obstructive sleep apnea with recent fall, presented to the hospital with altered mentation. CT scan of the brain in the emergency room showed 1 cm hyperdense focus in left frontal lobe. Aspirin and Brilinta were held. The patient was evaluated by Neurosurgery, Dr. North. He underwent a repeat CT next morning that did not show worsening of intraparenchymal hemorrhage. He will hold aspirin and Plavix for up to 2 to 3 weeks per Neurosurgery. He was advised to follow up with Neurosurgery in 2 weeks. The patient was also found to have acute kidney injury on chronic kidney disease stage 3. His creatinine on admission was 2.92 that improved to 1.99. Torsemide dose has been reduced from 100 mg daily to 20 mg daily. Potassium supplementation has been discontinued. Aldactone dose was reduced to 25 mg daily. All other home medications were left unchanged. [facility] care will be resumed. He also had some electrolyte abnormalities, which were replaced. On the day of discharge, he had ABGs that showed pH of 7.47, pCO2 of 52.5, bicarbonate 37.5, and PO2 of 71.8. The patient was evaluated by Neurosurgery and Nephrology this admission. LABORATORY DATA: Significant labs: Potassium on admission 3.0, at discharge 3.1. Sodium 134. Urinalysis was negative. Troponin was 0.047. Bicarbonate on admission was 41, at discharge was 34. FINAL DIAGNOSES: 1. Toxic metabolic encephalopathy secondary to intraparenchymal hemorrhage in the setting of recent fall. 2. Obesity with a BMI of 31.3. 3. Acute kidney injury on chronic kidney disease stage 3. 4. Hypokalemia, replace. 5. Hyponatremia. 6. Contraction alkalosis probably secondary to diuretics. 7. Diabetes mellitus type 2. 8. Hyperlipidemia. 9. Paroxysmal atrial fibrillation. 10. Obstructive sleep apnea, on CPAP. 11. Chronic respiratory failure, on home oxygen. 12. Elevated troponin, secondary to demand ischemia. PLAN: Plan was discussed with the patient in detail. He stated understanding. Fall precaution was emphasized. TIME SPENT: Total time coordinating the discharge of this patient was 35 minutes. Job ID: [id number]
== END 2018-08-04 14:11 | disposition home health service (06) | DRG 85 ==
LOC: ERS 17:25 → 2SE 20:05
PROVIDERS: ADMIT Emergency Medicine; ATTEND Emergency Medicine
DX: S06.350A Traumatic hemorrhage of left cerebrum without loss of consciousness, initial encounter (principal); G92 Toxic encephalopathy; N17.9 Acute kidney failure, unspecified; I13.0 Hypertensive heart and chronic kidney disease with heart failure and stage 1 through stage 4 chronic kidney disease, or unspecified chronic kidney disease; E87.1 Hypo-osmolality and hyponatremia; J96.10 Chronic respiratory failure, unspecified whether with hypoxia or hypercapnia; I24.8 Other forms of acute ischemic heart disease; I50.32 Chronic diastolic (congestive) heart failure; E87.3 Alkalosis; E11.22 Type 2 diabetes mellitus with diabetic chronic kidney disease; I48.0 Paroxysmal atrial fibrillation; Z99.81 Dependence on supplemental oxygen; J44.9 Chronic obstructive pulmonary disease, unspecified; E11.65 Type 2 diabetes mellitus with hyperglycemia; E66.01 Morbid (severe) obesity due to excess calories; N18.3 Chronic kidney disease, stage 3 (moderate); E87.6 Hypokalemia; Z68.31 Body mass index [BMI] 31.0-31.9, adult; E78.5 Hyperlipidemia, unspecified; G47.33 Obstructive sleep apnea (adult) (pediatric); F32.9 Major depressive disorder, single episode, unspecified; Z87.891 Personal history of nicotine dependence; Z79.02 Long term (current) use of antithrombotics/antiplatelets; Z79.4 Long term (current) use of insulin; Z79.82 Long term (current) use of aspirin; Z79.899 Other long term (current) drug therapy; Z95.5 Presence of coronary angioplasty implant and graft; W18.30XA Fall on same level, unspecified, initial encounter
CPT/HCPCS: 36415; 36416; 70450; 80048; 82805; 83735; 84484; 85025; 99284; G0390; J1825

== ENCOUNTER 2018-08-25 09:22 | Outpatient (CLI) | payer MEDICARE ==
--- NOTE | 2018-08-25 11:39 | CT ---
HEAD CT WITHOUT CONTRAST: DATE: 08/25/2018. COMPARISON: 08/03/2018. HISTORY: Reevaluate intracranial hemorrhage noted on prior imaging. TECHNIQUE: Axial CT imaging is obtained at 5 mm intervals from vertex through the skull base without contrast. FINDINGS: The imaged paranasal sinuses and mastoid air cells demonstrate partial opacification of inferior righ t mastoid air cells and posterior aspect right sphenoid sinus, unchanged. No displaced calvarial fra cture. There is encephalomalacia involving the right frontal lobe consistent with prior right frontal lobe i nfarction. On prior examination dated 08/02/2018 and 08/03/2018, an intraaxial hyperdense focus was noted adjacent to the frontal horn of the left lateral ventricle measuring up to 1.1 cm. On today's examination, t hat finding is grossly unchanged. No acute hemorrhage is identified. IMPRESSION: Stable head CT as detailed above. Hyperdense intraaxial focus and periventricular white matter adjac ent to frontal horn of left lateral ventricle is stable. This may, in fact, represent a hyperdense i ntraaxial lesion, such as a cavernoma, given the lack of interval change since 08/02/2018. If the pat ient is able, MRI could be beneficial for full characterization. POS: [facility]
== END 2018-08-25 09:23 | disposition home or self-care (01) ==
LOC: TBSIIMAG 09:22
PROVIDERS: ATTEND Surgery
DX: I62.9 Nontraumatic intracranial hemorrhage, unspecified (principal); R90.82 White matter disease, unspecified
CPT/HCPCS: 70450

== ENCOUNTER 2019-01-02 08:56 | Outpatient (CLI) | payer MEDICARE ==
--- NOTE | 2019-01-03 15:35 | PFT ---
PATIENT HISTORY: HEIGHT: 73 WEIGHT: 185 SMOKER: NO HOW LON YRS PACKS PER DAY: 1 PRODUCTIVE COUGH: LUNG DISEASE: PHYSICIAN INTERPRETATION FINAL REPORT: Severe reduction in both Expiratory Flows and Vital Capacity, no further improvement after Bronchodilator Therapy. Diffusion capacity was severely reduced. Had a previous PFT which now shows the numbers particularly the diffusion capacity has worsened. IMPRESSION: Mixed restrictive obstructive pulmonary impairment severely reduced diffusion capacity Bag Machine Operator Helper: GENE Machine Tank Operator: GENE GREER
== END 2019-01-02 08:57 | disposition home or self-care (01) ==
LOC: CP 08:56
PROVIDERS: ATTEND Internal Medicine
DX: J44.9 Chronic obstructive pulmonary disease, unspecified (principal); J96.11 Chronic respiratory failure with hypoxia; G47.33 Obstructive sleep apnea (adult) (pediatric); R94.2 Abnormal results of pulmonary function studies
CPT/HCPCS: 94060; 94729